=== PATIENT | female | born 1945 | race Caucasian/White ===

== ENCOUNTER → 2018-11-18 13:33 | Outpatient (CLI) | payer MEDICARE, OTHER, SELFPAY ==
--- NOTE | 2018-11-18 13:38 | XR_ITS ---
PROCEDURE: XR HIP RT 2-3V W/PELVIS CLINICAL INDICATION: hip pain COMPARISON: XR FEMUR RT 2V from 11/18/2018 FINDINGS: There has been a prior total hip prosthesis placed on the left. There is some hypertrophic change of the left greater trochanter on the right there is a bipolar prosthesis. The femoral stem of the prosthesis extends to the mid femoral region. In addition, there is a long lateral bone plate extending from the proximal femur to the distal femur transfixed by multiple screws. There has been a total knee prosthesis placement on the right as well. No obvious orthopedic complication. No acute fracture or dislocation. There is good alignment. IMPRESSION: Postsurgical changes in both hips, right femur, and right knee as described above with no acute finding Dictated by: Roni Howard MD 11/18/2018 15:48 Signed by: <Electronically signed by Roni Howard MD in [place]> 11/18/2018 15:48
== END ==
PROVIDERS: PCP Emergency Medicine; Visit Provider Emergency Medicine
DX: M79.604 Pain in right leg; M25.551 Pain in right hip
CPT/HCPCS: 73502; 73552

== ENCOUNTER → 2019-01-11 07:50 | Outpatient (CLI) | payer MEDICARE, OTHER, SELFPAY ==
--- NOTE | 2019-01-11 07:51 | MR_ITS ---
PROCEDURE: MR LUMBAR SPINE WO CON CLINICAL INDICATION: back pain Right-sided low back pain with right leg pain numbness and tingling COMPARISON: No exams were available for comparison TECHNIQUE: Standard multiplanar multiecho sequences are performed without contrast. 3-D MIP and myelographic images are also rendered and reviewed FINDINGS: The spinal cord ends at the T12-L1 level. There is normal alignment. L1-L2: Mild degenerative disc disease with mild facet ligamentum hypertrophy with mild bilateral lateral recess narrowing L2-L3: There is moderate to severe facet and ligamentum hypertrophy with moderate to severe bilateral lateral recess narrowing and mild bilateral foraminal narrowing. There is transverse narrowing of the canal at this level. L3-L4: Severe facet and ligamentum hypertrophy with moderate to severe bilateral lateral recess narrowing and moderate right foraminal narrowing. There is canal stenosis at this level. Canal measures approximately 8 mm. L4-5: Bulging disc with severe facet and ligamentum hypertrophy with severe bilateral lateral recess narrowing and moderate to severe bilateral foraminal narrowing slightly greater on the right compared to the left. The canal measures approximately 5 mm in AP dimension at this level. L5-S1: Degenerative disc disease with bulging disc and a broad based left paracentral/foraminal/lateral disc protrusion with severe along with facet and ligamentum hypertrophy with severe left lateral recess and foraminal narrowing. There is moderate right foraminal narrowing and lateral recess narrowing on the right as well. IMPRESSION: 1. Abnormal MRI of the lumbar spine with multi level lumbar spondylosis with bulging disc, facet and ligamentum hypertrophy with varying degrees of lateral recess and foraminal narrowing and multilevel canal stenosis. Please see above for detailed description at each level. 2. L2-L3: There is moderate to severe facet and ligamentum hypertrophy with moderate to severe bilateral lateral recess narrowing and mild bilateral foraminal narrowing. There is transverse narrowing of the canal at this level. 3. L3-L4: Severe facet and ligamentum hypertrophy with moderate to severe bilateral lateral recess narrowing and moderate right foraminal narrowing. There is canal stenosis at this level. Canal measures approximately 8 mm. 4. L4-5: Bulging disc with severe facet and ligamentum hypertrophy with severe bilateral lateral recess narrowing and moderate to severe bilateral foraminal narrowing slightly greater on the right compared to the left. The canal measures approximately 5 mm in AP dimension at this level. 5. L5-S1: Degenerative disc disease with bulging disc and a broad based left paracentral/foraminal/lateral disc protrusion with severe along with facet and ligamentum hypertrophy with severe left lateral recess and foraminal narrowing. There is moderate right foraminal narrowing and lateral recess narrowing on the right as well. Dictated by: Roni Howard MD 01/12/2019 13:05 Electronically signed by Roni Howard MD in [place] 01/12/2019 13:05
== END ==
PROVIDERS: PCP Emergency Medicine; Visit Provider Emergency Medicine
DX: M54.9 Dorsalgia, unspecified (principal)
CPT/HCPCS: 72148; 76376

== ENCOUNTER → 2019-01-24 13:38 | Outpatient (CLI) | payer MEDICARE, OTHER, SELFPAY ==
[2019-01-24 14:40] LABS: Amphetamine/Metha Screen,Urine Negative ng/mL (<1000); Barbiturates Screen,Urine Negative ng/mL (<200); Benzodiazepines Screen,Urine Negative ng/mL (<200); Cannabinoid Screen,Urine Negative ng/mL (<50); Cocaine Screen,Urine Negative ng/mL (<300); Methadone Screen,Urine Negative ng/mL (<300); Opiate Screen,Urine Negative ng/mL (<300); Phencyclidine Screen,Urine Negative ng/mL (<25)
[2019-02-03 17:14] LABS: Opiates Negative (Cutoff=100); Oxymorphone (GC/MS) 133 ng/mL (Cutoff=100)
== END ==
PROVIDERS: Visit Provider Emergency Medicine
DX: Z79.899 Other long term (current) drug therapy (principal)
CPT/HCPCS: 80305; 80361; 80365; G0480

== ENCOUNTER → 2019-02-22 16:51 | Outpatient (CLI) | payer MEDICARE, OTHER, SELFPAY | PROVIDERS: Visit Provider Emergency Medicine | DX: M54.9 Dorsalgia, unspecified (principal); M47.816 Spondylosis without myelopathy or radiculopathy, lumbar region; M48.061 Spinal stenosis, lumbar region without neurogenic claudication ==

== ENCOUNTER → 2019-06-16 16:51 | Outpatient (CLI) | payer MEDICARE, OTHER, SELFPAY ==
[2019-06-16 18:51] LABS: Phencyclidine Screen,Urine Negative ng/ml (<25)
[2019-06-16 19:00] LABS: Amphetamine/Metha Screen,Urine Negative ng/ml (<1000); Barbiturates Screen,Urine Negative ng/ml (<200)
[2019-06-16 19:01] LABS: Benzodiazepines Screen,Urine Negative ng/ml (<200)
[2019-06-16 19:02] LABS: Cannabinoid Screen,Urine Negative ng/ml (<50); Opiate Screen,Urine Negative ng/ml (<300)
[2019-06-16 19:03] LABS: Cocaine Screen,Urine Negative ng/ml (<300)
[2019-06-16 19:04] LABS: Methadone Screen,Urine Negative ng/ml (<300)
== END ==
PROVIDERS: Visit Provider Emergency Medicine
DX: M54.5 Low back pain (principal)
CPT/HCPCS: 80305

== ENCOUNTER → 2020-10-04 10:54 | Outpatient (CLI) | payer MEDICARE, OTHER, SELFPAY ==
--- NOTE | 2020-10-04 11:00 | XR_ITS ---
PROCEDURE: XR CHEST 2V CLINICAL HISTORY: shortness of breath COMPARISON: MR MR LUMBAR SPINE WO CON from 01/11/2019 FINDINGS: The cardiomediastinal silhouette and pulmonary vascularity are within normal limits. There is calcified granuloma in the left upper lobe. The remaining lungs are clear. There is mild wedging involving the L1 vertebral body which appears chronic but was not present on 01/11/2019 MRI. There is loss of height anteriorly of approximately 40 percent IMPRESSION: No acute chest findings. Interval development of L1 compression fracture which appears chronic but was not present on 01/11/2019 Dictated by: Roni Howard MD 10/04/2020 11:57 Roni Howard MD in [place] 10/04/2020 11:57
== END ==
PROVIDERS: PCP Emergency Medicine; Visit Provider Emergency Medicine
DX: R06.02 Shortness of breath (principal)
CPT/HCPCS: 71046

== ENCOUNTER → 2020-10-07 17:36 | Outpatient (CLI) | payer MEDICARE, OTHER, SELFPAY ==
[2020-10-07 18:49] LABS: Amphetamine/Metha Screen,Urine Negative ng/ml (<1000)
[2020-10-07 18:50] LABS: Barbiturates Screen,Urine Negative ng/ml (<200); Benzodiazepines Screen,Urine Negative ng/ml (<200)
[2020-10-07 18:51] LABS: Cannabinoid Screen,Urine Negative ng/ml (<50)
[2020-10-07 18:52] LABS: Cocaine Screen,Urine Negative ng/ml (<300); Methadone Screen,Urine Negative ng/ml (<300)
[2020-10-07 18:53] LABS: Opiate Screen,Urine Positive ng/ml (<300); Phencyclidine Screen,Urine Negative ng/ml (<25)
== END ==
PROVIDERS: Visit Provider Emergency Medicine
DX: M54.5 Low back pain (principal)
CPT/HCPCS: 80305

== ENCOUNTER → 2020-12-03 18:05 | Outpatient (CLI) | payer MEDICARE, OTHER, SELFPAY ==
[2020-12-03 19:45] LABS: Amphetamine/Metha Screen,Urine Negative ng/ml (<1000)
[2020-12-03 19:46] LABS: Barbiturates Screen,Urine Negative ng/ml (<200); Benzodiazepines Screen,Urine Negative ng/ml (<200)
[2020-12-03 19:47] LABS: Cannabinoid Screen,Urine Negative ng/ml (<50)
[2020-12-03 19:48] LABS: Cocaine Screen,Urine Negative ng/ml (<300); Methadone Screen,Urine Negative ng/ml (<300)
[2020-12-03 19:49] LABS: Opiate Screen,Urine Positive ng/ml (<300)
[2020-12-03 19:50] LABS: Phencyclidine Screen,Urine Negative ng/ml (<25)
== END ==
PROVIDERS: Visit Provider Emergency Medicine
DX: M47.816 Spondylosis without myelopathy or radiculopathy, lumbar region (principal)
CPT/HCPCS: 80305

== ENCOUNTER → 2020-12-30 16:32 | Outpatient (CLI) | payer MEDICARE, OTHER, SELFPAY ==
--- NOTE | 2020-12-30 16:35 | MR_ITS ---
PROCEDURE: MR LUMBAR SPINE WO CON CLINICAL INDICATION: back pain COMPARISON: MR MR LUMBAR SPINE WO CON from 01/11/2019 TECHNIQUE: Standard multiplanar multiecho sequences are performed without contrast. 3-D MIP and myelographic images are also rendered and reviewed FINDINGS: There is normal alignment. [id number] wedge compression changes have developed at L1. This however does not appear acute. There is mild kyphosis at L1-L2. No retropulsion. There is mild facet and ligamentum hypertrophy with bilateral lateral recess narrowing and mild bilateral foraminal narrowing not significantly changed L2-L3: Minimal bulging disc with severe facet and ligamentum hypertrophy with severe bilateral lateral recess narrowing and mild left foraminal narrowing. There is transverse narrowing of the canal overall not significantly changed. L3-L4: Bulging disc. 3 mm retrolisthesis of L3. Facet and ligamentum hypertrophy. Canal stenosis of 7 mm with severe bilateral lateral recess narrowing and mild bilateral foraminal narrowing overall not significantly changed. There is some impingement upon the right L4 nerve root by the facet hypertrophy and the bulging disc not significantly changed. L4-5: Bulging disc with severe facet and ligamentum hypertrophy with severe canal stenosis of 6 mm along with severe bilateral lateral recess narrowing and moderate to severe bilateral foraminal narrowing not significantly changed. The canal stenosis is not significantly changed. L5-S1: Degenerative disc disease with bulging disc and a broad base left paracentral/foraminal/lateral disc protrusion/disc osteophyte complex along with facet and ligamentum hypertrophic change. With severe left lateral recess and foraminal narrowing and moderate right foraminal narrowing overall not significantly changed. IMPRESSION: Multilevel lumbar spondylosis with facet and ligamentum hypertrophy with resultant lateral recess and foraminal narrowing and canal stenosis overall not significantly changed. Please see above for detailed description at each level. No extruded herniated disc. 40 percent wedge compression changes of L1 which has developed in the interval but does not appear acute. No retropulsion. Dictated by: Roni Howard MD 12/31/2020 14:29 Roni Howard MD in [facility] 12/31/2020 14:29
== END ==
PROVIDERS: PCP Emergency Medicine; Visit Provider Emergency Medicine
DX: M48.061 Spinal stenosis, lumbar region without neurogenic claudication (principal)
CPT/HCPCS: 72148; 76376

== ENCOUNTER 2021-03-13 10:13 | Emergency (ER) | payer MEDICARE, OTHER, SELFPAY ==
[2021-03-13 10:14] VITALS: PULSE 110; RESP 16; TEMP 37; O2SAT 100; BMI 21.4
--- NOTE | 2021-03-13 10:25 | XR_ITS ---
PROCEDURE: XR HIP RT 2-3V W/PELVIS XR FEMUR RT 2V CLINICAL INDICATION: fall, injury COMPARISON: CR XR FEMUR RT 2V from 11/18/2018 CR XR HIP RT 2-3V W/PELVIS from 11/18/2018 CR XR FEMUR RT 2V from 03/13/2021 FINDINGS: Right hip bipolar prosthesis present. No evidence of prosthesis dislocation. There is an acute transverse fracture at the base of the right greater trochanter. The stem into the proximal femur of the prosthesis is unremarkable. There is a lateral bone plate extending from the proximal femur to the distal femur which appears intact. No mid or distal femur fracture apparent there is a total right knee prosthesis also present. A total left hip prosthesis is present. Bony hypertrophy is present at the medial is scutal region on both sides and could be due to old fractures. IMPRESSION: Acute nondisplaced fracture at the base of the right greater trochanter. Status post bipolar right hip prosthesis placement and long the lateral bone plate of the femur. No evidence of prosthesis fracture or malfunction. Status post total knee prosthesis placement. Dictated by: Roni Howard MD 03/13/2021 11:42 Roni Howard MD in [place] 03/13/2021 11:42
--- NOTE | 2021-03-13 10:52 | PC.NURSE ---
Calling Dr. Martinez office
--- NOTE | 2021-03-13 10:52 | HMH.EDGENADL ---
ED Disposition Clinical Impression: Closed right hip fracture Qualifiers: Encounter type: initial encounter Qualified Code(s): S72.001A - Fracture of unspecified part of neck of right femur, initial encounter for closed fracture Disposition: Home, Self-Care Condition on Discharge: Fair Instructions: How to Use Crutches, DI for Hip Fracture Additional Instructions: Use crutches or walker as needed. You may increase Percocet to 4 times a day for pain. See Dr. Velarde in the office tomorrow at 10 AM or 1 PM. Make appointment to see Dr. Martinez, orthopedics. Prescriptions: Oxycodone HCl/Acetaminophen [Percocet 10-325 mg Tablet] 1 tab PO Q6H PRN #20 tab PRN Reason: Moderate To Severe Pain Transmission Status: Sent to [facility] Referrals: Kedar Velarde MD [Primary Care Provider] - - Critical Care Critical Care Time: No Attestation: On 03/13/21, the high probability of a clinically significant, sudden or life threatening deterioration of the following system(s) required my full and direct attention, intervention and personal management. The time I documented below is in addition to time spent performing reported procedures but includes the following listed in this critical care notation. Medical Decision Making - Sebastian Inquiry Pt receiving controlled substance: Yes Sebastian was queried for this patient: Yes Risks and benefits of using a controlled substance: were not discussed with pt by me Vital Signs: 03/13/21 10:14 03/13/21 11:31 03/13/21 12:00 Temperature 98.6 F Temperature Source Oral Pulse Rate 74 80 Pulse Rate [Right] 110 H Respiratory Rate 16 15 15 Blood Pressure 161/86 H 171/94 H Blood Pressure Mean 111 105 02 Sat by Pulse Oximetry 100 96 98 Oxygen Delivery Method Room Air 03/13/21 12:10 Temperature Temperature Source Pulse Rate 73 Pulse Rate [Right] Respiratory Rate 15 Blood Pressure 165/97 H Blood Pressure Mean 101 02 Sat by Pulse Oximetry 95 Oxygen Delivery Method - Lab Data Lab Results 03/13/21 10:30: WBC 5.3, RBC 4.12 L, Hgb 12.8, Hct 39.5, MCV 95.8, MCH 31.0, MCHC 32.3, RDW 14.9, Plt Count 219, MPV 8.0, Neut % (Auto) 47.7, Lymph % (Auto) 38.6, [place] % (Auto) 8.5, Eos % (Auto) 4.5, Baso % (Auto) 0.7, Neut # (Auto) 2.5, Lymph # (Auto) 2.0, [place] # (Auto) 0.5, Eos # (Auto) 0.2, Baso # (Auto) 0.0 03/13/21 10:30: Sodium 139, Potassium 3.2 L, Chloride 104, Carbon Dioxide 28, Anion Gap 10.2, BUN 20 H, Creatinine 1.20 H, Estimated Creat Clear 37, Estimated GFR 44 L, Est GFR ( Amer) 53 L, Glucose 102 H, Calcium 9.1 03/13/21 11:33: SARS-CoV-2 (PCR) Not detected, Influenza A Untype (PCR) Not detected, Influenza Type B (PCR) Not detected Result diagrams: 03/13/21 10:30 03/13/21 10:30 Orders (Tests/Meds): ED MEDICATIONS Discontinued Medications Generic Name Dose Route Start Last Admin Trade Name Milagros PRN Reason Stop Dose Admin Hydromorphone HCl 0.5 mg 03/13/21 10:27 03/13/21 10:42 Hydromorphone 2mg/Ml Syringe IV 03/13/21 10:28 0.5 mg ONCE ONE Administration Hydromorphone HCl 1 mg 03/13/21 10:59 03/13/21 11:03 Hydromorphone 2mg/Ml Syringe IV 03/13/21 11:00 1 mg ONCE ONE Administration Hydromorphone HCl 1 mg 03/13/21 12:04 03/13/21 12:05 Hydromorphone 2mg/Ml Syringe IV 03/13/21 12:05 1 mg ONCE ONE Administration Ondansetron HCl 4 mg 03/13/21 10:26 03/13/21 10:42 Ondansetron 4mg/2ml Vial IV 03/13/21 10:27 4 mg ONCE ONE Administration ORDERS Category Date Time Status Consult to Orthopedic Surgery [CONS] Stat Cons 03/13/21 11:06 Ordered - Physician Consults Physician Consulted: Juan Time: 11:35 Reason -: Orthopedic Eval/Care Comment/Response: Nonoperative treatment. May walk with a walker. Discussed with the patient. She has a walker but says that she think she will do better on crutches and requests a set of crutches. Additional Consult: Donna Time: 12:10 Reason -: Pt condition
[2021-03-13 10:53] LABS: Basophils % 0.7 % (0.1-2.0); Eosinophils # 0.2 K/mm3 (0.0-0.4); Eosinophils % 4.5 % (0.1-12.0); Hematocrit 39.5 % (37.0-47.0); Hemoglobin 12.8 g/dL (12.2-16.2); Lymphocytes % 38.6 % (10-50); Mean Corpuscular HGB Conc 32.3 g/dL (31.8-35.4); Mean Corpuscular Volume 95.8 fl (81-99); Monocytes # 0.5 K/mm3 (0.1-1.0); Monocytes % 8.5 % (1.7-9.3); Neutrophils # 2.5 K/mm3 (1.8-7.8); Neutrophils % 47.7 % (37.0-80.0); Platelet Count 219 K/mm3 (142-424); Red Blood Count 4.12 M/mm3 (4.20-5.40); Red Cell Distribution Width 14.9 % (11.5-17.5); White Blood Count 5.3 K/mm3 (4.8-10.8)
[2021-03-13 10:55] LABS: Chloride 104 mmol/L (98-107); Potassium 3.2 mmoL/L (3.5-5.1); Sodium 139 mmol/L (136-145)
[2021-03-13 10:58] LABS: Anion Gap 10.2 mEq/L (5-15); Blood Urea Nitrogen 20 mg/dl (7-17); Calcium 9.1 mg/dl (8.4-10.2); Carbon Dioxide 28 mmol/L (22.0-30.0); Creatinine Clearance Estimated 37 mL/min (50-200); Estimated Glomerular Filt Rate 44 ml/min (>60); GFR (African American) 53 ML/MIN (>60); Glucose 102 mg/dl (74-100)
--- NOTE | 2021-03-13 11:09 | PC.NURSE ---
Spoke with Indu in Dr. Askew office and she advised he was not in yet and she would give him a call.
[2021-03-13 11:31] VITALS: BP 161/86; PULSE 74; RESP 15; O2SAT 96
--- NOTE | 2021-03-13 11:33 | PC.NURSE ---
speaking with Dr. Martinez
--- NOTE | 2021-03-13 11:40 | PC.NURSE ---
has been paged.
--- NOTE | 2021-03-13 11:42 | PC.NURSE ---
office has been called. Will call back shortly.
[2021-03-13 11:45] LABS: Coronavirus 19, PCR Not Detected (NotDetected); Influenza A, PCR Not Detected (NotDetected); Influenza B, PCR Not Detected (NotDetected)
--- NOTE | 2021-03-13 11:54 | PC.NURSE ---
will call back.
[2021-03-13 12:00] VITALS: BP 171/94; PULSE 80; RESP 15; O2SAT 98
[2021-03-13 12:10] VITALS: BP 165/97; PULSE 73; RESP 15; O2SAT 95
--- NOTE | 2021-03-13 12:12 | PC.NURSE ---
speaking with DR. Thompson
[2021-03-13 12:31] VITALS: BP 165/91; PULSE 72; RESP 15; O2SAT 96
[2021-03-13 13:11] VITALS: BP 165/91; PULSE 79; RESP 16; TEMP 36.8; O2SAT 99
== END 2021-03-13 13:13 | disposition home or self-care (01) ==
PROVIDERS: Emergency Provider Emergency Medicine; PCP Emergency Medicine
DX: S72.001A Fracture of unspecified part of neck of right femur, initial encounter for closed fracture (principal); I10 Essential (primary) hypertension; K21.9 Gastro-esophageal reflux disease without esophagitis; Z87.891 Personal history of nicotine dependence; W01.0XXA Fall on same level from slipping, tripping and stumbling without subsequent striking against object, initial encounter; Y92.019 Unspecified place in single-family (private) house as the place of occurrence of the external cause
CPT/HCPCS: 73502; 73552; 80048; 85025; 96374; 96375; 96376; 99283; C9803; J2405; U0003; U0005

== ENCOUNTER → 2021-03-18 10:08 | Outpatient (CLI) | payer MEDICARE, OTHER, SELFPAY ==
--- NOTE | 2021-03-18 10:13 | XR_ITS ---
PROCEDURE: XR HIP RT 2-3V W/PELVIS CLINICAL INDICATION: right hip pain/ fracture COMPARISON: CR XR HIP RT 2-3V W/PELVIS from 03/13/2021 FINDINGS: AP view of the pelvis shows a total left hip prosthesis in good position. Bipolar prosthesis is present on right with nondisplaced fracture at the base of the right greater trochanter. Short intramedullary leonardo is in good position and the lateral femur bone plate is in good position incompletely imaged distally. There is an old right superior pubic ramus fracture at the junction with the ischium and an old left acetabular fracture. IMPRESSION: No change nondisplaced fracture base of right greater trochanter with bipolar right hip prosthesis in place and total left hip prosthesis in place. Dictated by: Roni Howard MD 03/18/2021 17:20 Roni Howard MD in [place] 03/18/2021 17:20
== END ==
PROVIDERS: PCP Emergency Medicine; Visit Provider Orthopaedic Surgery
DX: S72.001D Fracture of unspecified part of neck of right femur, subsequent encounter for closed fracture with routine healing (principal)
CPT/HCPCS: 73502

== ENCOUNTER → 2021-04-22 09:54 | Outpatient (CLI) | payer MEDICARE, OTHER, SELFPAY ==
--- NOTE | 2021-04-22 10:05 | XR_ITS ---
FINAL REPORT CLINICAL HISTORY: Right hip FX COMPARISON: March 18, 2021 FINDINGS: 2 views of the right hip were obtained. The cortical disruption of the base of the greater trochanter is again seen but less evident. There has been bilateral hip arthroplasty. There is a long stem femoral component on the right. IMPRESSION: Cortical disruption at the base of the right greater trochanter is less evident than on the prior. CT or MRI would be degraded by artifact. Careful clinical correlation is recommended. Reviewed, Interpreted and Dictated by Nicola Rincon MD Transcribed by Atilio Wu Authenticated by Nicola Rincon MD on 04/22/2021 11:24:56 AM [facility]
== END ==
PROVIDERS: PCP Emergency Medicine; Visit Provider Orthopaedic Surgery
DX: S72.001A Fracture of unspecified part of neck of right femur, initial encounter for closed fracture (principal)
CPT/HCPCS: 73502

== ENCOUNTER → 2021-10-01 07:07 | Outpatient (CLI) | payer MEDICARE, OTHER, SELFPAY | PROVIDERS: PCP Emergency Medicine; Visit Provider Emergency Medicine | DX: R53.83 Other fatigue (principal) ==

== ENCOUNTER → 2021-11-12 11:58 | Outpatient (CLI) | payer MEDICARE, OTHER, SELFPAY ==
--- NOTE | 2021-11-12 12:06 | XR_ITS ---
FINAL REPORT CLINICAL HISTORY: closed right hip fracture COMPARISON: April 22, 2021 FINDINGS: RIGHT HIP Two views of the right hip with an AP pelvis were obtained. There are fractures of the right superior inferior pubic rami of uncertain age. Parts of them are chronic but there appears to superimposed acute to subacute fractures. There is a chronic fracture of the greater trochanter. There are chronic calcifications of the superior right hip. There are postoperative changes from bilateral hip arthroplasties. There is dislocation of the femoral component of the right hip arthroplasty. IMPRESSION: Fractures of the right superior inferior pubic rami of uncertain age as above. Follow-up radiographs may be helpful. Postoperative changes as above with dislocation of the femoral component on the right. Reviewed, Interpreted and Dictated by Hunter Devi III, MD Transcribed by Jennifer Guzman Authenticated and [facility]
--- NOTE | 2021-11-12 15:48 | ECG_ITS ---
APPROVED REPORT Exam: Resting ECG HR:77 bpm ECG Measurements Heart Rate 77 AXES SC 157 P 140 QRSd 95 QRS 94 QT 383 T 64 QTc 414 Conclusion SINUS RHYTHM BORDERLINE RIGHT AXIS DEVIATION [QRS AXIS > 90] BORDERLINE ECG UNCONFIRMED REPORT Electronically signed by : Tru Thornton MD 11/12/2021 17:35:58
[2021-11-12 15:56] LABS: Coronavirus 19, PCR Not Detected (NotDetected); Influenza A, PCR Not Detected (NotDetected); Influenza B, PCR Not Detected (NotDetected)
--- NOTE | 2021-11-12 16:12 | XR_ITS ---
PROCEDURE INFORMATION: Exam: XR Chest Exam date and time: 11/12/2021 4:17 PM Age: 76 years old Clinical indication: Screening exam; Pre-operative exam; Other: Lung; Additional info: Pre op in the am TECHNIQUE: Imaging protocol: Radiologic exam of the chest. Views: 2 views. COMPARISON: CR XR CHEST 2V 10/04/2020 11:27 AM FINDINGS: Calcified left upper lobe granuloma, stable and benign. Mild COPD related lung changes and emphysema. No acute interstitial or airspace disease. No pleural effusion or pneumothorax. Note that there is a pseudo pleural line in the left lung periphery, related to superimposition of a skin fold. This is not related to a pneumothorax. Normal cardiomediastinal silhouette and central airways. Slightly calcified aortic knob. No acute skeletal abnormality or aggressive osseous lesion. IMPRESSION: No acute chest pathology.
[2021-11-12 16:20] LABS: Basophils % 0.7 % (0.1-2.0); Eosinophils # 0.2 K/mm3 (0.0-0.4); Eosinophils % 3.7 % (0.1-12.0); Hematocrit 43.8 % (37.0-47.0); Hemoglobin 13.3 g/dL (12.2-16.2); Lymphocytes % 17.2 % (10-50); Mean Corpuscular HGB Conc 30.4 g/dL (31.8-35.4); Mean Corpuscular Hemoglobin 32.8 pg (27.0-31.2); Mean Platelet Volume 9.8 fl (7.4-10.4); Monocytes # 0.3 K/mm3 (0.1-1.0); Monocytes % 5.3 % (1.7-9.3); Neutrophils # 4.1 K/mm3 (1.8-7.8); Platelet Count 156 K/mm3 (142-424); Red Blood Count 4.05 M/mm3 (4.20-5.40); Red Cell Distribution Width 14.8 % (11.5-17.5); White Blood Count 5.6 K/mm3 (4.8-10.8)
[2021-11-12 16:29] LABS: Alanine Aminotransferase 9 U/L (12-78); Albumin Level 3.6 g/dl (3.5-5.0); Albumin/Globulin Ratio 1.1 (1.1-1.8); Alkaline Phosphatase 148 U/L (38-126); Aspartate Amino Transferase 18 U/L (14-36); Blood Urea Nitrogen 22 mg/dl (7-17); Calcium 9.3 mg/dl (8.4-10.2); Carbon Dioxide 18 mmol/L (22.0-30.0); Chloride 112 mmol/L (98-107); Estimated Glomerular Filt Rate 37 ml/min (>60); GFR (African American) 44 ML/MIN (>60); Globulin 3.4 g/dL (1.3-3.2); Glucose 103 mg/dl (74-100); Sodium 137 mmol/L (136-145)
[2021-11-12 16:30] LABS: Bilirubin,Total < 0.1 mg/dl (0.2-1.3)
== END ==
PROVIDERS: PCP Emergency Medicine; Visit Provider Orthopaedic Surgery
DX: S72.001A Fracture of unspecified part of neck of right femur, initial encounter for closed fracture (principal); S32.000A Wedge compression fracture of unspecified lumbar vertebra, initial encounter for closed fracture; S73.005A Unspecified dislocation of left hip, initial encounter; Z01.818 Encounter for other preprocedural examination; Z20.822 Contact with and (suspected) exposure to COVID-19
CPT/HCPCS: 36415; 71046; 73502; 80053; 85025; 93005; C9803; U0003; U0005

== ENCOUNTER 2021-11-13 06:08 | Day surgery (SDC) | payer MEDICARE, OTHER, SELFPAY ==
[2021-11-13] VITALS (11 sets, daily range): BP systolic 85–144; BP diastolic 45–67; PULSE 58–71; RESP 12–18; TEMP 36.1–36.9; O2SAT 94–100; BMI 21.4
--- NOTE | 2021-11-13 08:09 | XR_ITS ---
FINAL REPORT CLINICAL HISTORY: REDUCTION OF RT HIP IN OR USING C ARM FINDINGS: FLUORO TIME PROCEDURE: Fluoroscopy in the operating room. FINDINGS: Fluoroscopy time was provided by the radiology department for the clinical service. 7 spot films were obtained for reduction of the right hip. Fluoroscopy exposure time: 0.06 seconds IMPRESSION: See operative report. Reviewed, Interpreted and Dictated by Hunter Devi III, MD Transcribed by Jennifer Guzman Authenticated and [facility]
--- NOTE | 2021-11-13 08:20 | P.PN_ITS ---
[facility] Anesthesia Checklist - Structural Data Admitted From: Home Planned Operative Procedure/s: closed red r hip Consent for Planned Operative Procedure(s) Verified: Yes - Additional verifications Anesthesia Reactions: No Hx Blood Transfusions: No Blood Transfusion Reaction: No - Airway Assessment C-Spine Mobility Assessed: Yes TMJ Mobility Assessed: Yes Dentition: Poor Dentition - Neurological Assessment Level of Consciousness: Awake, Alert, Appropriate - Anesthesia Plan Anesthesia Risk discussed: Yes Anesthesia Plan: Verified ASA Class: III Anesthesia Type: General [facility] History I have reviewed the patient's past medical history: Yes Medical History: Reports:: Carotid Stenosis, Gastroesophageal Reflux Disease(GERD), Kidney Stones Denies:: Cancer, Diabetes Mellitus Type 1, Diabetes Mellitus Type 2, Internal Pacemaker, MRSA, Seizures *Have you ever received a pneumonia vaccine?: Yes *Have you received a flu vaccine this season?: Yes Other Medical History: Reports: Other. Denies: Blood Transfusion Reaction Anesthesia experience/problems:: none Laterality Cases: Bilateral: Arthroscopy Knee, Total Hip Replacement Other Surgeries: Yes: Cholecystectomy, Colonoscopy, Hysterectomy-Total, Other. No: Pacemaker Amputation: No Fractures: Yes - *Social History Last grade of school completed: High school graduate Smoking Status: Never smoker Tobacco Type: cigarettes # Packs/Day (cigarettes): 1 Alcohol Intake: never Substance Use Type: denies use *Occupational Status:: retired Housing: house Household Members: spouse *Travel in the last 8 weeks: None Family Hx:: No significant family history
--- NOTE | 2021-11-13 08:22 | HMH.ANESI ---
[facility] Anesthesia Record Part I Intake, IV Amount: 500 Estimated blood loss (mL): 0 Urine output (mL): 0 Blood Pressure: 85/45 SaO2: 94 Pulse Rate: 58 Respiratory Rate: 12 Temperature: 97.4 F Patient is:: Awake, Stable Stable to PACU at:: 08:15
--- NOTE | 2021-11-13 09:51 | PC.NURSE ---
0845- Kelsey- texted Dr holguin about patient pain medication. He texted okay to give Percocet 10/325mg
--- NOTE | 2021-11-13 09:54 | PC.NURSE ---
0842-detailed report called to BIN Felipe 0845-pt transported to post op via stretcher w/eboni rails up and left in care of BIN Felipe with bed locked in lowest position, vss, pt stable
--- NOTE | 2021-11-13 09:58 | PC.NURSE ---
0915- patient is WBAT- assisted to BR and to commode. Beside patient and helped her dress. Patient urinated and then ambulated to postop bay placed in . Patient tolerated well. Stated pain at a 7/10 seems to be getting a lil better stated Im just really nervous about using it
--- NOTE | 2021-11-13 16:32 | HMH.OPNOTE ---
Date of procedure: 11/13/21 Pre-op Diagnosis:: Dislocation of total hip arthroplasty, right hip Post-op Diagnosis:: Same Procedure performed:: Closed reduction, right hip Surgeon:: Alexandru Martinez MD Line Worker(s):: Janina Singh PA-C VICE PRESIDENT SAFETY:: Fab Roa Anesthesia: LMA Estimated blood loss (mL): 0 Clinical Note:: Ms. Vann is a 76 year old female patient who presented to the office yesterday with history of right hip pain for 2 weeks. She had a right total hip arthroplasty many years ago. I have seen her previously for a nondisplaced right greater trochanter fracture in March this year and recommended nonsurgical management. The patient was subsequently lost to follow up. She says she felt immediate pain in her right hip area when she stood up from a seated position about 2 weeks ago. She states that she has been unable to bear weight on the right leg since that time. She did not seek any medical attention until yesterday. Evaluation in the office including x-rays confirmed a dislocated total hip arthroplasty on the right side. No history of any chills, fevers or rigors. She is a chronic smoker and is retired. She has had bilateral knee and bilateral hip replacements. Her medical history includes GERD and hypertension. She denies any other symptoms or concerns at this time. Please refer to orthopedic office note for full details. Operative findings:: Posterior dislocation of right total hip arthroplasty as noted on the preoperative x-ray. The hip joint is easily reducible but is very unstable. After reducing the hip joint, the limb was immobilized with an abduction wedge. Operative note:: On the day of the procedure, patient was met in the preoperative area and positively identified. I have again discussed about the procedure, risks and benefits and alternatives in detail. She dislocated the hip joint 2 weeks ago and have told her that there is a possibility we may not be able to reduce the hip joint by closed manipulation. I specifically told her that I am not planning to perform any open surgical procedure as she may need a revision hip replacement and we do not have the necessary equipment or expertise for that. If she does need an open reduction, we will try and transfer her to [facility] for further management. I have again discussed the procedure of closed reduction of the right hip including risks, benefits and alternatives. The complications discussed include but are not limited to failure to reduce the hip joint, periprosthetic fractures, neurovascular injury, recurrent dislocation, continued pain and need for further surgery. All the questions were answered and she wished to proceed with the procedure as planned. The limb was appropriately marked and initialed by me. No guarantees were given or implied. Patient is brought to the operating room and placed supine on the operating table. All the bony prominences were appropriately padded. A general anesthesia was administered by the rug inspector. A preprocedure timeout was performed as per hospital policy. C-arm fluoroscopy was utilized during the procedure. The right hip joint was easily reduced with [place] maneuver. The hip was taken through range of motion and screened under C-arm fluoroscopy confirming satisfactory reduction. It is noted that the hip joint is very unstable at 90 degrees of flexion and internal rotation-the hip joint dislocating posteriorly. The hip joint was again reduced back into place and is screened under fluoroscopy confirming satisfactory reduction. The hip joint was immobilized with an abduction wedge. Patient tolerated the procedure well and there were no immediate complications. Following completion of the closed reduction, the patient is reversed from the anesthetic and transferred onto the [facility]. She was then safely transported to the postoperative recovery area in a stable condition. Patient is discharged home with appropriate written instructions a
--- NOTE | 2021-11-13 16:41 | HMH.ANESII ---
[facility] Anesthesia Record Part II Discharge Time: 08:45 Destination: Surgical Day Care (OP Surgery) PACU nurse assessment reviewed?: Yes Patient Condition:: Good Anesthesia Complications:: None Swallowing reflex intact?: Yes Cyanosis?: No Blood Pressure: 111/60 Pulse Rate: 67 Temperature: 98.4 F Mental Status: Alert & Oriented Pain level:: 4 Nausea and/or vomitting:: None Intake, IV Amount: 0
== END 2021-11-13 09:41 | disposition home or self-care (01) ==
LOC: OR 06:10
PROVIDERS: PCP Emergency Medicine; Visit Provider Orthopaedic Surgery
DX: T84.020A Dislocation of internal right hip prosthesis, initial encounter (principal); I10 Essential (primary) hypertension; I65.23 Occlusion and stenosis of bilateral carotid arteries; K21.9 Gastro-esophageal reflux disease without esophagitis; Y79.2 Prosthetic and other implants, materials and accessory orthopedic devices associated with adverse incidents; Z79.899 Other long term (current) drug therapy
CPT/HCPCS: 27266; 73502; 76000; 96374; J2704

== ENCOUNTER 2021-11-14 09:34 | Emergency (ER) | payer MEDICARE, OTHER, SELFPAY ==
[2021-11-14] VITALS (17 sets, daily range): BP systolic 111–134; BP diastolic 55–80; PULSE 66–78; RESP 10–20; TEMP 36.6–36.7; O2SAT 96–100; BMI 21.4
--- NOTE | 2021-11-14 09:41 | XR_ITS ---
FINAL REPORT CLINICAL HISTORY: RIGHT HIP PAIN COMPARISON: 11/12/2021 FINDINGS: 2 views of the right hip with an AP pelvis were obtained. There is right hip arthroplasty. Again seen is dislocation of the femoral prosthetic component with superior displacement. There is a greater trochanter fracture with up to 7 mm of distraction, stable from prior. Postoperative changes are seen of the left hip. IMPRESSION: Right hip arthroplasty with dislocation of the femoral component and superior displacement. Reviewed, Interpreted and Dictated by Hunter Devi III, MD Transcribed by Atilio Wu Authenticated and [facility]
--- NOTE | 2021-11-14 09:42 | PC.NURSE ---
ED MD AT BEDSIDE
--- NOTE | 2021-11-14 09:45 | HMH.EDGENADL ---
ED Disposition Clinical Impression: Hip dislocation, right Disposition: Home, Self-Care Condition on Discharge: Good Instructions: DI for Moderate Sedation Additional Instructions: At this time was felt you are safe to be discharged home. If new or worsening symptoms please do not hesitate to return the emergency department. Please call and schedule an appointment with the orthopedist (bone doctor) within 3 to 5 days for continued evaluation. Referrals: Kedar Velarde MD [Primary Care Provider] - Alexandru Martinez MD [Staff Physician] - - Critical Care Critical Care Time: No Attestation: On , the high probability of a clinically significant, sudden or life threatening deterioration of the following system(s) required my full and direct attention, intervention and personal management. The time I documented below is in addition to time spent performing reported procedures but includes the following listed in this critical care notation. Medical Decision Making - Sebastian Inquiry Pt receiving controlled substance: No Vital Signs: 11/14/21 09:35 11/14/21 10:29 11/14/21 10:33 Temperature 98.0 F 98.0 F 98.0 F Temperature Source Oral Oral Oral Pulse Rate Pulse Rate [Radial] 75 78 74 Respiratory Rate 20 18 10 L Blood Pressure Blood Pressure [Right Arm] 120/55 L 132/67 115/59 L Blood Pressure Mean Blood Pressure Mean [Right Arm] 76 88 77 Blood Pressure Source [Right Arm] Automatic Cuff Automatic Cuff Automatic Cuff Blood Pressure Position [Right Arm] Sitting Supine Supine 02 Sat by Pulse Oximetry 98 98 96 Oxygen Delivery Method Room Air Nasal Cannula Nasal Cannula Oxygen Flow Rate (LPM) 2 2 11/14/21 10:38 11/14/21 10:40 11/14/21 10:42 Temperature Temperature Source Pulse Rate 68 Pulse Rate [Radial] 76 70 Respiratory Rate 10 L 12 13 Blood Pressure 111/60 Blood Pressure [Right Arm] 119/62 120/57 L Blood Pressure Mean 78 Blood Pressure Mean [Right Arm] 81 78 Blood Pressure Source [Right Arm] Automatic Cuff Manual Cuff/ Doppler Blood Pressure Position [Right Arm] Supine Supine 02 Sat by Pulse Oximetry 100 100 100 Oxygen Delivery Method Nasal Cannula Nasal Cannula Nasal Cannula Oxygen Flow Rate (LPM) 2 2 11/14/21 10:45 11/14/21 10:48 11/14/21 10:51 Temperature 98.0 F Temperature Source Oral Pulse Rate 68 Pulse Rate [Radial] 66 Respiratory Rate 14 13 Blood Pressure 112/57 L 115/76 Blood Pressure [Right Arm] 111/60 Blood Pressure Mean 72 85 Blood Pressure Mean [Right Arm] 77 Blood Pressure Source [Right Arm] Automatic Cuff Blood Pressure Position [Right Arm] Sitting 02 Sat by Pulse Oximetry 100 100 100 Oxygen Delivery Method Nasal Cannula Nasal Cannula Nasal Cannula Oxygen Flow Rate (LPM) 2 2 2 11/14/21 11:00 11/14/21 11:09 11/14/21 11:12 Temperature Temperature Source Pulse Rate 69 67 68 Pulse Rate [Radial] Respiratory Rate 14 18 12 Blood Pressure 116/57 L 121/58 L 116/56 L Blood Pressure [Right Arm] Blood Pressure Mean 73 83 78 Blood Pressure Mean [Right Arm] Blood Pressure Source [Right Arm] Blood Pressure Position [Right Arm] 02 Sat by Pulse Oximetry 100 100 99 Oxygen Delivery Method Nasal Cannula Nasal Cannula Nasal Cannula Oxygen Flow Rate (LPM) 2 2 2 11/14/21 11:22 11/14/21 11:30 11/14/21 11:39 Temperature Temperature Source Pulse Rate 67 66 67 Pulse Rate [Radial] Respiratory Rate 15 18 12 Blood Pressure 134/80 127/62 125/61 Blood Pressure [Right Arm] Blood Pressure Mean 93 85 75 Blood Pressure Mean [Right Arm] Blood Pressure Source [Right Arm] Blood Pressure Position [Right Arm] 02 Sat by Pulse Oximetry 100 100 100 Oxygen Delivery Method Nasal Cannula Nasal Cannula Nasal Cannula Oxygen Flow Rate (LPM) 2 2 2 11/14/21 11:45 Temperature Temperature Source Pulse Rate 68 Pulse Rate [Radial] Respiratory Rate 13 Blood Pressure 122/60 Blood Pressure [Right Arm] Blood Pressure Shelia
--- NOTE | 2021-11-14 09:50 | XR_ITS ---
FINAL REPORT CLINICAL HISTORY: PAIN COMPARISON: 03/13/2021 FINDINGS: Multiple views of the right femur were obtained. The right hip is displaced posteriorly as seen on the lateral view. There is lucency of the distal lateral femur of uncertain significance. There has been right knee arthroplasty. IMPRESSION: Lucency in the distal lateral femur of uncertain significance could be due to difference in projection from the prior exam but worsening bone resorption cannot be excluded. Follow-up may be helpful. Reviewed, Interpreted and Dictated by Hunter Devi III, MD Transcribed by Atilio Wu Authenticated and [facility]
--- NOTE | 2021-11-14 10:00 | PC.NURSE ---
PT PLACED IN GOWN, PLACED ON STRETCHER. WARM BLANKET PROVIDED
--- NOTE | 2021-11-14 10:05 | PC.NURSE ---
XR AT BEDSIDE
--- NOTE | 2021-11-14 10:09 | PC.NURSE ---
DR. MADRIGAL PAGED AT THIS TIME
--- NOTE | 2021-11-14 10:10 | PC.NURSE ---
SIMA GRAHAM SPEAKING WITH DR. MADRIGAL
--- NOTE | 2021-11-14 10:15 | PC.NURSE ---
CONSENT EXPLAINED TO PT AND BY ED MD. QUESTIONS ENCOURAGED AND ANSWERED. V/U SIGN BY
--- NOTE | 2021-11-14 10:20 | PC.NURSE ---
PT MOVED TO ROOM 2 FOR APPROPRIATE SEDATION MONITORING
--- NOTE | 2021-11-14 10:32 | XR_ITS ---
FINAL REPORT CLINICAL HISTORY: POST REDUCTION hip views only COMPARISON: 30 minutes prior FINDINGS: 2 views of the right hip were obtained. There has been interval reduction of the previous dislocation. There is right hip arthroplasty. IMPRESSION: Interval reduction of previous dislocation. Reviewed, Interpreted and Dictated by Hunter Devi III, MD Transcribed by Atilio Wu Authenticated and [facility]
--- NOTE | 2021-11-14 11:02 | PC.NURSE ---
1034 XR AT BEDSIDE
--- NOTE | 2021-11-14 11:38 | PC.NURSE ---
PT PROVIDED WATER, PT TOLERATED WELL
--- NOTE | 2021-11-14 11:39 | PC.NURSE ---
pt attempted to use the bedpan. pt states I'm going to bust and I can't go on the bedpan bansal cath placed
--- NOTE | 2021-11-14 12:00 | PC.NURSE ---
PT RESTING COMFORTABLY, AT BEDSIDE. DENIES NEEDS
--- NOTE | 2021-11-14 12:03 | PC.NURSE ---
ED MD AT BEDSIDE TO REEVALUATE PT
== END 2021-11-14 12:15 | disposition home or self-care (01) ==
PROVIDERS: Emergency Provider Emergency Medicine; PCP Emergency Medicine
DX: T84.020A Dislocation of internal right hip prosthesis, initial encounter (principal); Z79.899 Other long term (current) drug therapy; Z88.5 Allergy status to narcotic agent; Z88.8 Allergy status to other drugs, medicaments and biological substances; I10 Essential (primary) hypertension; K21.9 Gastro-esophageal reflux disease without esophagitis; I65.29 Occlusion and stenosis of unspecified carotid artery
CPT/HCPCS: 27266; 73502; 73552; 96365; 96375; 96376; 99285

== ENCOUNTER 2021-11-17 16:40 | Emergency (ER) | payer MEDICARE, OTHER, SELFPAY ==
--- NOTE | 2021-11-17 17:25 | PC.NURSE ---
pt placed in triage and assessed at this time. PT is stable with stable VSS. HR 85, oxygen 94 RA, 107/47 bp. PT aware that no beds are available and understands that it will be a wait for a bed availability.
--- NOTE | 2021-11-17 19:30 | PC.NURSE ---
called pt and recommenced that she come back in due her feeling like her hip is out. PT states that her has already went to work and she has no way back. ASked about other family that could bring her, she states she has no one and that she will be back early in the morning to get it fixed. Instructed if it got to bad with pain or anything else if she needed she could call the EMS. again pt states that she will come in the morning to get it fixed.
[2021-11-17 20:30] VITALS: BP 0/0; PULSE 0; RESP 0; TEMP -17.7; TEMP 0; O2SAT 0
== END 2021-11-17 20:32 | disposition left against medical advice (07) ==
LOC: ER 18:23
PROVIDERS: Emergency Provider Emergency Medicine; PCP Emergency Medicine
DX: Z53.21 Procedure and treatment not carried out due to patient leaving prior to being seen by health care provider (principal)

== ENCOUNTER 2021-11-18 09:04 | Emergency (ER) | payer MEDICARE, OTHER, SELFPAY ==
[2021-11-18] VITALS (19 sets, daily range): BP systolic 114–155; BP diastolic 61–88; PULSE 76–104; RESP 12–20; TEMP 37; O2SAT 93–98; BMI 21.4
--- NOTE | 2021-11-18 09:21 | HMH.EDGENADL ---
ED Disposition Clinical Impression: Hip dislocation, right Qualifiers: Encounter type: initial encounter Qualified Code(s): S73.004A - Unspecified dislocation of right hip, initial encounter Disposition: Home, Self-Care Condition on Discharge: Good Instructions: DI for Moderate Sedation Additional Instructions: Wear your knee brace and use your walker when ambulating. Follow-up with your orthopedic surgeon for consideration of hip revision. Referrals: Kedar Velarde MD [Primary Care Provider] - - Critical Care Critical Care Time: No Attestation: On 11/18/21, the high probability of a clinically significant, sudden or life threatening deterioration of the following system(s) required my full and direct attention, intervention and personal management. The time I documented below is in addition to time spent performing reported procedures but includes the following listed in this critical care notation. Medical Decision Making - Medical Records Medical records reviewed: Yes: I reviewed the patient's medical records. - Sebastian Inquiry Pt receiving controlled substance: No Vital Signs: 11/18/21 09:05 11/18/21 09:30 11/18/21 10:03 Temperature 98.6 F Temperature Source Oral Pulse Rate 85 85 Pulse Rate [Radial] 104 H Respiratory Rate 16 20 Blood Pressure 135/70 114/88 Blood Pressure [Right Arm] 155/74 H Blood Pressure Mean 95 95 Blood Pressure Mean [Right Arm] 101 Blood Pressure Position [Right Arm] Sitting 02 Sat by Pulse Oximetry 98 95 93 L Oxygen Delivery Method Room Air Oxygen Flow Rate (LPM) 11/18/21 10:25 11/18/21 10:27 11/18/21 10:30 Temperature Temperature Source Pulse Rate 89 83 Pulse Rate [Radial] 89 83 Respiratory Rate 20 20 18 Blood Pressure 142/69 H 152/76 H Blood Pressure [Right Arm] 142/69 H 152/76 H Blood Pressure Mean 90 93 Blood Pressure Mean [Right Arm] 93 101 Blood Pressure Position [Right Arm] 02 Sat by Pulse Oximetry 96 93 L 98 Oxygen Delivery Method Room Air Nasal Cannula Oxygen Flow Rate (LPM) 11/18/21 10:41 11/18/21 10:50 11/18/21 10:55 Temperature Temperature Source Pulse Rate 80 79 77 Pulse Rate [Radial] Respiratory Rate 17 18 18 Blood Pressure 140/66 124/64 133/61 Blood Pressure [Right Arm] Blood Pressure Mean 97 98 85 Blood Pressure Mean [Right Arm] Blood Pressure Position [Right Arm] 02 Sat by Pulse Oximetry 96 96 95 Oxygen Delivery Method Oxygen Flow Rate (LPM) 11/18/21 11:15 11/18/21 11:20 11/18/21 11:25 Temperature Temperature Source Pulse Rate 77 80 76 Pulse Rate [Radial] Respiratory Rate 18 18 12 Blood Pressure 140/65 141/63 H 134/65 Blood Pressure [Right Arm] Blood Pressure Mean 90 95 88 Blood Pressure Mean [Right Arm] Blood Pressure Position [Right Arm] 02 Sat by Pulse Oximetry 95 96 Oxygen Delivery Method Oxygen Flow Rate (LPM) 11/18/21 11:30 11/18/21 11:35 11/18/21 11:40 Temperature Temperature Source Pulse Rate 87 87 88 Pulse Rate [Radial] Respiratory Rate 18 16 15 Blood Pressure 142/66 H 127/87 140/68 Blood Pressure [Right Arm] Blood Pressure Mean 81 93 87 Blood Pressure Mean [Right Arm] Blood Pressure Position [Right Arm] 02 Sat by Pulse Oximetry Oxygen Delivery Method Oxygen Flow Rate (LPM) 11/18/21 11:45 11/18/21 11:51 11/18/21 12:06 Temperature Temperature Source Pulse Rate 88 89 Pulse Rate [Radial] 80 Respiratory Rate 12 20 17 Blood Pressure 139/63 148/74 H Blood Pressure [Right Arm] 140/66 Blood Pressure Mean 80 98 Blood Pressure Mean [Right Arm] 90 Blood Pressure Position [Right Arm] 02 Sat by Pulse Oximetry 96 95 96 Oxygen Delivery Method Nasal Cannula Oxygen Flow Rate (LPM) 2 11/18/21 12:09 Temperature 98.6 F Temperature Source Pulse Rate 80 Pulse Rate [Radial] Respiratory Rate 17 Blood Pressure 140/66 Blood Pressure [Right Arm] Blood Pressure Mean Blood Pres
--- NOTE | 2021-11-18 09:31 | XR_ITS ---
FINAL REPORT CLINICAL HISTORY: hip pain on the right hx of right hip replacement COMPARISON: November 14, 2021 FINDINGS: RIGHT HIP Two views of the right hip with an AP pelvis were obtained. There is no acute fracture. There is a dislocated right hip prosthesis. There is a long segment femoral component of the prosthesis. There is a 3.4 cm well corticated ossific density proximal to the femur that that appears to be chronic. No soft tissue abnormality is seen. There is some old healed fracture deformity of the lateral superior pubic ramus and the mid inferior pubic ramus on the right. IMPRESSION: Dislocation of right hip prosthesis. Old healed fracture deformity of the lateral superior pubic ramus and the mid inferior pubic ramus on the right. Reviewed, Interpreted and Dictated by Nicola Rincon MD Transcribed by Jennifer Guzman Authenticated and [facility]
--- NOTE | 2021-11-18 09:32 | PC.NURSE ---
radiology notified of x-ray
--- NOTE | 2021-11-18 09:34 | PC.NURSE ---
radiology taking pt to x-ray
--- NOTE | 2021-11-18 10:25 | PC.NURSE ---
assisted ER MD and RN with hip
--- NOTE | 2021-11-18 10:30 | PC.NURSE ---
called VANESSA dasilva post reduction XR
--- NOTE | 2021-11-18 10:43 | XR_ITS ---
FINAL REPORT CLINICAL HISTORY: post hip reduction COMPARISON: Right hip x-ray from the same day, 1 hour prior FINDINGS: RIGHT HIP One view of the right hip demonstrate no acute fracture. There has been successful interval reduction of the right hip prosthesis. Again noted, is an old fracture deformity of the right superior and inferior pubic rami. The visualized bony structures are well aligned. No soft tissue abnormality is seen. IMPRESSION: Interval reduction of right hip prosthesis. Reviewed, Interpreted and Dictated by Nicola Rincon MD Transcribed by Jennifer Guzman Authenticated and [facility]
--- NOTE | 2021-11-18 11:17 | PC.NURSE ---
assisted pt on bed perry and placed immoblizer on pt leg
== END 2021-11-18 12:11 | disposition home or self-care (01) ==
PROVIDERS: Emergency Provider Emergency Medicine; PCP Emergency Medicine
DX: S73.004A Unspecified dislocation of right hip, initial encounter (principal); Z87.39 Personal history of other diseases of the musculoskeletal system and connective tissue; Z79.899 Other long term (current) drug therapy; Z88.5 Allergy status to narcotic agent; Z88.8 Allergy status to other drugs, medicaments and biological substances; I65.29 Occlusion and stenosis of unspecified carotid artery; K21.9 Gastro-esophageal reflux disease without esophagitis
CPT/HCPCS: 27266; 73502; 96374; 96375; 96376; 99284

== ENCOUNTER → 2022-01-14 12:03 | Outpatient (CLI) | payer MEDICARE, OTHER, SELFPAY ==
--- NOTE | 2022-01-14 12:22 | XR_ITS ---
FINAL REPORT CLINICAL HISTORY: right hip dislocation COMPARISON: 11/18/2021 FINDINGS: Right hip Three views were obtained. There are postoperative changes from bilateral hip arthroplasties. There is superior dislocation of the femur. There is a chronic fracture of the right greater trochanter. There also chronic fractures of the right superior and inferior pubic rami. IMPRESSION: Superior dislocation of the femur. Chronic appearing findings as detailed above. Reviewed, Interpreted and Dictated by Hunter Devi III, MD Transcribed by Esther Ta Authenticated and . [facility]
== END ==
PROVIDERS: PCP Emergency Medicine; Visit Provider Orthopaedic Surgery
DX: M25.551 Pain in right hip (principal); S73.004A Unspecified dislocation of right hip, initial encounter
CPT/HCPCS: 73502

== ENCOUNTER 2022-01-16 10:36 | Day surgery (SDC) | payer MEDICARE, OTHER, SELFPAY ==
[2022-01-16] VITALS (9 sets, daily range): BP systolic 92–137; BP diastolic 40–75; PULSE 70–80; RESP 16–20; TEMP 36.3–37; O2SAT 97–100; BMI 23.6
--- NOTE | 2022-01-16 12:23 | EXP.OP.NOTE ---
Date of procedure: 01/16/22 Pre-op Diagnosis:: Dislocated right total hip arthroplasty Post-op Diagnosis:: Same Procedure performed:: Closed reduction right total hip arthroplasty Surgeon:: Zane Ruiz DO Anesthesia: VERONICA Estimated blood loss (mL): 0 Clinical Note:: 76-year-old female with longstanding history of dislocation of right total hip arthroplasty quite unstable she has been dislocated for over 2 weeks presents to the office closed reduction plan for today Operative findings:: Very unstable total hip arthroplasty right side Operative note:: Patient identified preoperatively right hip marked yes and my initials. Taken back to the operating room placed supine on the radiolucent bed. General anesthesia administered. X-rays brought in to identify the right hip joint which revealed dislocation right total hip arthroplasty. Final operative timeout performed to identify proper patient procedure and extremity everyone involved in case agreed no counter indications to beginning. Traction and internal and external rotation of the hip resulted in palpable clunk of the hip and reduction of the hip that was confirmed on C arm. Abduction pillow placed. Total hip arthroplasty components hip was taken through range of motion 45 degrees mild internal and external rotation and hip stayed reduced. However is markedly unstable Condition: stable Disposition: PACU Complications:: None apparent
--- NOTE | 2022-01-16 12:31 | XR_ITS ---
FINAL REPORT CLINICAL HISTORY: REDUCTION OF HIP IN SURGERY COMPARISON: 01/14/2022 FINDINGS: RIGHT HIP A single, fluoroscopic spot image was obtained demonstrating interval reduction of previously seen right hip dislocation. No fracture is identified. 0.1 minutes of fluoroscopy time is reported. IMPRESSION: Interval reduction of right hip dislocation. Reviewed, Interpreted and Dictated by Hunter Devi III, MD Transcribed by Cassy Joseph Authenticated and [facility]
--- NOTE | 2022-01-16 12:35 | EXP.ANES.CKL ---
[facility] PFS Medical History (Updated 01/16/22 @ 11:14 by Layla Mccain RN) Allergies Gallbladder disease Hx of dislocation of hip Hx of gastric ulcer Osteoarthritis Surgical History (Updated 01/16/22 @ 11:14 by Layla Mccain RN) History of cholecystectomy Family History (Updated 01/16/22 @ 11:14 by Layla Mccain RN) Other Family history of diabetes mellitus type II Social History (Updated 01/16/22 @ 11:16 by Layla Mccain RN) Smoking Status: Never smoker second hand exposure: No alcohol intake: never substance use type: denies use current occupational status: retired Travel in the last 8 weeks: None household members: spouse housing: house lives independently: Yes marital status: current occupational exposures/hazards: No caffeine: Yes special parish needs: Yes agree to transfusion: Yes do you feel safe at home: Yes victim of physical abuse: No victim of emotional abuse: No victim of sexual abuse: No would you like helpful sources: No [facility] Anesthesia Checklist Patient Identification Patient Identification: Arm Band and Verbal (Name & ) Structural Data Admitted From: Home Planned Operative Procedure/s: Right Hip Closed Reduction Consent for Planned Operative Procedure(s) Verified: Yes Verified Documents: Surgical Consent NPO Status Verified Time NPO: 00:00 Additional verifications Anesthesia Reactions: No Hx Blood Transfusions: No Blood Transfusion Reaction: No Airway Assessment C-Spine Mobility Assessed: Yes TMJ Mobility Assessed: Yes Dentition: Good Dentition Neurological Assessment Level of Consciousness: Awake, Alert and Appropriate Anesthesia Plan Anesthesia Risk discussed: Yes ASA Class: II Anesthesia Type: General
== END 2022-01-16 14:00 | disposition home or self-care (01) ==
PROVIDERS: PCP Emergency Medicine; Visit Provider Orthopaedic Surgery
PROC: (CPT 27266; principal; 2022-01-16 13:00)
DX: T84.020A Dislocation of internal right hip prosthesis, initial encounter (principal); I10 Essential (primary) hypertension; Z87.891 Personal history of nicotine dependence; Z79.899 Other long term (current) drug therapy
CPT/HCPCS: 27266; 73502; 76000

== ENCOUNTER 2022-05-21 18:06 | Observation (INO) | payer MEDICARE, OTHER, SELFPAY ==
[2022-05-21] VITALS (12 sets, daily range): BP systolic 98–139; BP diastolic 52–78; PULSE 83–108; RESP 14–18; TEMP 36.5–36.6; O2SAT 97–99; BMI 16.0
--- NOTE | 2022-05-21 18:16 | HMH.EDGENADL ---
Discharge Plan Disposition Patient Disposition: Admitted As Inpatient Prescriptions Prescriptions: No Action clonazepam [Klonopin] 0.5 mg tablet 0.5 mg PO TID Qty: 90 1RF gabapentin 800 mg tablet 800 mg PO QID Qty: 120 1RF oxycodone 10 mg tablet 10 mg PO QID Qty: 120 0RF tizanidine 4 mg tablet See Rx Instructions .ROUTE .COMPLEX Qty: 60 2RF Dose Instruction: TAKE ONE TABLET BY MOUTH TWICE DAILY Rx Instructions: TAKE ONE TABLET BY MOUTH TWICE DAILY amlodipine 10 mg tablet See Rx Instructions .ROUTE .COMPLEX Qty: 30 1RF Dose Instruction: TAKE ONE TABLET BY MOUTH DAILY Rx Instructions: TAKE ONE TABLET BY MOUTH DAILY escitalopram oxalate [Lexapro] 10 mg tablet 10 mg PO DAILY Qty: 30 0RF pantoprazole 40 mg tablet,delayed release (DR/EC) See Rx Instructions .ROUTE .COMPLEX Qty: 90 0RF Dose Instruction: TAKE ONE TABLET BY MOUTH DAILY Rx Instructions: TAKE ONE TABLET BY MOUTH DAILY lisinopril 30 mg tablet See Rx Instructions .ROUTE .COMPLEX Qty: 60 1RF Dose Instruction: TAKE ONE TABLET BY MOUTH TWICE DAILY Rx Instructions: TAKE ONE TABLET BY MOUTH TWICE DAILY quetiapine 25 mg tablet See Rx Instructions .ROUTE .COMPLEX Qty: 30 2RF Dose Instruction: TAKE ONE TABLET BY MOUTH DAILY Rx Instructions: TAKE ONE TABLET BY MOUTH DAILY Referrals Follow up/Referrals: Kedar Velarde MD [Primary Care Provider] - See instructions Clinical Impressions Clinical Impression: Dislocation of hip prosthesis Instructions Patient Instructions: DI for Moderate Sedation Discharge ED Provider: Andrew Ba General Adult HPI General Chief complaint: Extremity Injury, Lower Stated complaint: RT hip pain Time Seen by Provider: 05/21/22 18:16 History of Present Illness HPI narrative: Patient is a 77-year-old female who presents today with right hip pain states that she had a injury in 2001 where she required her femoral leonardo and subsequently a later point had injury to her femoral head and femoral neck which required an arthroplasty and she has had numerous spontaneous dislocations since that time. Of note she was seen last year by Dr. Juan beltran at [facility] at which point she had a prolonged dislocation she been lost to follow-up and was unclear why she had such a delayed presentation but they took her to the operating room for closed reduction of that hip. Patient states that she is also seeing Dr. Joseph beltran at [place]. She states that yesterday she had a spontaneous pop which is over 24 hours from this time. Unclear as to why she delayed her presentation come to the emergency department today but has significant pain and deformity of that right hip. She denies to me any significant other past medical history leading up to this. Is in severe pain. Related Data Previous Rx's Medication Instructions Recorded tizanidine 4 mg tablet See Rx Instructions .Route 03/18/22 .COMPLEX #60 tabs amlodipine 10 mg tablet See Rx Instructions .Route 04/09/22 .COMPLEX #30 tabs escitalopram oxalate 10 mg tablet 10 mg PO DAILY #30 tabs 04/15/22 (Lexapro) clonazepam 0.5 mg tablet (Klonopin) 0.5 mg PO TID Depression #90 tabs 05/19/22 gabapentin 800 mg tablet 800 mg PO QID Pain #120 tabs 05/19/22 oxycodone 10 mg tablet 10 mg PO QID #120 tabs 05/19/22 lisinopril 30 mg tablet See Rx Instructions .Route 05/21/22 .COMPLEX #60 tabs pantoprazole 40 mg tablet,delayed See Rx Instructions .Route 05/21/22 release .COMPLEX #90 tabs quetiapine 25 mg tablet See Rx Instructions .Route 05/21/22 .COMPLEX #30 tabs Allergies Allergy/AdvReac Type Severity Reaction Status Date / Time hydroxyzine [From Vistaril] Allergy Severe Hives Verified 05/19/22 10:07 morphine Allergy Verified 05/19/22 10:07 Ketorolac Allergy Unknown Uncoded 05/19/22 10:07 [facility] Disclaimer: The information contained in this section may have been up
--- NOTE | 2022-05-21 18:18 | XR_ITS ---
PROCEDURE INFORMATION: Exam: XR Right Hip Exam date and time: 05/21/2022 6:24 PM Age: 77 years old Clinical indication: Other: Disloaction; Additional info: Dislocation TECHNIQUE: Imaging protocol: Radiologic exam of the right hip. Views: 2 or 3 views hip with pelvis when performed. COMPARISON: SD XR HIP RT 2-3V W/PELVIS 01/16/2022 12:30 PM FINDINGS: Bones/joints: There is dislocation of a bipolar right hip prosthesis with superior displacement of the femoral component in relation to the acetabular cup. Hardware is intact. There is no acute periprosthetic fracture. There is a chronic ununited fracture of the greater trochanter unchanged. There is a bipolar left hip prosthesis partially visualized that appears in satisfactory position with stable heterotopic calcification of the left hip joint. Soft tissues: Unremarkable. IMPRESSION: Dislocated bipolar right hip prosthesis.
--- NOTE | 2022-05-21 18:18 | PC.NURSE ---
Warm blanket provided. MD at bedside.
--- NOTE | 2022-05-21 18:29 | PC.NURSE ---
pt going to ct
--- NOTE | 2022-05-21 18:39 | PC.NURSE ---
Return from XR
--- NOTE | 2022-05-21 18:59 | PC.NURSE ---
pt resting no complaints at this time, visitor at bedside
--- NOTE | 2022-05-21 19:18 | PC.NURSE ---
paging orthopedic surgeon psychologist personnel which is to consult on pt
--- NOTE | 2022-05-21 20:49 | PC.NURSE ---
Patient admitted to 209 S/p hip dislocation to service of Dr. Sheldon
--- NOTE | 2022-05-21 20:51 | XR_ITS ---
PROCEDURE INFORMATION: Exam: XR Right Hip Exam date and time: 05/21/2022 8:50 PM Age: 77 years old Clinical indication: Screening exam; Post reduction ap view right hip done portable. Prior surgery; Surgery date: 6+ months; Surgery type: Total right hip arthroplasty. Patient states her hip has popped out at least 7 times. TECHNIQUE: Imaging protocol: Radiologic exam of the right hip. Views: 2 or 3 views hip with pelvis when performed. COMPARISON: CR XR HIP RT 2-3V W/PELVIS 05/21/2022 6:24 PM FINDINGS: Bones/joints: Interval reduction of right hip dislocation. Soft tissues: Unremarkable. IMPRESSION: Interval reduction of right hip dislocation.
[2022-05-21 21:04] LABS: Coronavirus 19, PCR Not Detected (NotDetected); Influenza A, PCR Not Detected (NotDetected); Influenza B, PCR Not Detected (NotDetected)
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
--- NOTE | 2022-05-21 21:52 | PC.NURSE ---
Pt arrived to floor via stretcher @ [id number]
[2022-05-21 23:21] LABS: Basophils # 0.1 K/mm3 (0-0.2); Basophils % 2.6 % (0.1-2.0); Eosinophils # 0.2 K/mm3 (0.0-0.4); Eosinophils % 4.9 % (0.1-12.0); Hematocrit 34.2 % (37.0-47.0); Hemoglobin 10.3 g/dL (12.2-16.2); Lymphocytes # 1.6 K/mm3 (0.7-4.5); Lymphocytes % 35.8 % (10-50); Mean Corpuscular HGB Conc 30.1 g/dL (31.8-35.4); Mean Corpuscular Hemoglobin 31.9 pg (27.0-31.2); Mean Corpuscular Volume 105.9 fl (81-99); Monocytes # 0.4 K/mm3 (0.1-1.0); Monocytes % 8.7 % (1.7-9.3); Neutrophils # 2.1 K/mm3 (1.8-7.8); Neutrophils % 47.9 % (37.0-80.0); Platelet Count 228 K/mm3 (142-424); Red Blood Count 3.23 M/mm3 (4.20-5.40); Red Cell Distribution Width 15.9 % (11.5-17.5); White Blood Count 4.3 K/mm3 (4.8-10.8)
[2022-05-21 23:28] LABS: Chloride 116 mmol/L (98-107); Potassium 4.6 mmoL/L (3.5-5.1); Sodium 139 mmol/L (136-145)
[2022-05-21 23:31] LABS: Alanine Aminotransferase 11 U/L (12-78); Albumin Level 2.8 g/dl (3.5-5.0); Albumin/Globulin Ratio 0.8 (1.1-1.8); Alkaline Phosphatase 81 U/L (38-126); Anion Gap 4.6 mEq/L (5-15); Aspartate Amino Transferase 28 U/L (14-36); Bilirubin,Total 0.7 mg/dl (0.2-1.3); Blood Urea Nitrogen 21 mg/dl (7-17); Carbon Dioxide 23 mmol/L (22.0-30.0); Creatinine Clearance Estimated 28 mL/min (50-200); Estimated Glomerular Filt Rate 44 ml/min (>60); GFR (African American) 53 ML/MIN (>60); Globulin 3.3 g/dL (1.3-3.2); Total Protein,Serum 6.1 g/dl (6.3-8.2)
[2022-05-21 23:32] LABS: Calcium 7.6 mg/dl (8.4-10.2); Glucose 100 mg/dl (74-100)
--- NOTE | 2022-05-21 23:43 | PC.NURSE ---
medication list obtained from outside pharmacy source and last office visit, pt was unable to name all of medications she was taking at home, pt appears to be slightly impaired still from narcotics given in ER for closed hip reduction, pt states she had a daughter that from overdose 3 weeks ago and does not want narcotics at this time, pt prefers tylenol or motrin, pt is currently taking oxycodone qid at home. left leg does appear shorter than right with slight inward rotation, pt is able to move rle without difficulty and noted pt bending leg at knee while lying in bed, +pedal pulses noted bilaterally. pt does complain of pain in rle mainly in knee area rated 8/10 but tolerable at this time.
[2022-05-22 04:00] VITALS: BP 104/61; PULSE 90; RESP 18; TEMP 36.9; O2SAT 96; BMI 16.0
--- NOTE | 2022-05-22 04:50 | PC.NURSE ---
pt medicated x1 for pain, pt complains of right hip/knee pain, pt remains on bedrest and incontinent of bowel and bladder, no acute distress, vss, no other issues or concerns at this time, bed alarm in place. pt is alert and oriented x4, pt stated loss of her daughter in march 2022 to overdose.
--- NOTE | 2022-05-22 06:43 | HMH.PHAINT1 ---
Pharmacy Intervention Comments: MEDICATION RECONCILIATION COMPLETED ON PATIENT USING EXTERNAL FILL HISTORY FROM PHARMACY. -KHALIDA ECHEVERRIA, STEVED
[2022-05-22 08:00] VITALS: BP 106/56; PULSE 83; RESP 20; TEMP 36.5; O2SAT 98
[2022-05-22 09:09] LABS: Vitamin B12 283 pg/mL (239-931)
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
--- NOTE | 2022-05-22 10:00 | SW/DCPLANNER ---
This patient is currently established with [facility]. I will fax patient information/order to resume services at time of discharge. PT has stated that patient is safe to return home with home health services.
[2022-05-22 10:44] VITALS: BMI 16.0
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
--- NOTE | 2022-05-26 11:41 | CARE MANAGER ---
Attempted to call patient to discuss recent discharge. Unable to reach patient and she did not return VM.
== END 2022-05-22 15:22 | disposition home health service (06) ==
LOC: ER 20:54 → 2ND 21:16
PROVIDERS: Nurse Practitioner Family; Admitting Provider Internal Medicine Adolescent Medicine; Emergency Provider Student in an Organized Health Care Education/Training Program; PCP Emergency Medicine; Visit Provider Internal Medicine Adolescent Medicine
DX: T84.020A Dislocation of internal right hip prosthesis, initial encounter (principal); M24.451 Recurrent dislocation, right hip; E43 Unspecified severe protein-calorie malnutrition; Z68.1 Body mass index [BMI] 19.9 or less, adult; I10 Essential (primary) hypertension; F41.9 Anxiety disorder, unspecified; F32.A Depression, unspecified; F17.210 Nicotine dependence, cigarettes, uncomplicated; Z79.899 Other long term (current) drug therapy; Y79.2 Prosthetic and other implants, materials and accessory orthopedic devices associated with adverse incidents
CPT/HCPCS: 27266; G0378; 36415; 73502; 80053; 82607; 85025; 99152; 99285; C9803; J2405; U0003; U0005

== ENCOUNTER 2022-07-14 12:18 | Emergency (ER) | payer MEDICARE, MEDICAID, SELFPAY ==
[2022-07-14] VITALS (9 sets, daily range): BP systolic 109–125; BP diastolic 52–70; PULSE 70–108; RESP 18; TEMP 36.6–36.8; O2SAT 92–96; BMI 18.8
--- NOTE | 2022-07-14 13:14 | XR_ITS ---
FINAL REPORT CLINICAL HISTORY: rt hip pain, no fall, hx of surgery nov 2021 per patient COMPARISON: May 21, 2022 FINDINGS: 2 views of the right hip with an AP pelvis were obtained. There has been interval revision of right hip arthroplasty. There are ossifications along the lateral aspect and adjacent to the proximal femur. There are chronic right superior and inferior pubic rami fractures. There has been left hip arthroplasty. There are degenerative changes of the lower lumbar spine. There appear to be subacute fractures of the proximal femur on the lateral view. IMPRESSION: Interval revision of right hip arthroplasty. Apparent subacute fractures of the proximal femur on the lateral view. Reviewed, Interpreted and Dictated by Hunter Devi III, MD Transcribed by Atilio Wu Authenticated and [facility]
--- NOTE | 2022-07-14 13:22 | PC.NURSE ---
PT TO XR
--- NOTE | 2022-07-14 13:40 | PC.NURSE ---
ED MD AT BEDSIDE
--- NOTE | 2022-07-14 14:31 | PC.NURSE ---
PC to Dr. Velarde message given to Ifrah for him to return call
--- NOTE | 2022-07-14 14:34 | PC.NURSE ---
ED doctor on phone with Dr. Velarde
--- NOTE | 2022-07-14 15:06 | XR_ITS ---
FINAL REPORT CLINICAL HISTORY: PAIN RT HIP PLEASE COMPARE TO IMAGES THAT WERE DONE IN APR 2022 WITH PLATE BEFORE IT WAS REMOVED PER ER DOCTOR COMPARISON: October 2021 and April 2022 FINDINGS: Multiple views of the right femur were obtained. There has been revision of the right hip arthroplasty. There is ossification lateral to the hip. There has been interval removal of the screw plate and multiple screws. There are lateral soft tissue calcifications. There is irregularity of the distal femoral metaphysis favored to be chronic. There is a nondisplaced fracture of the distal femoral metaphysis. There has been knee arthroplasty. There are presumed subacute fractures of the proximal femur. IMPRESSION: Nondisplaced fracture of the distal femoral metaphysis. Interval right hip arthroplasty revision and removal of screw plate and multiple screws. Presumed subacute fractures of the proximal femur. Reviewed, Interpreted and Dictated by Hunter Devi III, MD Transcribed by Atilio Wu Authenticated and [facility]
--- NOTE | 2022-07-14 15:19 | PC.NURSE ---
XR AT BEDSIDE
--- NOTE | 2022-07-14 15:23 | HMH.EDEXTP ---
Discharge Plan Disposition Patient Disposition: Xfer Other Chief Complaint: Extremity Problem,Nontraumatic Prescriptions Prescriptions: No Action levofloxacin 500 mg tablet 500 mg PO DAILY Eliquis 5 mg tablet 5 mg PO BID furosemide [Lasix] 20 mg tablet 20 mg PO DAILY Qty: 10 0RF tramadol 50 mg tablet 50 mg PO Q8H Qty: 30 0RF clonazepam [Klonopin] 0.5 mg tablet 0.5 mg PO TID Qty: 90 1RF gabapentin 800 mg tablet 800 mg PO QID Qty: 120 1RF tizanidine 4 mg tablet See Rx Instructions .ROUTE .COMPLEX Qty: 60 2RF Dose Instruction: TAKE ONE TABLET BY MOUTH TWICE DAILY Rx Instructions: TAKE ONE TABLET BY MOUTH TWICE DAILY quetiapine 25 mg tablet 25 mg PO DAILY pantoprazole 40 mg tablet,delayed release (DR/EC) 40 mg PO DAILY lisinopril 30 mg tablet 30 mg PO BID escitalopram oxalate [Lexapro] 10 mg tablet 10 mg PO DAILY oxycodone 10 mg tablet 10 mg PO QID Referrals Follow up/Referrals: Kedar Velarde MD [Primary Care Provider] - See instructions Clinical Impressions Clinical Impression: Fracture of distal end of femur Stand Alone Forms Stand Alone Forms: Transfer Record - ED Discharge ED Provider: Irina Waldron Extremity Problem HPI General Chief complaint: Extremity Problem,Nontraumatic Stated complaint: Leg inflammation Post OP hip about a month ago Time Seen by Provider: 07/14/22 13:31 Mode of Arrival: Wheelchair Source of Information: Patient Limitations: No Limitations Description of Symptoms (Recalled from ER Triage Doc. by RN): PT REPORTS RIGHT HIP PAIN AND WEAKNESS FOR 3/4 DAYS History of Present Illness HPI Narrative: Patient is a 77-year-old female who is here today for right hip pain. Patient comes in and out of her hospital with hip pain all the time. She has had a hip replacement in 2000. Then she had a revision done recently at again in the past 2 years according to her . Patient's having pain that is worse so she brought herself in for her hip pain. She is on oxycodone and she is on Neurontin at home. There is no trauma or fall according to her and patient. Patient uses a wheelchair all the time. Patient also is complaining of a lot of swelling in the bilateral lower leg this has been going on for the past week and patient went to see the primary care doctor 2 days ago but did not stick around to get blood work done. MD Complaint: extremity pain Onset (ago): day(s) Consistency: constant Location: right Severity scale (1-10): 10 Quality: aching and constant Radiation: distal Relieving factors: nothing Exacerbating factors: weight bearing, exertion and palpation Associated symptoms: denies other symptoms Related Data Home Medications Medication Instructions Recorded Confirmed escitalopram oxalate 10 mg tablet 10 mg PO DAILY anxiety 05/21/22 07/08/22 (Lexapro) lisinopril 30 mg tablet 30 mg PO BID Hypertension 05/21/22 07/08/22 oxycodone 10 mg tablet 10 mg PO QID Pain 05/21/22 07/08/22 pantoprazole 40 mg tablet,delayed 40 mg PO DAILY GERD 05/21/22 07/08/22 release quetiapine 25 mg tablet 25 mg PO DAILY MOOD 05/21/22 07/08/22 apixaban 5 mg tablet (Eliquis) 5 mg PO BID 07/08/22 07/08/22 levofloxacin 500 mg tablet 500 mg PO DAILY 07/08/22 07/08/22 Previous Rx's Medication Instructions Recorded clonazepam 0.5 mg tablet (Klonopin) 0.5 mg PO TID Depression #90 tabs 05/19/22 gabapentin 800 mg tablet 800 mg PO QID Pain #120 tabs 05/19/22 tizanidine 4 mg tablet See Rx Instructions .Route 06/04/22 .COMPLEX #60 tabs furosemide 20 mg tablet (Lasix) 20 mg PO DAILY #10 tabs 07/08/22 tramadol 50 mg tablet 50 mg PO Q8H breakthrough pain #30 07/08/22 tabs Allergies Allergy/AdvReac Type Severity Reaction Status Date / Time hydroxyzine [From Vistaril] Allergy Severe Hives Verified 07/08/22 10:03 ketorolac Allergy Unknown Verified 07/08/22 10:03 allergy reaction
--- NOTE | 2022-07-14 15:36 | PC.NURSE ---
message left for medical records at requesting Ortho doctor that did her surgery, also fax sent also requesting same information
[2022-07-14 16:15] LABS: Hemoglobin 9.7 g/dL (12.2-16.2); Mean Corpuscular HGB Conc 32.3 g/dL (31.8-35.4); Mean Corpuscular Hemoglobin 29.8 pg (27.0-31.2); Mean Corpuscular Volume 92.4 fl (81-99); Platelet Count 242 K/mm3 (142-424); Red Blood Count 3.25 M/mm3 (4.20-5.40); Red Cell Distribution Width 16.1 % (11.5-17.5); White Blood Count 7.1 K/mm3 (4.8-10.8)
[2022-07-14 16:16] LABS: Basophils % 0.4 % (0.1-2.0); Eosinophils # 0.1 K/mm3 (0.0-0.4); Eosinophils % 1.3 % (0.1-12.0); Lymphocytes % 13.4 % (10-50); Mean Platelet Volume 8.2 fl (7.4-10.4); Monocytes # 0.4 K/mm3 (0.1-1.0); Monocytes % 5.4 % (1.7-9.3); Neutrophils # 5.6 K/mm3 (1.8-7.8); Neutrophils % 79.5 % (37.0-80.0)
[2022-07-14 16:18] LABS: Chloride 106 mmol/L (98-107); Potassium 3.7 mmoL/L (3.5-5.1); Sodium 139 mmol/L (136-145)
[2022-07-14 16:20] LABS: Blood Urea Nitrogen 22 mg/dl (7-17); Creatinine Clearance Estimated 27 mL/min (50-200); Estimated Glomerular Filt Rate 37 ml/min (>60); GFR (African American) 44 ML/MIN (>60)
[2022-07-14 16:21] LABS: Alanine Aminotransferase 14 U/L (12-78); Albumin/Globulin Ratio 0.9 (1.1-1.8); Alkaline Phosphatase 161 U/L (38-126); Anion Gap 10.7 mEq/L (5-15); Aspartate Amino Transferase 19 U/L (14-36); Bilirubin,Total 0.4 mg/dl (0.2-1.3); Calcium 7.9 mg/dl (8.4-10.2); Carbon Dioxide 26 mmol/L (22.0-30.0); Globulin 3.3 g/dL (1.3-3.2); Glucose 98 mg/dl (74-100); Total Protein,Serum 6.3 g/dl (6.3-8.2)
--- NOTE | 2022-07-14 16:22 | PC.NURSE ---
On phone with [facility], per ED doctor request, ED doctor on phone with radiologist re: image reading
[2022-07-14 16:32] LABS: NT Pro Brain Natriuretic Pep. 3740 pg/mL (0-450)
--- NOTE | 2022-07-14 16:42 | PC.NURSE ---
Called [facility] for an ortho consult; images power-shared. waiting for [facility] to call back
[2022-07-14 16:58] LABS: Procalcitonin 0.195 ng/mL (0.0-2.0)
[2022-07-14 17:07] LABS: C-Reactive Protein 115.5 mg/L (0-4)
--- NOTE | 2022-07-14 17:07 | PC.NURSE ---
CHELA GRAHAM speaking with [facility] orthopaedic at this time
--- NOTE | 2022-07-14 17:29 | PC.NURSE ---
DR MANTILLA SPEAKING WITH PT AND
--- NOTE | 2022-07-14 17:43 | PC.NURSE ---
Called radiology to have imaging disc burned
[2022-07-14 18:07] LABS: Erythrocyte Sedimentation Rate 108 mm/hr (0-30)
--- NOTE | 2022-07-14 18:28 | PC.NURSE ---
REPORT GIVEN TO EMS FOR TRANSFER
--- NOTE | 2022-07-14 18:37 | PC.NURSE ---
pt voided per bedpan at this time
--- NOTE | 2022-07-14 18:45 | PC.NURSE ---
placed a knee immobilizer on pts right hip/knee. no complications. pt tolerated well
== END 2022-07-14 19:00 | disposition other institution (70) ==
PROVIDERS: Emergency Provider Emergency Medicine; PCP Emergency Medicine
DX: S72.414A Nondisplaced unspecified condyle fracture of lower end of right femur, initial encounter for closed fracture (principal); F17.210 Nicotine dependence, cigarettes, uncomplicated; X58.XXXA Exposure to other specified factors, initial encounter
CPT/HCPCS: 73502; 73552; 80053; 83880; 84145; 85025; 85651; 86140; 96372; 96374; 96375; 99285; J2405

== ENCOUNTER 2022-09-23 12:49 | Observation (INO) | payer MEDICARE, MEDICAID, SELFPAY ==
[2022-09-23] VITALS (11 sets, daily range): BP systolic 117–164; BP diastolic 53–87; PULSE 78–115; RESP 17–20; TEMP 36.6–36.8; O2SAT 95–98; BMI 33.5
--- NOTE | 2022-09-23 | XR_ITS ---
FINAL REPORT CLINICAL HISTORY: Right femur pain COMPARISON: Earlier same day FINDINGS: Two views of the right femur were obtained. There is a fracture of the distal femoral metaphysis. There is posterior displacement of the distal fracture fragment. The joint spaces are well preserved. Prepatellar soft tissue swelling is noted. IMPRESSION: Fracture of the distal femoral metaphysis with posterior displacement of the distal fracture fragment. Reviewed, Interpreted and Dictated by Hunter Devi III, MD Transcribed by Mary Kate Viramontes Authenticated and . [facility]
[2022-09-23 13:12] LABS: Microscopic, Urine URINE MICROSCOPIC (MICROSCOPIC)
[2022-09-23 13:12] LABS: Coronavirus 19, PCR Not Detected (NotDetected); Influenza A, PCR Not Detected (NotDetected); Influenza B, PCR Not Detected (NotDetected)
--- NOTE | 2022-09-23 13:17 | XR_ITS ---
FINAL REPORT CLINICAL HISTORY: right hip pain COMPARISON: 07/14/2022 FINDINGS: RIGHT HIP Two views of the right hip demonstrate postoperative changes from bilateral hip arthroplasties. Chronic calcifications at the lateral aspect of the right hip. Subacute appearing fractures of the right superior and inferior pubic rami. The visualized bony structures are well aligned. No soft tissue abnormality is seen. IMPRESSION: Subacute fractures right superior and inferior pubic rami. Postoperative and degenerative changes. Reviewed, Interpreted and Dictated by Hunter Devi III, MD Transcribed by Mary Kate Viramontes Authenticated and . [facility]
--- NOTE | 2022-09-23 13:17 | XR_ITS ---
FINAL REPORT CLINICAL HISTORY: Right lower extremity pain COMPARISON: 07/14/2022 FINDINGS: 1 view of the right femur was obtained. There is a mildly displaced acute fracture of the distal femoral metaphysis. There are postoperative changes from knee arthroplasty and in the femur. There is no acute soft tissue abnormality. IMPRESSION: Acute fracture distal femoral metaphysis. Reviewed, Interpreted and Dictated by Hunter Devi III, MD Transcribed by Mary Kate Viramontes Authenticated and . [facility]
--- NOTE | 2022-09-23 13:18 | HMH.EDGENADL ---
Discharge Plan Disposition Patient Disposition: Admitted Chief Complaint: PAIN Prescriptions Prescriptions: No Action levofloxacin 500 mg tablet 500 mg PO DAILY Eliquis 5 mg tablet 5 mg PO BID furosemide [Lasix] 20 mg tablet 20 mg PO DAILY Qty: 10 0RF tramadol 50 mg tablet 50 mg PO Q8H Qty: 30 0RF clonazepam [Klonopin] 0.5 mg tablet 0.5 mg PO TID Qty: 90 1RF gabapentin 800 mg tablet 800 mg PO QID Qty: 120 1RF oxycodone 10 mg tablet 10 mg PO QID Qty: 120 0RF amlodipine 10 mg tablet 10 mg PO DAILY Label Comments: TAKE ONE TABLET BY MOUTH DAILY tizanidine 4 mg tablet See Rx Instructions .ROUTE .COMPLEX Qty: 60 2RF Dose Instruction: TAKE ONE TABLET BY MOUTH TWICE DAILY Rx Instructions: TAKE ONE TABLET BY MOUTH TWICE DAILY quetiapine 25 mg tablet See Rx Instructions .ROUTE .COMPLEX Qty: 30 2RF Dose Instruction: TAKE ONE TABLET BY MOUTH DAILY Rx Instructions: TAKE ONE TABLET BY MOUTH DAILY lisinopril 30 mg tablet See Rx Instructions .ROUTE .COMPLEX Qty: 60 1RF Dose Instruction: TAKE ONE TABLET BY MOUTH TWICE DAILY Rx Instructions: TAKE ONE TABLET BY MOUTH TWICE DAILY pantoprazole 40 mg tablet,delayed release (DR/EC) 40 mg PO DAILY escitalopram oxalate [Lexapro] 10 mg tablet 10 mg PO DAILY Referrals Follow up/Referrals: Kedar Velarde MD [Primary Care Provider] - See instructions Clinical Impressions Clinical Impression: Decubitus ulcer of sacral region, stage 3, Femur fracture, right, Adult failure to thrive Discharge ED Provider: Andrew Ba General Adult HPI General Chief complaint: PAIN Stated complaint: Phys ref, sores on bottom Time Seen by Provider: 09/23/22 13:11 Mode of Arrival: Wheelchair Source of Information: Patient Limitations: No Limitations Description of Symptoms (Recalled from ER Triage Doc. by RN): pt to ed c/o right hip and leg pain. pt denies any falls. pt states she was here yesterday for the same complaint and denied admission. History of Present Illness HPI narrative: Patient is a 77-year-old female who presents today with right hip pain states that she had a injury in 2001 where she required her femoral leonardo and subsequently a later point had injury to her femoral head and femoral neck which required an arthroplasty and she has had numerous spontaneous dislocations since that time.? Of note she was seen last year by Dr. Martinez here at [facility] at which point she had a prolonged dislocation she been lost to follow-up and was unclear why she had such a delayed presentation but they took her to the operating room for closed reduction of that hip.? Patient states that she is also seeing Dr. Ruiz here at [place].? I saw this patient several months ago and she had a prosthetic hip dislocation we will get her reduced and she was admitted here. She subsequently had another downstream visit where she had a femur fracture and was transferred [facility]. Patient states today that she did not have any new or different dislocation episodes or injuries she is just in severe pain. She states its been months since she has been able to walk normally. We have been told that she was at Dr. Velarde's office yesterday for medication refills but is unclear as to whether or not she was having the same symptoms with her right lower extremity. She states that her pain is from her right hip down to her right knee. Related Data Home Medications Medication Instructions Recorded Confirmed escitalopram oxalate 10 mg tablet 10 mg PO DAILY anxiety 05/21/22 09/22/22 (Lexapro) pantoprazole 40 mg tablet,delayed 40 mg PO DAILY GERD 05/21/22 09/22/22 release apixaban 5 mg tablet (Eliquis) 5 mg PO BID 07/08/22 09/22/22 levofloxacin 500 mg tablet 500 mg PO DAILY 07/08/22 09/22/22 amlodipine 10 mg tablet 10 mg PO DAILY 09/22/22 09/22/22 Previous Rx's Medication Instructi
[2022-09-23 13:19] LABS: Appearance,Urine SL CLOUDY (Clear); Bilirubin,Urine Negative (Negative); Blood, Urine 1+ (Negative); Color,Urine YELLOW (Yellow); Glucose,Urine (UA) Negative (Negative); Ketones,Urine Negative (Negative); Leukocyte Esterase,Urine 2+ (Negative); Nitrate,Urine Negative (Negative); Protein,Urine TRACE (Negative); Specific Gravity, Urine 1.015 (1.005-1.030); Urobilinogen,Urine 0.2 EU/dl (0.2)
[2022-09-23 13:39] LABS: RBC,Urine Occasional #/hpf (0-3); Squamous Epithelial Cell,Urine Occasional #/hpf (0-5); WBC,Urine 50-100 #/hpf (0-3)
[2022-09-23 13:40] LABS: Bacteria,Urine 2+ /lpf
--- NOTE | 2022-09-23 14:03 | PC.NURSE ---
CHARGE NURSE AT BS
--- NOTE | 2022-09-23 15:20 | PC.NURSE ---
PAGED DR ZULETA TO SPEAK WITH
[2022-09-23 15:21] LABS: Basophils % 0.3 % (0.1-2.0); Eosinophils % 0.5 % (0.1-12.0); Hemoglobin 8.6 g/dL (12.2-16.2); Lymphocytes # 1.1 K/mm3 (0.7-4.5); Lymphocytes % 12.1 % (10-50); Mean Corpuscular HGB Conc 29.6 g/dL (31.8-35.4); Mean Corpuscular Hemoglobin 29.2 pg (27.0-31.2); Mean Corpuscular Volume 98.5 fl (81-99); Mean Platelet Volume 8.4 fl (7.4-10.4); Monocytes # 0.6 K/mm3 (0.1-1.0); Monocytes % 6.7 % (1.7-9.3); Neutrophils # 7.2 K/mm3 (1.8-7.8); Neutrophils % 80.4 % (37.0-80.0); Platelet Count 400 K/mm3 (142-424); Red Blood Count 2.95 M/mm3 (4.20-5.40); White Blood Count 8.9 K/mm3 (4.8-10.8)
[2022-09-23 15:27] LABS: Alanine Aminotransferase 23 U/L (12-78); Albumin Level 2.7 g/dl (3.5-5.0); Albumin/Globulin Ratio 0.7 (1.1-1.8); Alkaline Phosphatase 183 U/L (38-126); Anion Gap 12.3 mEq/L (5-15); Aspartate Amino Transferase 28 U/L (14-36); Bilirubin,Total 0.2 mg/dl (0.2-1.3); Blood Urea Nitrogen 21 mg/dl (7-17); Calcium 8.2 mg/dl (8.4-10.2); Carbon Dioxide 23 mmol/L (22.0-30.0); Chloride 109 mmol/L (98-107); Creatinine Clearance Estimated 74 mL/min (50-200); Estimated Glomerular Filt Rate 61 ml/min (>60); GFR (African American) 74 ML/MIN (>60); Globulin 3.8 g/dL (1.3-3.2); Glucose 142 mg/dl (74-100); Potassium 4.3 mmoL/L (3.5-5.1); Sodium 140 mmol/L (136-145); Total Protein,Serum 6.5 g/dl (6.3-8.2)
[2022-09-23 15:28] LABS: Activated Partial Thrombo Time 34.9 seconds (22.8-30.6); INR 1.03 (0.9-1.1); Prothrombin Time 11.1 seconds (10.1-12.5)
--- NOTE | 2022-09-23 15:31 | PC.NURSE ---
Spoke with Aggie in Care Management regarding pt admission
--- NOTE | 2022-09-23 15:50 | PC.NURSE ---
Notified ED charge of room assignment, 207. Registration notified of Admission
--- NOTE | 2022-09-23 16:21 | PC.NURSE ---
report called to isaura de la torre
--- NOTE | 2022-09-23 16:35 | PC.NURSE ---
arrived to floor by stretcher from ED
--- NOTE | 2022-09-23 16:48 | PC.NURSE ---
Dr. Kurtz at bedside, pt refused to have sacral wound cleaned up by , said she wasn't doing anything tonight
--- NOTE | 2022-09-23 17:01 | EXP.SURG.CON ---
History of Present Illness *Admission Date: 09/23/22 *Reason for visit:: Sacral decubitus ulceration *History of present illness: This is a 77-year-old female with multiple comorbid medical conditions seen in consultation from her primary service for evaluation regarding a sacral decubitus ulceration. [facility] Disclaimer: The information contained in this section may have been updated after the patient was seen, as this information can be updated by other users. Medical History Allergies Gallbladder disease Hx of dislocation of hip Hx of gastric ulcer Osteoarthritis Surgical History History of cholecystectomy History of hip surgery Family History Other Family history of diabetes mellitus type II Social History Smoking Status: Never smoker second hand exposure: No alcohol intake: never substance use type: denies use current occupational status: retired Travel in the last 8 weeks: None household members: spouse housing: house lives independently: Yes marital status: current occupational exposures/hazards: No caffeine: Yes special parish needs: Yes agree to transfusion: Yes do you feel safe at home: Yes victim of physical abuse: No victim of emotional abuse: No victim of sexual abuse: No would you like helpful sources: No Meds Home Medications and Allergies Home Medications Medication Instructions Recorded Confirmed Type escitalopram oxalate 10 mg tablet 10 mg PO DAILY anxiety 05/21/22 09/22/22 History (Lexapro) pantoprazole 40 mg tablet,delayed 40 mg PO DAILY GERD 05/21/22 09/23/22 History release apixaban 5 mg tablet (Eliquis) 5 mg PO BID Blood thinner 07/08/22 09/23/22 History furosemide 20 mg tablet (Lasix) 20 mg PO DAILY #10 tabs 07/08/22 09/22/22 Rx clonazepam 0.5 mg tablet (Klonopin) 0.5 mg PO TID Depression #90 tabs 09/15/22 09/23/22 Rx gabapentin 800 mg tablet 800 mg PO QID Pain #120 tabs 09/15/22 09/23/22 Rx oxycodone 10 mg tablet 10 mg PO QID Pain #120 tabs 09/15/22 09/23/22 Rx amlodipine 10 mg tablet 10 mg PO DAILY High blood pressure 09/22/22 09/23/22 History esomeprazole magnesium 40 mg 40 mg PO DAILY Reflux/Acid reflux 09/23/22 09/23/22 History granules delayed release for susp lisinopril 30 mg tablet 30 mg PO BID High blood pressure 09/23/22 09/23/22 History metoprolol tartrate 25 mg tablet 25 mg PO DAILY High blood pressure 09/23/22 09/23/22 History mirtazapine 15 mg tablet 15 mg PO DAILY Depression 09/23/22 09/23/22 History quetiapine 25 mg tablet 25 mg PO DAILY Depression 09/23/22 09/23/22 History tizanidine 4 mg tablet 4 mg PO BID muscle spasms 09/23/22 09/23/22 History New Prescriptions to Start Prescriptions: Allergies Allergy/AdvReac Type Severity Reaction Status Date / Time hydroxyzine [From Vistaril] Allergy Severe Hives Verified 09/22/22 10:23 ketorolac Allergy Unknown Verified 09/22/22 10:23 allergy reaction morphine Allergy Unknown Verified 09/22/22 10:23 allergy reaction Exam (Inpt) Vital signs and Labs for Last 24 Hours: Temp Pulse Resp BP Pulse Ox 97.8 F 86 20 118/53 L 97 09/23/22 16:37 09/23/22 16:37 09/23/22 16:37 09/23/22 16:37 09/23/22 16:30 Laboratory Results - last 24 hr 09/23/22 13:01: SARS-CoV-2 (PCR) Not detected, Influenza A Untype (PCR) Not detected, Influenza Type B (PCR) Not detected 09/23/22 13:04: Urine Color Yellow, Urine Appearance Sl cloudy, Urine pH 6.0, Ur Specific [place] 1.015, Urine Protein Trace, Urine Glucose (UA) Negative, Urine Ketones Negative, Urine Blood 1+, Urine Nitrate Negative, Urine Bilirubin Negative, Urine Urobilinogen 0.2, Ur Leukocyte Esterase 2+ A, Urine RBC Occasional, Urine WBC 50-100, Ur Squamous Epith Cells Occasional, Urine B
--- NOTE | 2022-09-23 17:06 | PC.NURSE ---
spoke with granddaughter Brenna Zarate, verbal consent given for photographs to be taken of sacral wound, also stated it was ok to contact her for other needs, as pt's is elderly and [place]
--- NOTE | 2022-09-23 19:37 | EXP.HP ---
History of Present Illness *Admission Date: 09/23/22 *Reason for visit:: Debility, leg pain, decubitus ulcer *History of present illness: Ms. Vann is a 77-year-old female with chronic pain, recurring right hip dislocation, recurring admissions to the hospital with recent prolonged course complicated by pneumonia and ICU stay on ventilator. She presented to the hospital today because of worsening pain in her right leg. Was seen by her PCP yesterday who expressed concern for decubitus ulcer on her sacral region. Her chronic pain and fracture of her right femur limit her mobility. She spends most of her day either lying or in a chair. On arrival to the ER pain is her most prominent complaint. Denies fever, chest pain, nausea, vomiting. Given appearance of sacral wound, ER consulted medicine for admission and further management of wound. After arriving to the floor, patient is at baseline mentation. Complaining of pain in her right leg. Denies any fevers. It is painful for her to roll. Spends most of her time laying on her left side. Prominent decub appreciated just left of midline in sacral region. [facility] Disclaimer: The information contained in this section may have been updated after the patient was seen, as this information can be updated by other users. Medical History Allergies Gallbladder disease Hx of dislocation of hip Hx of gastric ulcer Osteoarthritis Surgical History History of cholecystectomy History of hip surgery Family History Family history of diabetes mellitus type II Social History Smoking Status: Never smoker second hand exposure: No alcohol intake: never substance use type: denies use current occupational status: retired Travel in the last 8 weeks: None household members: spouse housing: house lives independently: Yes marital status: current occupational exposures/hazards: No caffeine: Yes special parish needs: Yes agree to transfusion: Yes do you feel safe at home: Yes victim of physical abuse: No victim of emotional abuse: No victim of sexual abuse: No would you like helpful sources: No Meds Home Medications and Allergies Home Medications Medication Instructions Recorded Confirmed Type escitalopram oxalate 10 mg tablet 10 mg PO DAILY anxiety 05/21/22 09/22/22 History (Lexapro) pantoprazole 40 mg tablet,delayed 40 mg PO DAILY GERD 05/21/22 09/23/22 History release apixaban 5 mg tablet (Eliquis) 5 mg PO BID Blood thinner 07/08/22 09/23/22 History furosemide 20 mg tablet (Lasix) 20 mg PO DAILY #10 tabs 07/08/22 09/22/22 Rx clonazepam 0.5 mg tablet (Klonopin) 0.5 mg PO TID Depression #90 tabs 09/15/22 09/23/22 Rx gabapentin 800 mg tablet 800 mg PO QID Pain #120 tabs 09/15/22 09/23/22 Rx oxycodone 10 mg tablet 10 mg PO QID Pain #120 tabs 09/15/22 09/23/22 Rx amlodipine 10 mg tablet 10 mg PO DAILY High blood pressure 09/22/22 09/23/22 History esomeprazole magnesium 40 mg 40 mg PO DAILY Reflux/Acid reflux 09/23/22 09/23/22 History granules delayed release for susp lisinopril 30 mg tablet 30 mg PO BID High blood pressure 09/23/22 09/23/22 History metoprolol tartrate 25 mg tablet 25 mg PO DAILY High blood pressure 09/23/22 09/23/22 History mirtazapine 15 mg tablet 15 mg PO DAILY Depression 09/23/22 09/23/22 History quetiapine 25 mg tablet 25 mg PO DAILY Depression 09/23/22 09/23/22 History tizanidine 4 mg tablet 4 mg PO BID muscle spasms 09/23/22 09/23/22 History New Prescriptions to Start Prescriptions: Allergies Allergy/AdvReac Type Severity Reaction Status Date / Time hydroxyzine [From Vistaril] Allergy Severe Hives Verified 09/22/22 10:23 ketorolac Allergy Unknown Verified 09/22/22 10:23 allergy reaction morphine Allerg
--- NOTE | 2022-09-23 20:39 | PC.NURSE ---
pure wic in place. pepe care done, gown changed. used a wedge to turn pt to left side. pillow between legs to help stabilize the right femur and pillow under heels to float them. consent signed for debridement of sacral ulcer 09/24/22.
--- NOTE | 2022-09-23 23:03 | PC.NURSE ---
pt turned with wedge and right leg stabilized with pillow. c/o of pain r/t right femur, tx per MAR
--- NOTE | 2022-09-23 23:10 | PC.NURSE ---
edema noted in bilateral LE. some discoloration around right ankle, pulse 2+, removed sock from right foot r/t edema
[2022-09-24] VITALS (16 sets, daily range): BP systolic 84–116; BP diastolic 40–62; PULSE 75–86; RESP 16–18; TEMP 36.2–36.7; O2SAT 16–96; BMI 20.2
--- NOTE | 2022-09-24 03:49 | ECG_ITS ---
APPROVED REPORT Exam: Resting ECG HR:79 bpm ECG Measurements Heart Rate 79 AXES AR 171 P 53 QRSd 88 QRS 86 QT 339 T 72 QTc 374 Conclusion SINUS RHYTHM NORMAL ECG UNCONFIRMED REPORT Electronically signed by : Tru Thornton MD 09/24/2022 22:21:49
--- NOTE | 2022-09-24 06:53 | P.PN_ITS ---
Subjective Narrative: Currently resting Exam Data for Last 24 hours Vital signs and Labs for Last 24 Hours: Temp Pulse Resp BP Pulse Ox 98.2 F 78 17 98/44 L 96 09/23/22 20:00 09/23/22 20:00 09/23/22 20:00 09/24/22 03:48 09/23/22 20:00 Laboratory Results - last 24 hr 09/23/22 13:01: SARS-CoV-2 (PCR) Not detected, Influenza A Untype (PCR) Not detected, Influenza Type B (PCR) Not detected 09/23/22 13:04: Urine Color Yellow, Urine Appearance Sl cloudy, Urine pH 6.0, Ur Specific [place] 1.015, Urine Protein Trace, Urine Glucose (UA) Negative, Urine Ketones Negative, Urine Blood 1+, Urine Nitrate Negative, Urine Bilirubin Negative, Urine Urobilinogen 0.2, Ur Leukocyte Esterase 2+ A, Urine RBC Occasional, Urine WBC 50-100, Ur Squamous Epith Cells Occasional, Urine Bacteria 2+ 09/23/22 14:13: WBC 8.9, RBC 2.95 L, Hgb 8.6 L, Hct 29.0 L, MCV 98.5, MCH 29.2, MCHC 29.6 L, RDW 19.0 H, Plt Count 400, MPV 8.4, Neut % (Auto) 80.4 H, Lymph % (Auto) 12.1, [place] % (Auto) 6.7, Eos % (Auto) 0.5, Baso % (Auto) 0.3, Neut # (Auto) 7.2, Lymph # (Auto) 1.1, [place] # (Auto) 0.6, Eos # (Auto) 0.0, Baso # (Auto) 0.0, PT 11.1, INR 1.03, APTT 34.9 H, Sodium 140, Potassium 4.3, Chloride 109 H, Carbon Dioxide 23, Anion Gap 12.3, BUN 21 H, Creatinine 0.90, Estimated Creat Clear 74, Estimated GFR 61, Est GFR ( Amer) 74, Glucose 142 H, Calcium 8.2 L, Total Bilirubin 0.2, AST 28, ALT 23, Alkaline Phosphatase 183 H, Total Protein 6.5, Albumin 2.7 L, Globulin 3.8 H, Albumin/Globulin Ratio 0.7 L I & O for Last 24 hours: Intake & Output 09/21/22 09/22/22 09/23/22 09/24/22 11:59 11:59 11:59 11:59 Intake Total 140 / 140 Balance 140 / 140 Weight 116 lb 7 oz Constitutional Constitutional: no acute distress *Routine Respiratory Exam Respiratory: Absent respiratory distress *Routine Cardiovascular Exam Cardiovascular: Absent tachycardia Progress Note: A&P Assessment and plan (1) Decubitus ulcer of sacral region, stage 3: Status: Acute Assessment and plan: Plan debridement later today
--- NOTE | 2022-09-24 07:06 | PC.NURSE ---
attempted to contact inder quinonez per number listed in summary, no answer. left voicemail to call back please
--- NOTE | 2022-09-24 07:16 | PC.NURSE ---
pt down to surgery 705
[2022-09-24 07:30] LABS: Chloride 112 mmol/L (98-107); Potassium 4.3 mmoL/L (3.5-5.1); Sodium 138 mmol/L (136-145)
[2022-09-24 07:33] LABS: Alanine Aminotransferase 24 U/L (12-78); Albumin/Globulin Ratio 0.6 (1.1-1.8); Alkaline Phosphatase 120 U/L (38-126); Anion Gap 9.3 mEq/L (5-15); Aspartate Amino Transferase 21 U/L (14-36); Blood Urea Nitrogen 22 mg/dl (7-17); Calcium 7.7 mg/dl (8.4-10.2); Carbon Dioxide 21 mmol/L (22.0-30.0); Creatinine Clearance Estimated 41 mL/min (50-200); Estimated Glomerular Filt Rate 61 ml/min (>60); GFR (African American) 74 ML/MIN (>60); Globulin 3.1 g/dL (1.3-3.2); Glucose 79 mg/dl (74-100); Total Protein,Serum 5.1 g/dl (6.3-8.2)
[2022-09-24 07:34] LABS: Bilirubin,Total < 0.1 mg/dl (0.2-1.3); Magnesium 1.5 mg/dl (1.6-2.3)
[2022-09-24 07:46] LABS: Basophils % 0.4 % (0.1-2.0); Eosinophils % 0.6 % (0.1-12.0); Hematocrit 21.5 % (37.0-47.0); Lymphocytes # 1.2 K/mm3 (0.7-4.5); Lymphocytes % 25.7 % (10-50); Mean Corpuscular HGB Conc 30.3 g/dL (31.8-35.4); Mean Corpuscular Hemoglobin 29.3 pg (27.0-31.2); Mean Corpuscular Volume 96.5 fl (81-99); Mean Platelet Volume 8.4 fl (7.4-10.4); Monocytes # 0.4 K/mm3 (0.1-1.0); Monocytes % 8.5 % (1.7-9.3); Neutrophils # 3.2 K/mm3 (1.8-7.8); Neutrophils % 64.8 % (37.0-80.0); Platelet Count 307 K/mm3 (142-424); Red Blood Count 2.23 M/mm3 (4.20-5.40); Red Cell Distribution Width 18.9 % (11.5-17.5); White Blood Count 4.9 K/mm3 (4.8-10.8)
--- NOTE | 2022-09-24 07:46 | HMH.PHAINT1 ---
Pharmacy Intervention Comments: home medication list verified using list from outpatient pharmacy
--- NOTE | 2022-09-24 07:47 | P.PN_ITS ---
[facility] Disclaimer: The information contained in this section may have been updated after the patient was seen, as this information can be updated by other users. Medical History Allergies Gallbladder disease Hx of dislocation of hip Hx of gastric ulcer Osteoarthritis Surgical History History of cholecystectomy History of hip surgery Family History Family history of diabetes mellitus type II Social History Smoking Status: Never smoker second hand exposure: No alcohol intake: never substance use type: denies use current occupational status: retired Travel in the last 8 weeks: None household members: spouse housing: house lives independently: Yes marital status: current occupational exposures/hazards: No caffeine: Yes special parish needs: Yes agree to transfusion: Yes do you feel safe at home: Yes victim of physical abuse: No victim of emotional abuse: No victim of sexual abuse: No would you like helpful sources: No [facility] Anesthesia Checklist Structural Data Planned Operative Procedure/s: Decubitus ulcer debridement Consent for Planned Operative Procedure(s) Verified: Yes NPO Status Verified Time NPO: 00:00 Additional verifications Anesthesia Reactions: No Hx Blood Transfusions: No Blood Transfusion Reaction: No
--- NOTE | 2022-09-24 07:53 | PC.NURSE ---
lab called with critical hgb 6.5. notified md, he wants a repeat hgb to confirm. called pre-op for lab draw.
[2022-09-24 07:54] LABS: Hemoglobin 6.6 g/dL (12.2-16.2)
[2022-09-24 08:17] LABS: Hematocrit 21.7 % (37.0-47.0)
[2022-09-24 08:18] LABS: Hemoglobin 6.4 g/dL (12.2-16.2)
--- NOTE | 2022-09-24 08:54 | DIET.NUTRFU ---
RD consulted secondary to malnutrition. Patient was here in 04/2022 and seen by this RD. At that time she had lost 30# due to lack of appetite. Her weight at that time was 43kg, since then has started on remeron and gained wt, now at 53kg. She was admit d/t uncontrolled pain and L sacral wound stage 3. Uriel score 11-high risk. Her mobility has been very limited secondary to pain. She is NPO today with plans to have debridement of wound. Once diet is initiated start ensure with apoorva, hugo 1-2 daily and prostat AWC. Labs reviewed, albumin at 2.0L. Will continue to follow
--- NOTE | 2022-09-24 09:28 | P.OP_ITS ---
Date of procedure: 09/24/22 Pre-op Diagnosis:: Sacral decubitus ulceration with necrotic eschar Post-op Diagnosis:: Same Procedure performed:: Debridement and necrotic eschar from sacral decubitus ulceration Surgeon:: Sky Kurtz MD [employer] REPAIRER:: Fab Roa Anesthesia: LMA Estimated blood loss (mL): 5 Operative findings:: Eschar debrided through subcutaneous tissue to sacral margin Operative note:: After informed consent was obtained the patient was taken to the operating room and maintained in the supine position on her hospital bed. General anesthesia with laryngeal mask airway was achieved. She was then transferred to the left lateral decubitus position. Her sacral region was prepped and draped in a sterile fashion. The necrotic eschar was debrided with electrocautery. The debridement did approach the margin of the sacrum centrally, but was otherwise within/throughout the subcutaneous tissue. Once all necrotic tissue was excised, electrocautery was utilized to achieve hemostasis. Dressings were ap plied and the patient was transferred to recovery in stable condition. Condition: stable Disposition: PACU Specimens:: None for pathologic evaluation Complications:: No immediate
--- NOTE | 2022-09-24 11:20 | SW/DCPLANNER ---
Addendum entered by Marva Duncan 09/28/22 08:00: Vernon Camilo w/ [facility] home health services will resume today for this patient. Addendum entered by Marva Duncan 09/28/22 07:13: Patient information/order has been faxed to [facility] to resume home health services. Addendum entered by Marva Duncan 09/25/22 08:42: I spoke with patient regarding discharge plans this AM. PT/OT evaluated patient yesterday and recommended SNF level of care. Patient stated that she resides at home with her and plans to return back home at time of discharge. Patient stated that her takes care of her and other family members check on her often. Patient has all DME needed at home. Patient is agreeable to resume home health services w/ [facility] once medically stable for discharge. I will continue to follow up with patient, MD and resume home health once medically stable for discharge. Original Note: Patient is currently established with [facility]. I will continue to follow up with patient/home health during patient's stay. Discharge date is unknown at this time.
--- NOTE | 2022-09-24 12:07 | EXP.ACUTE.PN ---
Subjective *Date: 09/24/22 *Time: 12:07 Interval history: Patient taken for debridement of sacral decubitus wound today. Remains afebrile. Still having issues with pain control. Stable on room air. Afebrile. White cell remains normal. Worsening anemia today, no active signs of bleeding Medical Exam Vital signs and Labs for Last 24 Hours: Vital Signs Temp Pulse Pulse Resp BP BP Pulse Ox 09/24/22 11:35 97.3 F L 84 16 107/41 L 92 L 09/24/22 11:20 97.3 F L 84 16 103/50 L 94 L 09/24/22 11:05 97.4 F L 86 16 97/57 L 93 L 09/24/22 10:50 97.4 F L 75 16 95/54 L 94 L 09/24/22 09:45 84 18 87/41 L 92 L 09/24/22 10:05 82 16 96/41 L 95 09/24/22 09:55 83 16 91/40 L 95 09/24/22 09:35 97.1 F L 84 18 91/40 L 92 L 09/24/22 03:48 98/44 L 09/23/22 20:00 98.2 F 78 17 130/77 96 09/23/22 16:00 97.8 F 90 18 118/53 L 96 09/23/22 16:30 86 118/53 L 97 09/23/22 16:37 97.8 F 86 20 118/53 L 09/23/22 15:30 88 126/61 95 09/23/22 15:00 94 H 117/57 L 95 09/23/22 14:30 90 140/82 98 09/23/22 14:20 89 137/65 98 09/23/22 14:18 88 132/66 98 09/23/22 13:30 88 138/61 98 09/23/22 13:07 97.8 F 115 H 20 164/87 H 98 Intake and Output 09/23/22 09/24/22 09/24/22 23:59 07:59 15:59 Intake Total 140 / 140 Balance 140 / 140 Intake: Intake, Oral Amount 120 / 120 Intake, Other Amount 20 / 20 Other: Intake, Other Source Saline Solution Number of Unmeasured Voids 1 Weight 52.815 kg 53.796 kg 53.79 kg Patient Weight 09/24/22 23:59 Weight 53.79 kg Laboratory Results - last 24 hr 09/23/22 13:01: SARS-CoV-2 (PCR) Not detected, Influenza A Untype (PCR) Not detected, Influenza Type B (PCR) Not detected 09/23/22 13:04: Urine Color Yellow, Urine Appearance Sl cloudy, Urine pH 6.0, Ur Specific [place] 1.015, Urine Protein Trace, Urine Glucose (UA) Negative, Urine Ketones Negative, Urine Blood 1+, Urine Nitrate Negative, Urine Bilirubin Negative, Urine Urobilinogen 0.2, Ur Leukocyte Esterase 2+ A, Urine RBC Occasional, Urine WBC 50-100, Ur Squamous Epith Cells Occasional, Urine Bacteria 2+ 09/23/22 14:13: WBC 8.9, RBC 2.95 L, Hgb 8.6 L, Hct 29.0 L, MCV 98.5, MCH 29.2, MCHC 29.6 L, RDW 19.0 H, Plt Count 400, MPV 8.4, Neut % (Auto) 80.4 H, Lymph % (Auto) 12.1, [place] % (Auto) 6.7, Eos % (Auto) 0.5, Baso % (Auto) 0.3, Neut # (Auto) 7.2, Lymph # (Auto) 1.1, [place] # (Auto) 0.6, Eos # (Auto) 0.0, Baso # (Auto) 0.0, PT 11.1, INR 1.03, APTT 34.9 H, Sodium 140, Potassium 4.3, Chloride 109 H, Carbon Dioxide 23, Anion Gap 12.3, BUN 21 H, Creatinine 0.90, Estimated Creat Clear 74, Estimated GFR 61, Est GFR ( Amer) 74, Glucose 142 H, Calcium 8.2 L, Total Bilirubin 0.2, AST 28, ALT 23, Alkaline Phosphatase 183 H, Total Protein 6.5, Albumin 2.7 L, Globulin 3.8 H, Albumin/Globulin Ratio 0.7 L 09/24/22 06:55: WBC 4.9 D, RBC 2.23 L, Hgb 6.6 L* D, Hct 21.5 L, MCV 96.5, MCH 29.3, MCHC 30.3 L, RDW 18.9 H, Plt Count 307, MPV 8.4, Neut % (Auto) 64.8, Lymph % (Auto) 25.7, [place] % (Auto) 8.5, Eos % (Auto) 0.6, Baso % (Auto) 0.4, Neut # (Auto) 3.2, Lymph # (Auto) 1.2, [place] # (Auto) 0.4, Eos # (Auto) 0.0, Baso # (Auto) 0.0, Sodium 138, Potassium 4.3, Chloride 112 H, Carbon Dioxide 21 L, Anion Gap 9.3, BUN 22 H, Creatinine 0.90, Estimated Creat Clear 41, Estimated GFR 61, Est GFR ( Amer) 74, Glucose 79 D, Calcium 7.7 L, Magnesium 1.5 L, Total Bilirubin < 0.1 L, AST 21, ALT 24, Alkaline Phosphatase 120, Total Protein 5.1 L, Albumin 2.0 L D, Globulin 3.1, Albumin/Globulin Ratio 0.6 L, Crossmatch (AHG) See Detail 09/24/22 08:05: Hgb 6.4 L*, Hct 21.7 L I & O for Labs for Last 24 Hours: Intake & Output 09/21/22 09/22/22 09/23/22 09/24/22 23:59 23:59 23:59 23:59 Intake Total 140 / 140 Balance 140 / 140 Weight 52.815 kg 53.79 kg Constitutional: Present no acute distress, thin, cachectic and chronically ill appear
--- NOTE | 2022-09-24 12:10 | PC.NURSE ---
pts b/p soft, pt requesting pain meds. per md okay to give home dose pain meds
--- NOTE | 2022-09-24 12:11 | PC.NURSE ---
manual b/p 98/40. pt n[place], unable to rate pain on scale of 0-10. pt grimacing and moaning stating she is hurting bad .
--- NOTE | 2022-09-24 16:07 | HMH.OTEV ---
OT Inpatient Evaluation Rehab OT IP Evaluation Start: 09/24/22 07:31 Freq: ONCE Status: Active Protocol: Document 09/24/22 15:58 KARMEN (Rec: 09/24/22 16:06 KARMEN [id number]) Rehab OT IP Assessment Subjective History Ms. Vann is a 77-year-old female with chronic pain, recurring right hip dislocation, recurring admissions to the hospital with recent prolonged course complicated by pneumonia and ICU stay on ventilator. She presented to the hospital today because of worsening pain in her right leg. Was seen by her PCP yesterday who expressed concern for decubitus ulcer on her sacral region. Her chronic pain and fracture of her right femur limit her mobility. She spends most of her day either lying or in a chair. On arrival to the ER pain is her most prominent complaint. Denies fever, chest pain, nausea, vomiting. Given appearance of sacral wound, ER consulted medicine for admission and further management of wound. After arriving to the floor, patient is at baseline mentation. Complaining of pain in her right leg. Denies any fevers. It is painful for her to roll. Spends most of her time laying on her left side. Prominent decub appreciated just left of midline in sacral region. S/p Debridement and necrotic eschar from sacral decubitus ulceration on 09/24/22. Subjective I'm hurting. Patient lives with who provides ADL and IADL care for her as needed. Patient is non ambulator. Patient refused to sit @ EOB 2* pain. Patient required Max A fo
--- NOTE | 2022-09-24 16:46 | PC.NURSE ---
called lab for update on pts blood, lab stated it might be 9/10pm before blood arrives.
[2022-09-25] VITALS (26 sets, daily range): BP systolic 92–135; BP diastolic 37–69; PULSE 72–103; RESP 16–20; TEMP 36.6–37.1; O2SAT 92–96; BMI 20.2
[2022-09-25 06:58] LABS: Basophils % 0.2 % (0.1-2.0); Eosinophils # 0.1 K/mm3 (0.0-0.4); Eosinophils % 1.3 % (0.1-12.0); Hematocrit 21.1 % (37.0-47.0); Lymphocytes # 1.2 K/mm3 (0.7-4.5); Lymphocytes % 23.2 % (10-50); Mean Corpuscular HGB Conc 30.4 g/dL (31.8-35.4); Mean Corpuscular Hemoglobin 28.5 pg (27.0-31.2); Mean Corpuscular Volume 93.8 fl (81-99); Monocytes # 0.4 K/mm3 (0.1-1.0); Monocytes % 7.8 % (1.7-9.3); Neutrophils # 3.5 K/mm3 (1.8-7.8); Neutrophils % 67.5 % (37.0-80.0); Platelet Count 302 K/mm3 (142-424); Red Blood Count 2.24 M/mm3 (4.20-5.40); Red Cell Distribution Width 18.7 % (11.5-17.5); White Blood Count 5.1 K/mm3 (4.8-10.8)
[2022-09-25 07:01] LABS: Hemoglobin 6.4 g/dL (12.2-16.2)
[2022-09-25 07:10] LABS: Chloride 112 mmol/L (98-107)
[2022-09-25 07:11] LABS: Potassium 4.8 mmoL/L (3.5-5.1); Sodium 138 mmol/L (136-145)
[2022-09-25 07:13] LABS: Alanine Aminotransferase 12 U/L (12-78); Anion Gap 8.8 mEq/L (5-15); Aspartate Amino Transferase 19 U/L (14-36); Blood Urea Nitrogen 25 mg/dl (7-17); Carbon Dioxide 22 mmol/L (22.0-30.0); Creatinine Clearance Estimated 41 mL/min (50-200); Estimated Glomerular Filt Rate 54 ml/min (>60); GFR (African American) 65 ML/MIN (>60)
[2022-09-25 07:14] LABS: Albumin/Globulin Ratio 0.6 (1.1-1.8); Alkaline Phosphatase 124 U/L (38-126); Bilirubin,Total < 0.1 mg/dl (0.2-1.3); Calcium 7.7 mg/dl (8.4-10.2); Globulin 3.2 g/dL (1.3-3.2); Glucose 83 mg/dl (74-100); Magnesium 1.6 mg/dl (1.6-2.3); Phosphorous 3.4 mg/dl (2.5-4.5); Total Protein,Serum 5.2 g/dl (6.3-8.2)
[2022-09-25 07:19] LABS: C-Reactive Protein 106.8 mg/L (0-4)
--- NOTE | 2022-09-25 08:48 | HMH.PTEV ---
Physical Therapy Evaluation Rehab PT IP Evaluation Start: 09/24/22 07:31 Freq: ONCE Status: Active Protocol: Document 09/24/22 15:00 PHOKAVIN (Rec: 09/24/22 16:33 PHORNE [id number]) Subjective/History History History 77 yowf adm to [facility] with increased R LE pain. Hx of chronic pain, recurring right hip dislocation, recurring admissions to the hospital with recent prolonged course complicated by pneumonia and ICU stay on ventilator. She also presented with sacral decubitus ulcer upon admission and is now S/P surgical debridement of this wound. She reports she is non-ambulatory at baseline, she does sit in a w/c at times for mobility, her performs all ADLs for her. Subjective Subjective Pt c/o 9/10 pain in the R LE this pm. She did not rate in pain in her sacral region at this time post debridement. Pt adamantly refused to attempt sitting at EOB at this time. Rehab PT IP Eval Objective Appearance Patient Behavior Appropriate Patient Orientation Person,Place,Time Difficulty following instructions none Speech Pattern Clear Ambulation Patient Able to Ambulate No Balance Ability to Arise Unable Transfers Bed Transfer Ability Maximum x 2 (75% assist) Chair Transfer Ability Total/Dependent (100%) Rehab PT IP prob,goals,plan Problems Date of Evaluation: 09/24/22 PT IP Problems Bed Mobility,Transfers Rehab Potential Rehab Potential Fair Plan PT Intervention Plan Bed Mobility,Transfers, Therapeutic Exercise PT Plan Frequency Daily Duration LOS Discharge Goals Bed Transfer Ability Maximum x 1 (75% assist) Discharge Plan PT Discharge Plan Pt is currently most appropriate for SNF placement once medically stable for D/C. G -code Required No Eval Complexity Eval Charge Codes 33303 - High Complexity PHYSICIAN CERTIFICATION: I certify the specified therapy services for Linsey Vann are required, au
--- NOTE | 2022-09-25 08:48 | EXP.SURG.PN ---
Subjective Narrative: The patient is resting and states that she feels a little better . Exam Data for Last 24 hours Vital signs and Labs for Last 24 Hours: Temp Pulse Resp BP Pulse Ox 97.8 F 101 H 16 114/49 L 95 09/25/22 07:36 09/25/22 07:36 09/25/22 07:36 09/25/22 07:36 09/25/22 07:36 Laboratory Results - last 24 hr 09/24/22 06:55: Blood Type O Negative, Antibody Screen Positive, Antibody Identification Anti-Pedro B 09/24/22 06:55: Antibody Identification Anti-Fya 09/24/22 06:55: Antibody Identification Anti-V, Crossmatch (AHG) See Detail 09/24/22 10:54: Blood Type Confirm O Negative 09/25/22 06:47: WBC 5.1, RBC 2.24 L, Hgb 6.4 L*, Hct 21.1 L, MCV 93.8, MCH 28.5, MCHC 30.4 L, RDW 18.7 H, Plt Count 302, MPV 8.0, Neut % (Auto) 67.5, Lymph % (Auto) 23.2, [place] % (Auto) 7.8, Eos % (Auto) 1.3, Baso % (Auto) 0.2, Neut # (Auto) 3.5, Lymph # (Auto) 1.2, [place] # (Auto) 0.4, Eos # (Auto) 0.1, Baso # (Auto) 0.0, Sodium 138, Potassium 4.8, Chloride 112 H, Carbon Dioxide 22, Anion Gap 8.8, BUN 25 H, Creatinine 1.00, Estimated Creat Clear 41, Estimated GFR 54 L, Est GFR ( Amer) 65, Glucose 83, Calcium 7.7 L, Phosphorus 3.4, Magnesium 1.6, Total Bilirubin < 0.1 L, AST 19, ALT 12 D, Alkaline Phosphatase 124, C-Reactive Protein 106.8 H, Total Protein 5.2 L, Albumin 2.0 L, Globulin 3.2, Albumin/Globulin Ratio 0.6 L I & O for Last 24 hours: Intake & Output 09/22/22 09/23/22 09/24/22 09/25/22 11:59 11:59 11:59 11:59 Intake Total 140 / 140 1190 / 1190 Output Total 1001 / 1001 Balance 140 / 140 189 / 189 Weight 118 lb 9.386 oz 118 lb 3.2 oz Microbiology Reports for the Last 24 Hours: Microbiology 09/23/22 13:04 Urine,Catheterized Urine Culture - Preliminary Constitutional Constitutional: no acute distress *Routine Respiratory Exam Respiratory: Absent respiratory distress *Routine Cardiovascular Exam Cardiovascular: Present tachycardia (Mildly) *Routine Skin Exam Comments: Defer evaluation to coincide with dressing changes Progress Note: A&P Assessment and plan (1) Decubitus ulcer of sacral region, stage 3: Problem details: Borderline stage IV secondary to sacral margin encroachment Status: Acute Assessment and plan: Continue dressing changes Continue management as per primary service (2) Anemia: Status: Acute Assessment and plan: Significant, yet stable, anemia noted during this hospitalization. Further evaluation and management as per primary service. No urgent need (as of yet) for source identification/control during this hospitalization; however, outpatient evaluation reasonable. (3) Protein-calorie malnutrition, severe: Status: Acute
--- NOTE | 2022-09-25 09:03 | PC.NURSE ---
COURTESY TECH NOTE; ROUNDED ON PT 0750, ADJUSTED PT HAFSA SYKES BROUGHT AT PT REQUEST, PT DENIED NEED TO REPOSITION IN BED. CALL LIGHT WITHIN REACH, NO FURTHER REQUESTS AT THIS TIME LEA MUÑOZ
--- NOTE | 2022-09-25 09:53 | DIET.NUTRFU ---
Saw patient this AM, somewhat lethargic. She did report she ate breakfast and drank her shake. Nursing noted 50% at all meals so far. She also requested some cheese/crackers and Gatorade upon visit, kitchen notified. Based on low BMI, lack of mobility and skin breakdown she triggers for severe PCM, provider aware
--- NOTE | 2022-09-25 13:30 | EXP.ACUTE.PN ---
Subjective *Date: 09/25/22 *Time: 14:24 Interval history: Tolerating current pain regimen. We will ask for more pain meds however then falls asleep and appears quite comfortable. No active bleeding from wound. Hemoglobin still stable however below threshold for transfusion. Has not received transfusion yet due to rare complex antibodies. Transfusion beginning this morning. No nausea or vomiting. No chest pain or shortness of breath. Medical Exam Vital signs and Labs for Last 24 Hours: Vital Signs Temp Pulse Pulse Resp BP BP Pulse Ox 09/25/22 12:00 98.1 F 72 16 107/48 L 93 L 09/25/22 11:40 98.7 F 75 16 106/52 L 95 09/25/22 10:40 98.1 F 77 16 106/50 L 95 09/25/22 10:25 98.3 F 77 16 99/51 L 93 L 09/25/22 10:10 98.6 F 75 16 103/51 L 95 09/25/22 09:55 98 F 77 16 104/51 L 94 L 09/25/22 09:50 98.3 F 77 16 101/37 L 95 09/25/22 09:45 98.1 F 76 16 101/42 L 94 L 09/25/22 09:40 98 F 77 16 93/45 L 94 L 09/25/22 09:30 97.8 F 94 H 16 126/53 L 93 L 09/25/22 07:36 97.8 F 101 H 16 114/49 L 95 09/25/22 04:00 98.1 F 89 16 101/50 L 92 L 09/25/22 00:00 98.2 F 78 17 92/69 L 94 L 09/24/22 20:00 98.1 F 79 16 84/62 L 96 09/24/22 15:54 97.4 F L 81 18 108/60 L 95 09/24/22 14:35 97.6 F 84 16 116/58 L 95 09/24/22 13:35 97.5 F L 86 16 95/44 L 96 Intake and Output 09/24/22 09/25/22 09/25/22 23:59 07:59 15:59 Intake Total 480 / 860 470 / 895 425 / 895 Output Total 1001 / 1101 100 / 1101 Balance 480 / 860 -531 / -206 325 / -206 Intake: Intake, Oral Amount 480 / 840 270 / 390 120 / 390 Intake, Total IV Amount 200 / 200 Cefepime HCl 2 gm In 0.9 % 100 / 100 Sodium Chloride 100 ml @ 200 mls/hr IV Q12H [facility] Rx#:[id number] Metronidaz/Sod Chl 500 mg In 100 / 100 100 ml @ 100 mls/hr IV Q8H [facility] Rx#:[id number] Intake (Blood Product) Amt 305 / 305 Red Blood Cells Unit 305 / 305 [id number] Output: Output, Urine Amount 1001 / 1101 100 / 1101 Other: Number of Unmeasured Voids 0 0 Weight 53.615 kg Patient Weight 09/25/22 23:59 Weight 53.615 kg Laboratory Results - last 24 hr 09/24/22 06:55: Blood Type O Negative, Antibody Screen Positive, Antibody Identification Anti-Pedro B 09/24/22 06:55: Antibody Identification Anti-Fya 09/24/22 06:55: Antibody Identification Anti-V, Crossmatch (AHG) See Detail 09/25/22 06:47: WBC 5.1, RBC 2.24 L, Hgb 6.4 L*, Hct 21.1 L, MCV 93.8, MCH 28.5, MCHC 30.4 L, RDW 18.7 H, Plt Count 302, MPV 8.0, Neut % (Auto) 67.5, Lymph % (Auto) 23.2, [place] % (Auto) 7.8, Eos % (Auto) 1.3, Baso % (Auto) 0.2, Neut # (Auto) 3.5, Lymph # (Auto) 1.2, [place] # (Auto) 0.4, Eos # (Auto) 0.1, Baso # (Auto) 0.0, Sodium 138, Potassium 4.8, Chloride 112 H, Carbon Dioxide 22, Anion Gap 8.8, BUN 25 H, Creatinine 1.00, Estimated Creat Clear 41, Estimated GFR 54 L, Est GFR ( Amer) 65, Glucose 83, Calcium 7.7 L, Phosphorus 3.4, Magnesium 1.6, Total Bilirubin < 0.1 L, AST 19, ALT 12 D, Alkaline Phosphatase 124, C-Reactive Protein 106.8 H, Total Protein 5.2 L, Albumin 2.0 L, Globulin 3.2, Albumin/Globulin Ratio 0.6 L I & O for Labs for Last 24 Hours: Intake & Output 09/22/22 09/23/22 09/24/22 09/25/22 23:59 23:59 23:59 23:59 Intake Total 860 / 860 895 / 895 Output Total 1101 / 1101 Balance 860 / 860 -206 / -206 Weight 52.815 kg 53.79 kg 53.615 kg Microbiology Reports for the Last 24 Hours: Microbiology 09/23/22 13:04 Urine,Catheterized Urine Culture - Preliminary Constitutional: Present no acute distress, thin, cachectic and chronically ill appearing Head: Present atraumatic and normocephalic ENT: Present normal exam Comment:: Loss of bitemporal fat Neck: Present normal inspection Respiratory: Present normal respiratory effort; Absent rhonchi, wheezes or crackles Cardiac: Present Reg Rate and Rhythm GI: Present sof
--- NOTE | 2022-09-25 14:54 | PC.NURSE ---
Removed dislodged PIV from right upper arm. No signs of infiltration, bruising, or swelling noted. Placed a 20g ultrasound guided PIV to right brachial vein. patient tolerated well. no difficulty with insertion. Notified primary RN
[2022-09-25 19:28] LABS: Hematocrit 27.5 % (37.0-47.0)
[2022-09-25 20:09] LABS: Hemoglobin 8.6 g/dL (12.2-16.2)
[2022-09-26] VITALS: BP 115/58; PULSE 85; RESP 20; TEMP 36.8; O2SAT 92
[2022-09-26 04:00] VITALS: BP 108/50; PULSE 81; RESP 18; TEMP 36.6; O2SAT 98; BMI 21.1
--- NOTE | 2022-09-26 05:11 | PC.NURSE ---
Patient has had no complaint other than pain tonight. has rested comfortably. RN did attempt to turn patient to left side during the night and patient did not like to lay on that side. RN educated patient on importance of switching hips with a turning, but patinet still did not want to turn to that side. no other issues stated by patient
--- NOTE | 2022-09-26 07:15 | EXP.DC.SUM ---
General Admission date:: 09/23/22 Discharge date: 09/26/22 HPI HPI HPI: Ms. Vann is a 77-year-old female with chronic pain, recurring right hip dislocation, recurring admissions to the hospital with recent prolonged course complicated by pneumonia and ICU stay on ventilator. She presented to the hospital today because of worsening pain in her right leg. Was seen by her PCP yesterday who expressed concern for decubitus ulcer on her sacral region. Her chronic pain and fracture of her right femur limit her mobility. She spends most of her day either lying or in a chair. On arrival to the ER pain is her most prominent complaint. Denies fever, chest pain, nausea, vomiting. Given appearance of sacral wound, ER consulted medicine for admission and further management of wound. After arriving to the floor, patient is at baseline mentation. Complaining of pain in her right leg. Denies any fevers. It is painful for her to roll. Spends most of her time laying on her left side. Prominent decub appreciated just left of midline in sacral region. Hospital Course Hospital Course Hospital Course: 77-year-old female with history of recurrent dislocations of right prosthetic hip, chronic fracture of right femur. Presents with worsening pain and progression of decubitus sacral ulcer. Went to the OR 09/24 for debridement. Surgery was consulted during admission. Stable for discharge home with continued wound care management. Patient and not interested after multiple discussions in placement for alf. Will establish with home health. Strong concern for potential for readmission given patient's care preference for next site of care. Problems addressed as follows: Sacral decubitus wound Severe protein calorie malnutrition Chronic right femur fracture -No orthopedic intervention on right femur at this time. Surgery consulted to address sacral wound. Taken to the OR for debridement 09/24. Ulcer with clean base at this time. Continuing daily dry dressings. Discussed alf, patient not interested. supports patient's decision. We will establish with home health for PT/OT/wound care. Continue empiric course of antibiotics, transitioned to levofloxacin to complete a total of 7 days of antibiotics in conjunction with Flagyl. Continued home regimen for pain control including patient's oxycodone and gabapentin. As she became quite somnolent after her first few doses of gabapentin, recommend decreasing dosage to 400 mg instead of 800 mg. Patient's debility and malnutrition complicate her ability to get better. Her condition has progressed over the past 6+ months. Strong concern for decline. PT and OT worked with patient during admission. - Hypertension: continue home lisinopril, metoprolol - Anxiety Disorder: continue home clonazepam - Depression: continue home mirtazapine, Seroquel - Tobacco Abuse: cessation, NRT placed - Continue home dosage of Eliquis Nutrition if assisted with evaluation and supplementation during admission. Continue protein supplementation as tolerated. Spent 40 minutes in discharge counseling and direct care with patient. Exam Data for Last 24 hours Vital signs and Labs for Last 24 Hours: Temp Pulse Resp BP Pulse Ox 98 F 81 18 108/50 L 98 09/26/22 04:00 09/26/22 04:00 09/26/22 04:00 09/26/22 04:00 09/26/22 04:00 Laboratory Results - last 24 hr 09/24/22 06:55: Blood Type O Negative, Antibody Screen Positive, Crossmatch (AHG) See Detail 09/25/22 06:47: C-Reactive Protein 106.8 H 09/25/22 19:20: Hgb 8.6 L D, Hct 27.5 L I & O for Last 24 hours: Intake & Output 09/23/22 09/24/22 09/25/22 09/26/22 23:59 23:59 23:59 23:59 Intake Total 860 / 860 1851.04 / 1971.04 120 / 120 Output Total 1651 / 1651 950 / 950 Balance 860 / 860 200.04 / 320.04 -830 / -830 Weight 52.815 kg 53.79 kg 53.615 kg 56.047 kg Microbiology Reports for the Last 24 Hours: Microbiology
[2022-09-26 07:39] VITALS: BP 125/49; PULSE 84; RESP 16; TEMP 36.4; O2SAT 93
[2022-09-26 07:41] LABS: Basophils % 0.5 % (0.1-2.0); Eosinophils # 0.1 K/mm3 (0.0-0.4); Eosinophils % 2.4 % (0.1-12.0); Hematocrit 30.5 % (37.0-47.0); Hemoglobin 9.2 g/dL (12.2-16.2); Lymphocytes # 1.3 K/mm3 (0.7-4.5); Lymphocytes % 24.8 % (10-50); Mean Corpuscular HGB Conc 30.2 g/dL (31.8-35.4); Mean Corpuscular Hemoglobin 28.4 pg (27.0-31.2); Mean Corpuscular Volume 94.1 fl (81-99); Mean Platelet Volume 8.2 fl (7.4-10.4); Monocytes # 0.4 K/mm3 (0.1-1.0); Monocytes % 7.9 % (1.7-9.3); Neutrophils # 3.3 K/mm3 (1.8-7.8); Neutrophils % 64.4 % (37.0-80.0); Platelet Count 295 K/mm3 (142-424); Red Blood Count 3.24 M/mm3 (4.20-5.40); Red Cell Distribution Width 18.1 % (11.5-17.5); White Blood Count 5.2 K/mm3 (4.8-10.8)
[2022-09-26 07:49] LABS: Chloride 114 mmol/L (98-107); Sodium 140 mmol/L (136-145)
[2022-09-26 07:51] LABS: Alanine Aminotransferase 12 U/L (12-78); Aspartate Amino Transferase 17 U/L (14-36); Blood Urea Nitrogen 31 mg/dl (7-17); Creatinine Clearance Estimated 43 mL/min (50-200); Estimated Glomerular Filt Rate 61 ml/min (>60); GFR (African American) 74 ML/MIN (>60)
[2022-09-26 07:52] LABS: Albumin Level 2.1 g/dl (3.5-5.0); Albumin/Globulin Ratio 0.7 (1.1-1.8); Alkaline Phosphatase 117 U/L (38-126); Bilirubin,Total 0.2 mg/dl (0.2-1.3); Calcium 7.7 mg/dl (8.4-10.2); Carbon Dioxide 20 mmol/L (22.0-30.0); Globulin 3.2 g/dL (1.3-3.2); Glucose 80 mg/dl (74-100); Total Protein,Serum 5.3 g/dl (6.3-8.2)
[2022-09-26 07:56] LABS: Magnesium 1.5 mg/dl (1.6-2.3)
--- NOTE | 2022-09-26 09:30 | CA_ITS ---
FINAL REPORT TECHNIQUE: Graded compression, spectral analysis and ultrasound images of the venous system of the right upper extremity were obtained. CLINICAL HISTORY: Pain and edema on the right arm, IV side. Hx of previous DVT. COMPARISON: None FINDINGS: The jugular vein, subclavian vein, axillary vein, brachial vein, cephalic vein and basilic venous system are fully compressible and demonstrate no evidence of thrombosis. IMPRESSION: No evidence of thrombosis of the venous system of the right upper extremity. Reviewed, Interpreted and Dictated by Hunter Devi III, MD Transcribed by Mayr Kate Viramontes Authenticated and . [facility]
--- NOTE | 2022-09-26 10:12 | P.PN_ITS ---
Subjective Narrative: No complaints. Arrangements being made for discharge to home. Exam Data for Last 24 hours Vital signs and Labs for Last 24 Hours: Temp Pulse Resp BP Pulse Ox 97.6 F 84 16 125/49 L 93 L 09/26/22 07:39 09/26/22 07:39 09/26/22 07:39 09/26/22 07:39 09/26/22 07:39 Laboratory Results - last 24 hr 09/24/22 06:55: Blood Type O Negative, Antibody Screen Positive, Crossmatch (AHG) See Detail 09/25/22 19:20: Hgb 8.6 L D, Hct 27.5 L 09/26/22 07:22: WBC 5.2, RBC 3.24 L D, Hgb 9.2 L, Hct 30.5 L, MCV 94.1, MCH 28.4, MCHC 30.2 L, RDW 18.1 H, Plt Count 295, MPV 8.2, Neut % (Auto) 64.4, Lymph % (Auto) 24.8, [place] % (Auto) 7.9, Eos % (Auto) 2.4, Baso % (Auto) 0.5, Neut # (Auto) 3.3, Lymph # (Auto) 1.3, [place] # (Auto) 0.4, Eos # (Auto) 0.1, Baso # (Auto) 0.0, Sodium 140, Potassium 4.0, Chloride 114 H, Carbon Dioxide 20 L, Anion Gap 10.0, BUN 31 H, Creatinine 0.90, Estimated Creat Clear 43, Estimated GFR 61, Est GFR ( Amer) 74, Glucose 80, Calcium 7.7 L, Magnesium 1.5 L, Total Bilirubin 0.2, AST 17, ALT 12, Alkaline Phosphatase 117, Total Protein 5.3 L, Albumin 2.1 L, Globulin 3.2, Albumin/Globulin Ratio 0.7 L I & O for Last 24 hours: Intake & Output 09/23/22 09/24/22 09/25/22 09/26/22 11:59 11:59 11:59 11:59 Intake Total 140 / 140 1190 / 1495 2041.04 / 2041.04 Output Total 1101 / 1101 1700 / 1700 Balance 140 / 140 89 / 394 341.04 / 341.04 Weight 118 lb 9.386 oz 118 lb 3.2 oz 123 lb 9 oz Microbiology Reports for the Last 24 Hours: Microbiology 09/23/22 13:04 Urine,Catheterized Urine Culture - Final Multiple organisms, suggests contamination. *Routine Skin Exam Comments: Wound is clean with minimal areas of some focal scant necrosis which relatively easily sloughs off with 4 x 4. Progress Note: A&P Assessment and plan (1) Decubitus ulcer of sacral region, stage 3: Problem details: Borderline stage IV secondary to sacral margin encroachment Status: Acute Assessment and plan: Home health for wound care with dry dressings daily. (2) Femur fracture, right: Status: Chronic (3) Hypertension: Status: Chronic (4) Anxiety: Status: Chronic (5) Depression: Status: Chronic (6) Tobacco abuse: Status: Chronic (7) Protein-calorie malnutrition, severe: Status: Acute (8) Adult failure to thrive: Status: Acute
--- NOTE | 2022-09-26 11:39 | PC.NURSE ---
IV started in R ankle area #22 g, placement of IV was per pt request. IV placement okayed with Dr. Sheldon through primary RN Jan prior to sticking pt.
--- NOTE | 2022-09-29 10:37 | CARE MANAGER ---
Attempted to call patient to discuss recent discharge. Phone number on chart is not a working number.
== END 2022-09-26 13:01 | disposition home health service (06) ==
LOC: ER 15:31 → 2ND 16:01
PROVIDERS: Surgery; Admitting Provider Internal Medicine Adolescent Medicine; Emergency Provider Student in an Organized Health Care Education/Training Program; PCP Emergency Medicine; Visit Provider Internal Medicine Adolescent Medicine
PROC: (CPT 11042; principal; 2022-09-24 08:45)
DX: L89.153 Pressure ulcer of sacral region, stage 3 (principal); M19.90 Unspecified osteoarthritis, unspecified site; I10 Essential (primary) hypertension; F41.9 Anxiety disorder, unspecified; F32.A Depression, unspecified; R62.7 Adult failure to thrive; D64.9 Anemia, unspecified; E43 Unspecified severe protein-calorie malnutrition; Z68.21 Body mass index [BMI] 21.0-21.9, adult; Z79.899 Other long term (current) drug therapy; Z79.01 Long term (current) use of anticoagulants; M79.604 Pain in right leg; M24.451 Recurrent dislocation, right hip
CPT/HCPCS: 11042; G0378; 36415; 73502; 73552; 80053; 81001; 83735; 84100; 85014; 85018; 85025; 85610; 85730; 86140; 86850; 86870; 87086; 87636; 93005; 93971; 97163; 97165; 97530; 99285; C9803; J2405; J3475; P9016; U0003; U0005

== ENCOUNTER 2022-10-05 13:48 | Inpatient (IN) | payer MEDICARE, MEDICAID, SELFPAY ==
[2022-10-05] VITALS (10 sets, daily range): BP systolic 104–126; BP diastolic 54–62; PULSE 89–99; RESP 15–20; TEMP 36.4–36.8; O2SAT 84–94; BMI 19.2
--- NOTE | 2022-10-05 13:52 | XR_ITS ---
FINAL REPORT CLINICAL HISTORY: soa COMPARISON: Report only from 10/04/2020 FINDINGS: SINGLE VIEW CHEST A report from 10/04/2020 of a chest x-ray does not specify that any infiltrates or effusions are present. Cardiomegaly is noted. The mediastinum is within normal limits. There are bilateral pulmonary opacities, worse on the right side. There is no evidence of pneumothorax. The bony thorax is intact. IMPRESSION: Bibasilar pulmonary opacities, right greater than left, which may represent atelectasis or pneumonia. Reviewed, Interpreted and Dictated by Hunter Devi III, MD Transcribed by Thi Velásquez Authenticated and [facility]
--- NOTE | 2022-10-05 14:06 | HMH.ITSTN ---
went to get xray of patient. unable to get a good IV line on patient for the angio study-- hold until they can establish a line
--- NOTE | 2022-10-05 14:07 | HMH.EDGENADL ---
Discharge Plan Disposition Patient Disposition: Admitted Chief Complaint: Recheck/Abnormal Lab/Rx Prescriptions Prescriptions: No Action Eliquis 5 mg tablet 5 mg PO BID oxycodone 10 mg tablet 10 mg PO QID Qty: 120 0RF pantoprazole 40 mg tablet,delayed release (DR/EC) See Rx Instructions .ROUTE .COMPLEX Qty: 30 0RF Dose Instruction: TAKE ONE TABLET EVERY DAY Rx Instructions: TAKE ONE TABLET EVERY DAY [id number]-qkhohblhf-IV [Bromfed DM] 2-30-10 mg/5 mL syrup 5 ml PO Q6H PRN (Reason: cold symptoms) Qty: 118 0RF quetiapine 25 mg tablet 25 mg PO HS Rx Instructions: TAKE ONE TABLET BY MOUTH DAILY tizanidine 4 mg tablet 4 mg PO BID Rx Instructions: TAKE ONE TABLET BY MOUTH TWICE DAILY metoprolol tartrate 25 mg tablet 25 mg PO DAILY mirtazapine 15 mg tablet 15 mg PO HS clonazepam 0.5 mg tablet 0.5 mg PO TID PRN (Reason: Anxiety) Patient Comments: TAKE ONE TABLET THREE TIMES DAILY NEEDED gabapentin 800 mg tablet 400 mg PO QID PRN (Reason: nerve pain) 30 Days Qty: 0 0RF Patient Comments: TAKE ONE TABLET BY MOUTH FOUR TIMES DAILY FOR PAIN magnesium oxide 400 mg (241.3 mg magnesium) Tablet 400 mg PO DAILY 30 Days Qty: 30 0RF levofloxacin 500 mg tablet 500 mg PO DAILY 5 Days Qty: 5 0RF metronidazole 500 mg tablet 500 mg PO Q8H 5 Days Qty: 15 0RF Clinical Impressions Clinical Impression: Pulmonary edema Discharge ED Provider: Juan Mccrary General Adult HPI General Chief complaint: Recheck/Abnormal Lab/Rx Stated complaint: low sat Time Seen by Provider: 10/05/22 13:50 Mode of Arrival: EMS Source of Information: Patient and EMS Limitations: No Limitations Description of Symptoms (Recalled from ER Triage Doc. by RN): Per EMS pt Sat was low 50s upon their arrival to pt. States pt O2 sat rebounded well with duoneb treatment, pt arrived to ED with O2 at 6L per NC. Call to EMS was made per home health PT staff. Stated pt O2 was in the 40s. Pt alert and oriented upon arrival to ED, has not complaints. History of Present Illness HPI narrative: 77-year-old female history of immobility decubitus ulcer femur fracture presents after she was being evaluated by physical therapy and had a low oxygen saturation when they arrived. Apparently the saturation was in the 50s at home. EMS arrived and gave her a DuoNeb treatment and put her on O2 at 4 L per nasal cannula and she is around 90% at this time. She says she is otherwise asymptomatic and not having chest pain shortness of air abdominal pain nausea vomiting diarrhea or any other concerns Related Data Home Medications Medication Instructions Recorded Confirmed apixaban 5 mg tablet (Eliquis) 5 mg PO BID Blood thinner/Hip 07/08/22 09/23/22 Surgery metoprolol tartrate 25 mg tablet 25 mg PO DAILY Blood pressure 09/23/22 09/23/22 mirtazapine 15 mg tablet 15 mg PO HS Mood 09/23/22 09/24/22 quetiapine 25 mg tablet 25 mg PO HS Mood 09/23/22 09/24/22 tizanidine 4 mg tablet 4 mg PO BID muscle spasms 09/23/22 09/23/22 clonazepam 0.5 mg tablet 0.5 mg PO TID PRN Anxiety 09/24/22 09/24/22 Previous Rx's Medication Instructions Recorded oxycodone 10 mg tablet 10 mg PO QID Pain #120 tabs 09/15/22 gabapentin 800 mg tablet 400 mg PO QID PRN nerve pain 30 09/26/22 days #0 tabs levofloxacin 500 mg tablet 500 mg PO DAILY 5 days #5 tabs 09/26/22 magnesium oxide 400 mg (241.3 mg 400 mg PO DAILY 30 days #30 tabs 09/26/22 magnesium) tablet metronidazole 500 mg tablet 500 mg PO Q8H 5 days #15 tabs 09/26/22 pantoprazole 40 mg tablet,delayed See Rx Instructions .Route 09/30/22 release .COMPLEX #30 tabs vcrogyxapgbdefp-mtwcocszgeucguf-BW 5 ml PO Q6H PRN cold symptoms #118 10/02/22 2 mg-30 mg-10 mg/5 mL oral syrup mL (Bromfed DM) Allergies Allergy/AdvReac Type Severity Reaction Status Date / Time hydroxyzine [From Vistaril] Allergy Severe Hives Verified 09/22
[2022-10-05 14:11] LABS: VBG Base Excess -9.8 mmol/L (-2.4-2.3); VBG Oxygen Saturation 78.4 % (50-70); VBG PCO2 37.7 mmol/L (35-51); VBG PH 7.27 mmol/L (7.31-7.41); VBG PO2 48.8 mmol/L (28-40); VBG Total CO2 18.2 mmol/L (23-27)
--- NOTE | 2022-10-05 14:17 | PC.NURSE ---
pt on 4L per NC at this time SaO2 83%, increased to 5L per NC at this time
--- NOTE | 2022-10-05 14:21 | ECG_ITS ---
APPROVED REPORT Exam: Resting ECG HR:89 bpm ECG Measurements Heart Rate 89 AXES SC 194 P 14 QRSd 89 QRS 98 QT 358 T -20 QTc 405 Conclusion SINUS RHYTHM BORDERLINE RIGHT AXIS DEVIATION [QRS AXIS > 90] NONSPECIFIC ST & T-WAVE ABNORMALITY ABNORMAL ECG UNCONFIRMED REPORT Electronically signed by : Tru Thornton MD 10/06/2022 07:56:54
[2022-10-05 14:33] LABS: Coronavirus 19, PCR Not Detected (NotDetected); Influenza A, PCR Not Detected (NotDetected); Influenza B, PCR Not Detected (NotDetected)
[2022-10-05 14:44] LABS: Alanine Aminotransferase 284 U/L (12-78); Albumin Level 2.8 g/dl (3.5-5.0); Albumin/Globulin Ratio 0.7 (1.1-1.8); Alkaline Phosphatase 317 U/L (38-126); Bilirubin,Total 0.4 mg/dl (0.2-1.3); Blood Urea Nitrogen 32 mg/dl (7-17); Calcium 8.3 mg/dl (8.4-10.2); Carbon Dioxide 19 mmol/L (22.0-30.0); Creatinine Clearance Estimated 26 mL/min (50-200); Estimated Glomerular Filt Rate 34 ml/min (>60); GFR (African American) 41 ML/MIN (>60); Globulin 4.1 g/dL (1.3-3.2); Glucose 127 mg/dl (74-100); Magnesium 1.8 mg/dl (1.6-2.3); Potassium 4.8 mmoL/L (3.5-5.1); Sodium 136 mmol/L (136-145); Total Protein,Serum 6.9 g/dl (6.3-8.2)
--- NOTE | 2022-10-05 14:49 | PC.NURSE ---
pt O2 increased from 5L to 6L per NC at this time.
[2022-10-05 14:54] LABS: NT Pro Brain Natriuretic Pep. 21500 pg/mL (0-450)
[2022-10-05 15:00] LABS: Troponin I < 0.01 ng/ml (0.00-0.034)
[2022-10-05 15:01] LABS: Aspartate Amino Transferase 1333 U/L (14-36)
[2022-10-05 15:04] LABS: Basophils % 0.2 % (0.1-2.0); Eosinophils % 0.3 % (0.1-12.0); Hematocrit 34.9 % (37.0-47.0); Hemoglobin 10.5 g/dL (12.2-16.2); Lymphocytes # 1.7 K/mm3 (0.7-4.5); Lymphocytes % 16.2 % (10-50); Mean Corpuscular Hemoglobin 28.5 pg (27.0-31.2); Mean Corpuscular Volume 94.8 fl (81-99); Mean Platelet Volume 8.9 fl (7.4-10.4); Monocytes # 0.5 K/mm3 (0.1-1.0); Monocytes % 4.7 % (1.7-9.3); Neutrophils # 8.1 K/mm3 (1.8-7.8); Neutrophils % 78.6 % (37.0-80.0); Platelet Count 529 K/mm3 (142-424); Red Blood Count 3.68 M/mm3 (4.20-5.40); Red Cell Distribution Width 17.7 % (11.5-17.5); White Blood Count 10.3 K/mm3 (4.8-10.8)
--- NOTE | 2022-10-05 15:54 | PC.NURSE ---
DR MCOCY SPEAKING WITH DR CORTES FOR ADMISSION
--- NOTE | 2022-10-05 15:57 | PC.NURSE ---
PT ACCEPTED BY DR CORTES, CARE MANAGEMENT NOTIFIED OF ADMISSION
[2022-10-05 16:23] LABS: Anion Gap 12.8 mEq/L (5-15); Chloride 109 mmol/L (98-107)
--- NOTE | 2022-10-05 16:27 | EXP.HP ---
History of Present Illness *Admission Date: 10/05/22 *Reason for visit:: Debility, leg pain, decubitus ulcer, hypoxia *History of present illness: Ms. Vann is a 77-year-old female with chronic pain, recurring right hip dislocation, recurring admissions to the hospital with recent prolonged course complicated by pneumonia and ICU stay on ventilator within the past 3 months. She presented to the hospital today because of worsening pain in her right leg per her report. Per ER documentation however, patient was at home and EMS was called. She was being evaluated by PT with home health and found to have low oxygen saturations when they arrived. Reportedly the saturation was in the 50s at home. Patient is not on home oxygen. EMS arrived and gave her a DuoNeb treatment and put her on O2 at 4 L per nasal cannula and she is around 90% at this time. She denies any other symptoms. No cough, chest pain, diarrhea. Does complain of some nausea and vomiting this morning but this is not uncommon for her. Complaining more of her leg pain than anything else and asking for pain medication upon arrival to the floor. Her chronic pain and fracture of her right femur limit her mobility. She spends most of her day either lying or in a chair. On work-up in the ER, patient found to have severely elevated BNP at 21,000. White cell count normal with no left shift. She is afebrile. Requiring 6 L to sat in the low 90s. Presence of an MAXIMILIANO with creatinine 1.5. Chest imaging obtained showing diffuse right-sided opacification concerning for pulmonary edema versus pneumonia. Medicine consulted for further admission. Discussed case with the ER, low concern for infection. Symptoms most consistent with pulmonary edema and heart failure. Antibiotics held at this time. After arriving to the floor, patient is at baseline mentation. Complaining of pain in her right leg. Denies any fevers. Spends most of her time laying on her left side. Decubitus wound appears healthy. No undermining. Minor slough present. Stable if not slightly better compared to exam on discharge at last hospitalization that I performed. [facility] Disclaimer: The information contained in this section may have been updated after the patient was seen, as this information can be updated by other users. Medical History Allergies Gallbladder disease Hx of dislocation of hip Hx of gastric ulcer Osteoarthritis Surgical History History of cholecystectomy History of hip surgery Family History Family history of diabetes mellitus type II Social History Smoking Status: Unknown if ever smoked second hand exposure: No alcohol intake: never substance use type: denies use current occupational status: retired Travel in the last 8 weeks: None household members: spouse housing: house lives independently: Yes marital status: current occupational exposures/hazards: No caffeine: Yes special parish needs: Yes agree to transfusion: Yes do you feel safe at home: Yes victim of physical abuse: No victim of emotional abuse: No victim of sexual abuse: No would you like helpful sources: No Review of Systems Constitutional Constitutional: Denies headache(s) ENT Ears, Nose, Mouth, and Throat: Denies headache(s) *Neurologic Neurologic: Denies headache(s) Meds Home Medications and Allergies Home Medications Medication Instructions Recorded Confirmed Type apixaban 5 mg tablet (Eliquis) 5 mg PO BID Blood thinner/Hip 07/08/22 10/05/22 History Surgery oxycodone 10 mg tablet 10 mg PO QID Pain #120 tabs 09/15/22 10/05/22 Rx metoprolol tartrate 25 mg tablet 25 mg PO DAILY Blood pressure 09/23/22 10/05/22 History mirtazapine 15 mg tablet 15 mg PO HS Mood 09/23/2209/26
--- NOTE | 2022-10-05 16:30 | PC.NURSE ---
report called to isaura cary at this time, states she will send staff down to transport pt.
--- NOTE | 2022-10-05 16:32 | PC.NURSE ---
vascular here for echo
--- NOTE | 2022-10-05 17:01 | PC.NURSE ---
arrived to floor by stretcher from ED
[2022-10-05 18:10] LABS: Acetaminophen < 10 ug/ml (10-30)
[2022-10-05 18:25] LABS: Troponin I < 0.01 ng/ml (0.00-0.034)
--- NOTE | 2022-10-05 18:41 | PC.WOUNDNOTE ---
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
--- NOTE | 2022-10-05 18:47 | PC.WOUNDNOTE ---
anterior (L) thigh (L) posterior upper thigh (L) knee
--- NOTE | 2022-10-05 18:59 | PC.NURSE ---
sharmaine, stage 3 ulcer cleaned with betadine, covered with mepilex. Skin tears noted to the left posterior thigh, left knee and right anterior thigh covered with island border dressings per Dr. Sheldon.
[2022-10-05 19:42] LABS: Procalcitonin 0.988 ng/mL (0.0-2.0)
[2022-10-05 21:24] LABS: Troponin I < 0.01 ng/ml (0.00-0.034)
[2022-10-06 04:00] VITALS: BP 83/43; PULSE 83; RESP 20; TEMP 36.4; O2SAT 97; BMI 20.2
[2022-10-06 06:35] LABS: Basophils % 0.3 % (0.1-2.0); Eosinophils % 0.3 % (0.1-12.0); Hematocrit 32.3 % (37.0-47.0); Hemoglobin 9.8 g/dL (12.2-16.2); Lymphocytes # 0.6 K/mm3 (0.7-4.5); Lymphocytes % 15.4 % (10-50); Mean Corpuscular HGB Conc 30.2 g/dL (31.8-35.4); Mean Corpuscular Hemoglobin 28.3 pg (27.0-31.2); Mean Corpuscular Volume 93.7 fl (81-99); Mean Platelet Volume 7.7 fl (7.4-10.4); Monocytes # 0.1 K/mm3 (0.1-1.0); Monocytes % 2.5 % (1.7-9.3); Neutrophils # 3.4 K/mm3 (1.8-7.8); Neutrophils % 81.5 % (37.0-80.0); Platelet Count 443 K/mm3 (142-424); Red Blood Count 3.44 M/mm3 (4.20-5.40); Red Cell Distribution Width 17.7 % (11.5-17.5); White Blood Count 4.1 K/mm3 (4.8-10.8)
--- NOTE | 2022-10-06 07:32 | HMH.PHAINT1 ---
Pharmacy Intervention Comments: Patient's home medication reviewed and verified with external pharmacy. -Tonio Singh, Pharm Student
[2022-10-06 07:33] VITALS: BP 84/41; PULSE 96; RESP 19; TEMP 36.8; O2SAT 91
[2022-10-06 07:53] LABS: Alanine Aminotransferase 230 U/L (12-78); Albumin Level 2.6 g/dl (3.5-5.0); Albumin/Globulin Ratio 0.7 (1.1-1.8); Alkaline Phosphatase 267 U/L (38-126); Anion Gap 15.3 mEq/L (5-15); Aspartate Amino Transferase 513 U/L (14-36); Bilirubin,Total 0.3 mg/dl (0.2-1.3); Blood Urea Nitrogen 34 mg/dl (7-17); Calcium 7.8 mg/dl (8.4-10.2); Carbon Dioxide 18 mmol/L (22.0-30.0); Chloride 109 mmol/L (98-107); Creatinine Clearance Estimated 29 mL/min (50-200); Estimated Glomerular Filt Rate 37 ml/min (>60); GFR (African American) 44 ML/MIN (>60); Globulin 3.9 g/dL (1.3-3.2); Glucose 126 mg/dl (74-100); Magnesium 1.6 mg/dl (1.6-2.3); Potassium 4.3 mmoL/L (3.5-5.1); Sodium 138 mmol/L (136-145); Total Protein,Serum 6.5 g/dl (6.3-8.2)
--- NOTE | 2022-10-06 08:05 | PC.NURSE ---
MD notified of pt's hypotension. Hold metoprolol this AM. And notifiy MD prior to administering pain medication.
[2022-10-06 08:47] VITALS: BMI 20.2
[2022-10-06 08:52] VITALS: BP 103/50
--- NOTE | 2022-10-06 09:21 | HMH.OTEV ---
OT Inpatient Evaluation Rehab OT IP Evaluation Start: 10/05/22 17:39 Freq: ONCE Status: Active Protocol: Document 10/06/22 09:09 KARMEN (Rec: 10/06/22 09:21 KARMEN [id number]) Rehab OT IP Assessment Subjective History Ms. Vann is a 77-year-old female with chronic pain, recurring right hip dislocation, recurring admissions to the hospital with recent prolonged course complicated by pneumonia and ICU stay on ventilator within the past 3 months. She presented to the hospital today because of worsening pain in her right leg per her report. Per ER documentation however, patient was at home and EMS was called. She was being evaluated by PT with home health and found to have low oxygen saturations when they arrived. Reportedly the saturation was in the 50s at home. Patient is not on home oxygen. EMS arrived and gave her a DuoNeb treatment and put her on O2 at 4 L per nasal cannula and she is around 90% at this time. She denies any other symptoms. No cough, chest pain, diarrhea. Does complain of some nausea and vomiting this morning but this is not uncommon for her. Complaining more of her leg pain than anything else and asking for pain medication upon arrival to the floor. Her chronic pain and fracture of her right femur limit her mobility. She spends most of her day either lying or in a chair. On work-up in the ER, patient found to have severely elevated BNP at 21,000. White cell count normal with no left shift. She is afebrile. Requiring 6 L to sat in the low 90s. Presence
--- NOTE | 2022-10-06 11:43 | PC.NURSE ---
Courtesy Round Patient up in chair for lunch. Trash and linens emptied . Ice water refilled . Patient voiced no needs at this time and call johnson within reach.
--- NOTE | 2022-10-06 14:31 | DIET.NUTRFU ---
Unable to interview, patient has been sleeping most of the day. She was noted to consume 50% at lunch. She is on cardiac diet. Last admit she had ensure and cottage cheese ordered to help meet caloric/protein needs will reorder. Also reordered prostat AWC BID to help provide extra protein and vitamins to aid in healing, she has multiple areas of skin breakdown. patient does trigger for severe PCM, provider already noted. patient's weight is up this admit from 44kg to 53kg, possibly due to CHF diuretic tx provided yesterday. Will continue to follow meal intake and POC, provider to review hospice options.
--- NOTE | 2022-10-06 14:44 | HMH.PTEV ---
Physical Therapy Evaluation Rehab PT IP Evaluation Start: 10/05/22 17:39 Freq: ONCE Status: Active Protocol: Document 10/06/22 14:31 PHOKAVIN (Rec: 10/06/22 14:44 PHORNE [id number]) Subjective/History History History 77 yowf adm to [facility] with pulmonary edema. Hx of Chronic pain, chronic R femur fx, chronic sacral decubitus S/P recent debridement. She reports she lives with her spouse and he performs all ADLs and transfers for her at baseline. Subjective Subjective Pt c/o pain in R LE and sacrum this pm. Rehab PT IP Eval Objective Appearance Patient Behavior Appropriate Patient Orientation Person,Place,Time Difficulty following instructions none Speech Pattern Clear Ambulation Patient Able to Ambulate No Balance Ability to Arise Unable Sitting Balance Steady, safe Standing Balance Unsteady Dynamic Sitting Balance Ability Fair Dynamic Standing Balance Ability Poor Transfers Bed Transfer Ability Maximum x 2 (75% assist) Chair Transfer Ability Total/Dependent (100%) Sit to Stand Bed Transfer Ability Total/Dependent (100%) Sit to Stand Chair Transfer Ability Total/Dependent (100%) Rehab PT IP prob,goals,plan Problems Date of Evaluation: 10/06/22 PT IP Problems Bed Mobility,Transfers Rehab Potential Rehab Potential Good Plan PT Intervention Plan Bed Mobility,Transfers PT Plan Frequency Daily Duration LOS Discharge Goals Bed Transfer Ability Maximum x 1 (75% assist) Sit to Stand Chair Transfer Ability Maximum x 2 (75% assist) Discharge Plan PT Discharge Plan Pt is currently most appropriate for SNF level of care. If she returns home she will need 24 hr assistance available. G -code Required No Eval Complexity Eval Charge Codes 42386 - High Complexity PHYSICIAN CERTIFICATION: I certify the specified therapy services for Linsey Vann are required, authorized, and reviewed every 30 days.
--- NOTE | 2022-10-06 14:48 | HMH.PTWOUND ---
Rehab Inpt Wound Evaluation Rehab IP Wound Evaluation Start: 10/05/22 17:38 Freq: ONCE Status: Active Protocol: Document 10/06/22 14:44 PHORJACQUELINE (Rec: 10/06/22 14:48 PHORNE [id number]) Rehab PT Wound Assessment Subjective Subjective 77 yowf adm to [facility] with pulmonary edema. Hx of Chronic pain, chronic R femur fx, chronic sacral decubitus S/P recent debridement. She reports she lives with her spouse and he performs all ADLs and transfers for her at baseline. Wound Sacrum Wound Type Pressure Ulcer Is This a Chronic Wound Yes Wound Staging Stage III Query Text:Stage I - Unbroken, red skin, no blanching. Stage II - Skin broken, superficial skin loss involving epidermis alone or also dermis. Partial loss of skin layers. Stage III - Pressure area involves epidermis, dermis and subcutaneous tissue, full thickness skin loss. Stage IV - Pressure area involves epidermis, subcutaneous tissue, bone and other supportive tissue. Full thickness skin loss with extensive destruction of underlying tissue and structures. Wound Length (cm) 8.0 Wound Width (cm) 4.0 Wound Depth (cm) 1.5 Wound Bed Appearance Beefy Red,Yellow,Slough Percentage Granulated (%) 75 Percentage of Slough (%) 25 Wound Margins Description Well Defined Surrounding Tissue Appearance Cavalero,Dark Red Wound Drainage Description Purulent,Yellow Drainage Amount Moderate Drainage Odor No Odor Dressing Status Changed Packing Type Alginate Primary Dressing Composite Comment optifoam gentle sacrum Wound Debridement Method Gauze,Mechanical Wound Debridement Amount of Tissue None Removed Dressing Change Patient Tolerance Tolerated Well Plan/Recommendation Comment Continue dressing changes as above as needed daily. Alginate may be left in wound bed up to 7 days if not completely saturated with drainage. Eval Complexity Eval Charge Codes 82963 - High Complexity PHYSICIAN CERTIFICATION: I certify the specified therap
--- NOTE | 2022-10-06 14:56 | CARE MANAGER ---
Dr. Armstrong stated the of patient is going to discuss Hospice with patient and family. He is concerned regarding going to placement terminal gauger and what would happen to the property in both of their names. He was gone from patient's room when I went over there. Attempted to call him, but no answer and no voicemail. BIN Garcia
--- NOTE | 2022-10-06 15:07 | EXP.PN ---
Subjective *Date: 10/06/22 *Time: 16:46 Interval history: No acute events overnight. She hasn't had dyspnea. Exam Data for Last 24 hours Vital signs and Labs for Last 24 Hours: Temp Pulse Resp BP Pulse Ox O2 Del Method O2 Flow Rate 98.2 F 96 H 19 103/50 L 91 L Nasal Cannula 3 10/06/22 07:33 10/06/22 07:33 10/06/22 07:33 10/06/22 08:52 10/06/22 07:33 10/06/22 13:00 10/06/22 13:00 Laboratory Results - last 24 hr 10/05/22 13:35: WBC 10.3, RBC 3.68 L, Hgb 10.5 L, Hct 34.9 L, MCV 94.8, MCH 28.5, MCHC 30.0 L, RDW 17.7 H, Plt Count 529 H, MPV 8.9, Neut % (Auto) 78.6, Lymph % (Auto) 16.2, [place] % (Auto) 4.7, Eos % (Auto) 0.3, Baso % (Auto) 0.2, Neut # (Auto) 8.1 H, Lymph # (Auto) 1.7, [place] # (Auto) 0.5, Eos # (Auto) 0.0, Baso # (Auto) 0.0, Acetaminophen < 10 L 10/05/22 14:23: SARS-CoV-2 (PCR) Not detected, Influenza A Untype (PCR) Not detected, Influenza Type B (PCR) Not detected 10/05/22 17:35: Troponin I < 0.01, Procalcitonin 0.988 10/05/22 20:15: Troponin I < 0.01 10/05/22 : Chloride 109 H, Anion Gap 12.8 10/06/22 06:19: WBC 4.1 L D, RBC 3.44 L, Hgb 9.8 L, Hct 32.3 L, MCV 93.7, MCH 28.3, MCHC 30.2 L, RDW 17.7 H, Plt Count 443 H, MPV 7.7, Neut % (Auto) 81.5 H, Lymph % (Auto) 15.4, [place] % (Auto) 2.5, Eos % (Auto) 0.3, Baso % (Auto) 0.3, Neut # (Auto) 3.4, Lymph # (Auto) 0.6 L, [place] # (Auto) 0.1, Eos # (Auto) 0.0, Baso # (Auto) 0.0, Sodium 138, Potassium 4.3, Chloride 109 H, Carbon Dioxide 18 L, Anion Gap 15.3 H, BUN 34 H, Creatinine 1.40 H, Estimated Creat Clear 29, Estimated GFR 37 L, Est GFR ( Amer) 44 L, Glucose 126 H, Calcium 7.8 L, Magnesium 1.6 D, Total Bilirubin 0.3, AST 513 H* D, ALT 230 H, Alkaline Phosphatase 267 H, Total Protein 6.5, Albumin 2.6 L, Globulin 3.9 H, Albumin/Globulin Ratio 0.7 L I & O for Last 24 hours: Intake & Output 10/03/22 10/04/22 10/05/22 10/06/22 23:59 23:59 23:59 23:59 Intake Total 240 / 600 840 / 840 Output Total 0 / 0 0 / 0 Balance 240 / 600 840 / 840 Weight 50.802 kg 53.63 kg Constitutional Constitutional: no acute distress *Routine HEENT Exam Head: Present normocephalic Eye: Present EOMI and PERRL ENT: Present mucous membranes moist *Routine Neck Exam Neck: Present supple; Absent lymphadenopathy *Routine Respiratory Exam Respiratory: Present CTA bilaterally *Routine Cardiovascular Exam Cardiovascular: Present RRR *Routine Abdominal Exam Abdominal: Present soft and normoactive bowel sounds; Absent tenderness *Routine Extremities Exam Extremities: Absent cyanosis, clubbing or edema *Routine Skin Exam Skin: Present warm *Routine Neurological Exam Neurological: Present alert and oriented X3 Assessment and Plan *Assessment and plan (1) Acute CHF: Status: Acute Qualifiers: Heart failure type: diastolic Qualified Code(s): I50.31 - Acute diastolic (congestive) heart failure Category: Medical Code(s): I50.9 - Heart failure, unspecified (2) Pulmonary edema: Status: Acute Qualifiers: Chronicity: acute Qualified Code(s): J81.0 - Acute pulmonary edema Category: Medical Code(s): J81.1 - Chronic pulmonary edema (3) MAXIMILIANO (acute kidney injury): Status: Acute Category: Medical Code(s): N17.9 - Acute kidney failure, unspecified (4) Hepatitis: Status: Acute Category: Medical Code(s): K75.9 - Inflammatory liver disease, unspecified (5) Transaminitis: Status: Acute Category: Medical Code(s): R74.01 - Elevation of levels of liver transaminase levels (6) Recurrent dislocation, right hip: Status: Chronic Category: Medical Code(s): M24.451 - Recurrent dislocation, right hip (7) Decubitus ulcer of sacral region, stage 3: Problem Comment: Borderline stage IV secondary to sacral margin encroachment Status: Chronic Category: Medical Code(s): L89.153 - Pressure ulcer of sacral region, stage 3 (8) Hy
[2022-10-06 15:35] VITALS: BP 104/43; PULSE 95; RESP 18; TEMP 36.7; O2SAT 94
[2022-10-06 20:00] VITALS: BP 99/43; PULSE 72; PULSE 96; RESP 18; TEMP 36.4; O2SAT 93; O2SAT 95
[2022-10-06 20:40] LABS: Microscopic, Urine URINE MICROSCOPIC (MICROSCOPIC)
[2022-10-06 21:25] LABS: Appearance,Urine SL CLOUDY (Clear); Bilirubin,Urine Negative (Negative); Blood, Urine 3+ (Negative); Color,Urine YELLOW (Yellow); Glucose,Urine (UA) Negative (Negative); Ketones,Urine Negative (Negative); Leukocyte Esterase,Urine 2+ (Negative); Nitrate,Urine Negative (Negative); Protein,Urine TRACE (Negative); Specific Gravity, Urine 1.015 (1.005-1.030); Urobilinogen,Urine 0.2 EU/dl (0.2)
[2022-10-06 21:53] LABS: Bacteria,Urine 1+ /lpf
[2022-10-07] VITALS (7 sets, daily range): BP systolic 102–115; BP diastolic 50–57; PULSE 74–90; RESP 16–18; TEMP 36.4–36.6; O2SAT 91–99; BMI 20.5
--- NOTE | 2022-10-07 01:27 | PC.NURSE ---
3 liquid BMs noted t/o 24 hr period, diarrhea panel ordered and specimen sent to lab at this time.
[2022-10-07 01:47] LABS: Adenovirus F 40/41, stool Not Detected (NotDetected); Astrovirus Not Detected (NotDetected); Campylobacter Not Detected (NotDetected); Clostridium Difficile A/B, PCR Not Detected (NotDetected); Cryptosporidium Not Detected (NotDetected); Cyclospora Cayetanesis Not Detected (NotDetected); Entamoeba histolytica Not Detected (NotDetected); Enteroaggregative E coli Not Detected (NotDetected); Enteropathogenic E coli Not Detected (NotDetected); Enterotoxigenic E coli Not Detected (NotDetected); Giardia lamblia Not Detected (NotDetected); Norovirus Not Detected (NotDetected); Plesimonas Shigalloides, PCR Not Detected (NotDetected); Rotavirus A Not Detected (NotDetected); Salmonella, PCR Not Detected (NotDetected); Sapovirus Not Detected (NotDetected); Shiga-like toxin E coli Not Detected (NotDetected); Shigella Enterovasive E coli Not Detected (NotDetected); Vibrio Cholerae Not Detected (NotDetected); Vibrio, PCR Not Detected (NotDetected); Yersinia Entercolitica, PCR Not Detected (NotDetected)
--- NOTE | 2022-10-07 06:00 | XR_ITS ---
PROCEDURE INFORMATION: Exam: XR Chest Exam date and time: 10/07/2022 5:18 AM Age: 77 years old Clinical indication: Condition or disease; Lung condition and disease; Patient HX: Acute respiratory failure TECHNIQUE: Imaging protocol: Radiologic exam of the chest. Views: 1 view. COMPARISON: CR XR CHEST PORTABLE 10/05/2022 1:55 PM FINDINGS: Lungs: Similar interstitial and airspace opacities in the right greater than left lungs. Calcified granuloma in the left lung. Pleural spaces: Small bilateral pleural effusions. No pneumothorax. Heart/Mediastinum: Cardiomegaly. Bones/joints: Unremarkable. IMPRESSION: 1. Similar interstitial and airspace opacities in the right greater than left lungs, which may reflect edema and/or pneumonia. 2. Small bilateral pleural effusions.
--- NOTE | 2022-10-07 06:59 | PC.NURSE ---
Pt has c/o right hip pain 2x t/o shift. PRN pain medication administered, pt states favorable results. Pt has had a total of 3 BMs this shift. Call light within reach.
[2022-10-07 07:17] LABS: Basophils % 0.1 % (0.1-2.0); Eosinophils # 0.1 K/mm3 (0.0-0.4); Eosinophils % 1.6 % (0.1-12.0); Hemoglobin 11.9 g/dL (12.2-16.2); Lymphocytes # 0.6 K/mm3 (0.7-4.5); Lymphocytes % 15.1 % (10-50); Mean Corpuscular HGB Conc 30.5 g/dL (31.8-35.4); Mean Corpuscular Hemoglobin 28.1 pg (27.0-31.2); Mean Corpuscular Volume 92.1 fl (81-99); Monocytes # 0.2 K/mm3 (0.1-1.0); Monocytes % 4.9 % (1.7-9.3); Neutrophils # 3.1 K/mm3 (1.8-7.8); Neutrophils % 78.4 % (37.0-80.0); Platelet Count 257 K/mm3 (142-424); Red Blood Count 4.24 M/mm3 (4.20-5.40); Red Cell Distribution Width 17.9 % (11.5-17.5)
[2022-10-07 08:22] LABS: NT Pro Brain Natriuretic Pep. 14500 pg/mL (0-450)
--- NOTE | 2022-10-07 08:25 | EXP.PN ---
Subjective *Date: 10/07/22 *Time: 13:25 Interval history: She is saturating 96% on 2L NC. i/o +1000/-600, per nurse she had several undocumented voids CBC with 4K WBCs, similar to yesterday. CMP with Cr 1.25, decreased from 1.4; AST 495 decreased from 513 Mg 1.5 CXR - Similar interstitial and airspace opacities in the right greater than left lungs, which may reflect edema and/or pneumonia. Echocardiogram final report is pending. BNP is 14K, decreased from 21K. She feels much better today and ate most of her meals. She hasn't had cough or shortness of breath but continues to require supplemental oxygen. Exam Data for Last 24 hours Vital signs and Labs for Last 24 Hours: Temp Pulse Resp BP Pulse Ox O2 Del Method O2 Flow Rate 97.5 F L 90 16 114/57 L 96 Nasal Cannula 2 10/07/22 07:55 10/07/22 07:55 10/07/22 07:55 10/07/22 07:55 10/07/22 07:55 10/07/22 07:55 10/07/22 07:55 Laboratory Results - last 24 hr 10/06/22 20:30: Urine Color Yellow, Urine Appearance Sl cloudy, Urine pH 6.0, Ur Specific [place] 1.015, Urine Protein Trace, Urine Glucose (UA) Negative, Urine Ketones Negative, Urine Blood 3+, Urine Nitrate Negative, Urine Bilirubin Negative, Urine Urobilinogen 0.2, Ur Leukocyte Esterase 2+ A, Urine RBC 10-20, Urine WBC 10-20, Ur Squamous Epith Cells 3-5, Urine Bacteria 1+ 10/07/22 00:49: Stl Aeromonas (PCR) Not detected, Stl C. cayetanensis PCR Not detected, Stool Rotavirus (PCR) Not detected, Stl Adenov F 40/41 PCR Not detected, Stool Astrovirus (PCR) Not detected, Stool Campylobacter PCR Not detected, Stl C.difficile Tox PCR Not detected, Stool Cryptosporidium PCR Not detected, Stl E.coli Shiga Tox PCR Not detected, Stool E coli O157 PCR Not detected, Stl Enterotoxigenic E PCR Not detected, Stool EPEC (PCR) Not detected, Stool EAEC (PCR) Not detected, Stl E. histolytica PCR Not detected, Stool Giardia Lamblia PCR Not detected, Stool Salmonella PCR Not detected, Stool Sapovirus (PCR) Not detected, Stl P. shigelloides PCR Not detected, Stl Shigella/EIEC PCR Not detected, St Y.enterocolitica PCR Not detected, Stool Vibrio (PCR) Not detected, Stl Vibrio cholerae PCR Not detected, Stl Norovirus GI/GII PCR Not detected 10/07/22 07:10: WBC 4.0 L, RBC 4.24, Hgb 11.9 L, Hct 39.0, MCV 92.1, MCH 28.1, MCHC 30.5 L, RDW 17.9 H, Plt Count 257 D, MPV 9.0, Neut % (Auto) 78.4, Lymph % (Auto) 15.1, [place] % (Auto) 4.9, Eos % (Auto) 1.6, Baso % (Auto) 0.1, Neut # (Auto) 3.1, Lymph # (Auto) 0.6 L, [place] # (Auto) 0.2, Eos # (Auto) 0.1, Baso # (Auto) 0.0 I & O for Last 24 hours: Intake & Output 10/04/22 10/05/22 10/06/22 10/07/22 23:59 23:59 23:59 23:59 Intake Total 240 / 600 1320 / 1320 300 / 300 Output Total 0 / 0 350 / 350 250 / 250 Balance 240 / 600 970 / 970 50 / 50 Weight 50.802 kg 53.63 kg 54.5 kg Constitutional Constitutional: no acute distress *Routine HEENT Exam Head: Present normocephalic Eye: Present EOMI and PERRL ENT: Present mucous membranes moist *Routine Neck Exam Neck: Present supple; Absent lymphadenopathy *Routine Respiratory Exam Respiratory: Present CTA bilaterally *Routine Cardiovascular Exam Cardiovascular: Present RRR *Routine Abdominal Exam Abdominal: Present soft and normoactive bowel sounds; Absent tenderness *Routine Extremities Exam Extremities: Absent cyanosis, clubbing or edema *Routine Skin Exam Comments: stage 4 sacral decubitus ulcer *Routine Neurological Exam Neurological: Present alert and oriented X3 Assessment and Plan *Assessment and plan (1) Acute CHF: Status: Acute Qualifiers: Heart failure type: diastolic Qualified Code(s): I50.31 - Acute diastolic (congestive) heart failure Category: Medical Code(s): I50.9 - Heart failure, unspecified (2) Pulmonary edema: Status: Acute Qualifiers: Chronicity: acute Qualified Code(s): J81.0 - Acute pulmonary edema Category: Medical Code(s): J81.1 - Chronic pulmonary
[2022-10-07 08:30] LABS: Anion Gap 17.2 mEq/L (5-15); Blood Urea Nitrogen 32 mg/dl (7-17); Carbon Dioxide 19 mmol/L (22.0-30.0); Chloride 105 mmol/L (98-107); Potassium 4.2 mmoL/L (3.5-5.1); Sodium 137 mmol/L (136-145)
[2022-10-07 08:31] LABS: Bilirubin,Total 0.3 mg/dl (0.2-1.3); Creatinine Clearance Estimated 33 mL/min (50-200); Creatinine,Serum 1.25 mg/dl (0.52-1.04); Estimated Glomerular Filt Rate 42 ml/min (>60); GFR (African American) 51 ML/MIN (>60); Glucose 120 mg/dl (74-100); Magnesium 1.5 mg/dl (1.6-2.3)
[2022-10-07 08:34] LABS: Alanine Aminotransferase 225 U/L (12-78); Albumin Level 3.3 g/dl (3.5-5.0); Albumin/Globulin Ratio 1.1 (1.1-1.8); Aspartate Amino Transferase 495 U/L (14-36); Globulin 2.9 g/dL (1.3-3.2); Total Protein,Serum 6.2 g/dl (6.3-8.2)
[2022-10-07 08:35] LABS: Alkaline Phosphatase 255 U/L (38-126)
--- NOTE | 2022-10-07 11:54 | CARE MANAGER ---
Addendum entered by [facility] 10/09/22 11:58: Oscar man/ [facility] called and stated that services will begin tomorrow for this patient. Kaity man/ [facility] confirmed that medications will be delivered today. Addendum entered by [facility] 10/09/22 08:37: I have attempted to contact patient's regarding discharge plans: no answer at this time VM left. Addendum entered by [facility] 10/09/22 07:31: Kaity man/ [facility] stated that patient IV antibiotics is covered at 100%. Patient also stated that she is wanting to return home w/ [facility] and not change to [facility]. Patient information/order for IV antibiotics, nursing, PT, OT and wound care will be faxed to [facility] once medically stable for discharge. Addendum entered by [facility] 10/08/22 12:12: Per Dr Armstrong patient will need 6 weeks of IV antibiotics: patient information/order will be faxed to [facility] and I will update patient/family with out of pocket expense. Patient will be ready for discharge soon. Addendum entered by [facility] 10/07/22 14:45: Monique man/ [facility] did evaluate this patient and explained home services to patient/. After lengthy conversation with patient/family and MD: patient has decided to return home w/ home health services (would like to use different agency than [facility]). I will continue to follow up with patient/family and MD during hospital admission. Discharge date is unknown at this time. Original Note: Spoke with patient and . Explained different options for discharge including home health, hospice, hospice at a facility, and SNF. The patient is adamant that she is going home and states he is supportive of that. They do request a referral to Hospice, but request they come to see them once discharged home. IMANI Durham, sent referral to [facility] and spoke with Monique Hercules from there.
--- NOTE | 2022-10-07 13:44 | PC.NURSE ---
1310 Dressing on pt coccyx changed by Phys Therapist Torsten Armstrong, [employer], and this RN present in room as well.
--- NOTE | 2022-10-07 13:45 | DIET.NUTRFU ---
Dietitian and risk management internship observed patient follow-up on sacral pressure ulcer with physician and rheumatology specialist today. Physician noted decrease in size with an increase in slough in the wound. Sacral bone is visible in the wound. Pt expressed pain with palpation. Will continue to provide ensure 3x/day with meals and prostat AWC 2x/day to meet increased energy and protein needs due to presence of stage 4 wound.
--- NOTE | 2022-10-07 14:18 | EXP.PHA.CONS ---
Pharmacy Consult Date: 10/07/22 Time: 14:18 Referring provider: DR. MARCANO Reason for Consult:: VANCOMYCIN DOSING Allergies Allergy/AdvReac Type Severity Reaction Status Date / Time hydroxyzine [From Vistaril] Allergy Severe Hives Verified 09/22/22 10:23 ketorolac Allergy Unknown Verified 09/22/22 10:23 allergy reaction morphine Allergy Unknown Verified 09/22/22 10:23 allergy reaction Home Medications Medication Instructions Recorded Confirmed Type apixaban 5 mg tablet (Eliquis) 5 mg PO BID Blood thinner/Hip 07/08/22 10/05/22 History Surgery oxycodone 10 mg tablet 10 mg PO QID Pain #120 tabs 09/15/22 10/05/22 Rx metoprolol tartrate 25 mg tablet 25 mg PO DAILY Blood pressure 09/23/22 10/05/22 History mirtazapine 15 mg tablet 15 mg PO HS Mood 09/23/22 10/05/22 History quetiapine 25 mg tablet 25 mg PO HS Mood 09/23/22 10/05/22 History tizanidine 4 mg tablet 4 mg PO BID muscle spasms 09/23/22 10/05/22 History clonazepam 0.5 mg tablet 0.5 mg PO TID PRN Anxiety 09/24/22 10/05/22 History wlaibxozonyfzjl-ytbdqoyoxrwottr-WG 5 ml PO Q6H PRN cold symptoms #118 10/02/22 10/05/22 Rx 2 mg-30 mg-10 mg/5 mL oral syrup mL (Bromfed DM) magnesium oxide 400 mg (241.3 mg 400 mg PO DAILY Supplement 10/05/22 10/05/22 History magnesium) tablet pantoprazole 40 mg tablet,delayed 40 mg PO DAILY Acid Reflux 10/05/22 10/05/22 History release amlodipine 10 mg tablet 10 mg PO DAILY Blood Pressure 10/06/22 10/06/22 History esomeprazole magnesium 40 mg 40 mg PO DAILY Acid Reflux 10/06/22 10/06/22 History granules delayed release for susp gabapentin 800 mg tablet 800 mg PO QID Pain 10/06/22 10/06/22 History lisinopril 30 mg tablet 30 mg PO BID Blood Pressure 10/06/22 10/06/22 History New Prescriptions to Start Prescriptions: Height: 1.63 m Weight: 54.5 kg Laboratory Results:: Laboratory Results - last 24 hr 10/06/22 20:30: Urine Color Yellow, Urine Appearance Sl cloudy, Urine pH 6.0, Ur Specific [place] 1.015, Urine Protein Trace, Urine Glucose (UA) Negative, Urine Ketones Negative, Urine Blood 3+, Urine Nitrate Negative, Urine Bilirubin Negative, Urine Urobilinogen 0.2, Ur Leukocyte Esterase 2+ A, Urine RBC 10-20, Urine WBC 10-20, Ur Squamous Epith Cells 3-5, Urine Bacteria 1+ 10/07/22 00:49: Stl Aeromonas (PCR) Not detected, Stl C. cayetanensis PCR Not detected, Stool Rotavirus (PCR) Not detected, Stl Adenov F 40/41 PCR Not detected, Stool Astrovirus (PCR) Not detected, Stool Campylobacter PCR Not detected, Stl C.difficile Tox PCR Not detected, Stool Cryptosporidium PCR Not detected, Stl E.coli Shiga Tox PCR Not detected, Stool E coli O157 PCR Not detected, Stl Enterotoxigenic E PCR Not detected, Stool EPEC (PCR) Not detected, Stool EAEC (PCR) Not detected, Stl E. histolytica PCR Not detected, Stool Giardia Lamblia PCR Not detected, Stool Salmonella PCR Not detected, Stool Sapovirus (PCR) Not detected, Stl P. shigelloides PCR Not detected, Stl Shigella/EIEC PCR Not detected, St Y.enterocolitica PCR Not detected, Stool Vibrio (PCR) Not detected, Stl Vibrio cholerae PCR Not detected, Stl Norovirus GI/GII PCR Not detected 10/07/22 07:10: WBC 4.0 L, RBC 4.24, Hgb 11.9 L, Hct 39.0, MCV 92.1, MCH 28.1, MCHC 30.5 L, RDW 17.9 H, Plt Count 257 D, MPV 9.0, Neut % (Auto) 78.4, Lymph % (Auto) 15.1, [place] % (Auto) 4.9, Eos % (Auto) 1.6, Baso % (Auto) 0.1, Neut # (Auto) 3.1, Lymph # (Auto) 0.6 L, [place] # (Auto) 0.2, Eos # (Auto) 0.1, Baso # (Auto) 0.0, Sodium 137, Potassium 4.2, Chloride 105, Carbon Dioxide 19 L, Anion Gap 17.2 H, BUN 32 H, Creatinine 1.25 H, Estimated Creat Clear 33, Estimated GFR 42 L, Est GFR ( Amer) 51 L, Glucose 120 H, Calcium 8.0 L, Magnesium 1.5 L, Total Bilirubin 0.3, AST 495 H*, ALT 225 H, Alkaline Phosphatase 255 H, NT-Pro-B Natriuret Pep 98053 H, Total Protein 6.2 L, Albumin 3.3 L D, Globulin 2.9, Albumin/Globulin Ratio 1.1 Medical History: Medical History (Updated 10/05/22 @ 19:18 by Jh Sheldon MD) A
--- NOTE | 2022-10-07 14:54 | EXP.SURG.CON ---
History of Present Illness *Admission Date: 10/05/22 *Reason for visit:: Sacral decubitus *History of present illness: This is a 77-year-old female seen in consultation with the primary service for evaluation of a sacral decubitus ulceration. During recent hospitalization she underwent bedside debridement of necrotic eschar (September 24, 2022). She was undergoing dressing changes after discharge. She was readmitted on October 05 secondary to hypoxia, overall debility, and leg pain. The surgical service was consulted for reevaluation of her sacral wound. Forwarded from admission H&P: Ms. Vann is a 77-year-old female with chronic pain, recurring right hip dislocation, recurring admissions to the hospital with recent prolonged course complicated by pneumonia and ICU stay on ventilator within the past 3 months. She presented to the hospital today because of worsening pain in her right leg per her report. Per ER documentation however, patient was at home and EMS was called. She was being evaluated by PT with home health and found to have low oxygen saturations when they arrived. Reportedly the saturation was in the 50s at home. Patient is not on home oxygen. EMS arrived and gave her a DuoNeb treatment and put her on O2 at 4 L per nasal cannula and she is around 90% at this time. She denies any other symptoms. No cough, chest pain, diarrhea. Does complain of some nausea and vomiting this morning but this is not uncommon for her. Complaining more of her leg pain than anything else and asking for pain medication upon arrival to the floor. Her chronic pain and fracture of her right femur limit her mobility. She spends most of her day either lying or in a chair. On work-up in the ER, patient found to have severely elevated BNP at 21,000. White cell count normal with no left shift. She is afebrile. Requiring 6 L to sat in the low 90s. Presence of an MAXIMILIANO with creatinine 1.5. Chest imaging obtained showing diffuse right-sided opacification concerning for pulmonary edema versus pneumonia. Medicine consulted for further admission. Discussed case with the ER, low concern for infection. Symptoms most consistent with pulmonary edema and heart failure. Antibiotics held at this time. After arriving to the floor, patient is at baseline mentation. Complaining of pain in her right leg. Denies any fevers. Spends most of her time laying on her left side. Decubitus wound appears healthy. No undermining. Minor slough present. Stable if not slightly better compared to exam on discharge at last hospitalization that I performed. [facility] Disclaimer: The information contained in this section may have been updated after the patient was seen, as this information can be updated by other users. Medical History Allergies Gallbladder disease Hx of dislocation of hip Hx of gastric ulcer Osteoarthritis Surgical History History of cholecystectomy History of hip surgery Family History Family history of diabetes mellitus type II Social History Smoking Status: Unknown if ever smoked second hand exposure: No alcohol intake: never substance use type: denies use current occupational status: retired Travel in the last 8 weeks: None household members: spouse housing: house lives independently: Yes marital status: current occupational exposures/hazards: No caffeine: Yes special parish needs: Yes agree to transfusion: Yes do you feel safe at home: Yes victim of physical abuse: No victim of emotional abuse: No victim of sexual abuse: No would you like helpful sources: No Review of Systems Constitutional Constitutional: Denies headache(s) ENT Ears, Nose, Mouth, and Throat: Denies headache(s) *Neurologic Neurologic: Denies
[2022-10-08] VITALS: O2SAT 2
--- NOTE | 2022-10-08 01:37 | PC.NURSE ---
pt refused q2h turn this round, she is comfortable in current position.
[2022-10-08 04:00] VITALS: BP 97/68; PULSE 80; RESP 22; TEMP 36.8; O2SAT 92; BMI 19.4
--- NOTE | 2022-10-08 06:23 | EXP.SURG.PN ---
Subjective Narrative: The patient is currently resting. No new issues with her wound per nursing. Exam Data for Last 24 hours Vital signs and Labs for Last 24 Hours: Temp Pulse Resp BP Pulse Ox O2 Del Method O2 Flow Rate 98.3 F 80 22 97/68 L 92 L Nasal Cannula 2 10/08/22 04:00 10/08/22 04:00 10/08/22 04:00 10/08/22 04:00 10/08/22 04:00 10/08/22 04:40 10/08/22 04:40 Laboratory Results - last 24 hr 10/07/22 07:10: WBC 4.0 L, RBC 4.24, Hgb 11.9 L, Hct 39.0, MCV 92.1, MCH 28.1, MCHC 30.5 L, RDW 17.9 H, Plt Count 257 D, MPV 9.0, Neut % (Auto) 78.4, Lymph % (Auto) 15.1, [place] % (Auto) 4.9, Eos % (Auto) 1.6, Baso % (Auto) 0.1, Neut # (Auto) 3.1, Lymph # (Auto) 0.6 L, [place] # (Auto) 0.2, Eos # (Auto) 0.1, Baso # (Auto) 0.0, Sodium 137, Potassium 4.2, Chloride 105, Carbon Dioxide 19 L, Anion Gap 17.2 H, BUN 32 H, Creatinine 1.25 H, Estimated Creat Clear 33, Estimated GFR 42 L, Est GFR ( Amer) 51 L, Glucose 120 H, Calcium 8.0 L, Magnesium 1.5 L, Total Bilirubin 0.3, AST 495 H*, ALT 225 H, Alkaline Phosphatase 255 H, NT-Pro-B Natriuret Pep 86985 H, Total Protein 6.2 L, Albumin 3.3 L D, Globulin 2.9, Albumin/Globulin Ratio 1.1 I & O for Last 24 hours: Intake & Output 10/05/22 10/06/22 10/07/22 10/08/22 11:59 11:59 11:59 11:59 Intake Total 1080 / 1080 780 / 780 1090 / 1090 Output Total 0 / 0 700 / 700 1974 / 1974 Balance 1080 / 1080 80 / 80 -885 / -885 Weight 118 lb 3.742 oz 120 lb 2.431 oz 114 lb Microbiology Reports for the Last 24 Hours: Microbiology 10/06/22 20:30 Urine,Clean Catch Urine Culture - Preliminary NO GROWTH AFTER 24 HOURS Constitutional Constitutional: no acute distress *Routine Respiratory Exam Respiratory: Absent respiratory distress *Routine Cardiovascular Exam Cardiovascular: Absent tachycardia *Routine Skin Exam Comments: Full evaluation deferred to coincide with timing of dressing changes (to allow patient to rest) Progress Note: A&P Assessment and plan (1) Decubitus ulcer of sacral region, stage 3: Problem details: Borderline stage IV secondary to sacral margin encroachment Status: Chronic Assessment and plan: Continue dressing changes as implemented per wound care
--- NOTE | 2022-10-08 06:41 | PC.NURSE ---
sacral wound dsg changed at 0630
[2022-10-08 07:17] LABS: Anion Gap 8.6 mEq/L (5-15); Blood Urea Nitrogen 50 mg/dl (7-17); Calcium 7.6 mg/dl (8.4-10.2); Carbon Dioxide 25 mmol/L (22.0-30.0); Chloride 106 mmol/L (98-107); Creatinine Clearance Estimated 33 mL/min (50-200); Estimated Glomerular Filt Rate 44 ml/min (>60); GFR (African American) 53 ML/MIN (>60); Glucose 89 mg/dl (74-100); Potassium 3.6 mmoL/L (3.5-5.1); Sodium 136 mmol/L (136-145)
[2022-10-08 07:18] LABS: Alanine Aminotransferase 105 U/L (12-78); Albumin Level 2.4 g/dl (3.5-5.0); Albumin/Globulin Ratio 0.7 (1.1-1.8); Alkaline Phosphatase 221 U/L (38-126); Aspartate Amino Transferase 93 U/L (14-36); Bilirubin,Total 0.2 mg/dl (0.2-1.3); Globulin 3.4 g/dL (1.3-3.2); Total Protein,Serum 5.8 g/dl (6.3-8.2)
[2022-10-08 07:32] LABS: Magnesium 1.8 mg/dl (1.6-2.3)
[2022-10-08 07:41] LABS: Hematocrit 29.6 % (37.0-47.0); Mean Corpuscular HGB Conc 30.2 g/dL (31.8-35.4); Mean Corpuscular Volume 92.5 fl (81-99); Platelet Count 422 K/mm3 (142-424); Red Cell Distribution Width 18.5 % (11.5-17.5); White Blood Count 5.7 K/mm3 (4.8-10.8)
[2022-10-08 07:42] LABS: Basophils % 0.2 % (0.1-2.0); Eosinophils % 0.5 % (0.1-12.0); Lymphocytes # 1.5 K/mm3 (0.7-4.5); Lymphocytes % 26.1 % (10-50); Mean Platelet Volume 7.9 fl (7.4-10.4); Monocytes # 0.4 K/mm3 (0.1-1.0); Monocytes % 6.8 % (1.7-9.3); Neutrophils # 3.8 K/mm3 (1.8-7.8); Neutrophils % 66.4 % (37.0-80.0)
[2022-10-08 08:00] VITALS: BP 110/59; PULSE 80; RESP 18; TEMP 36.4; O2SAT 97
--- NOTE | 2022-10-08 08:22 | EXP.PN ---
Subjective *Date: 10/08/22 *Time: 12:10 Interval history: She is saturating 97% on 2L this morning. Hgb is 9, decreased from 11.9 wbc is 5.7, increased from 4 cr is 1.2, decreased from 1.25 ast is 93, decreased from 495, alt 105, decreased from 225 She feels better overall. Exam Data for Last 24 hours Vital signs and Labs for Last 24 Hours: Temp Pulse Resp BP Pulse Ox O2 Del Method O2 Flow Rate 97.6 F 80 18 110/59 L 97 Nasal Cannula 2 10/08/22 08:00 10/08/22 08:00 10/08/22 08:00 10/08/22 08:00 10/08/22 08:00 10/08/22 08:00 10/08/22 08:00 Laboratory Results - last 24 hr 10/07/22 07:10: Sodium 137, Potassium 4.2, Chloride 105, Carbon Dioxide 19 L, Anion Gap 17.2 H, BUN 32 H, Creatinine 1.25 H, Estimated Creat Clear 33, Estimated GFR 42 L, Est GFR ( Amer) 51 L, Glucose 120 H, Calcium 8.0 L, Magnesium 1.5 L, Total Bilirubin 0.3, AST 495 H*, ALT 225 H, Alkaline Phosphatase 255 H, NT-Pro-B Natriuret Pep 77067 H, Total Protein 6.2 L, Albumin 3.3 L D, Globulin 2.9, Albumin/Globulin Ratio 1.1 10/08/22 06:11: WBC 5.7 D, RBC 3.20 L, Hgb 9.0 L D, Hct 29.6 L, MCV 92.5, MCH 28.0, MCHC 30.2 L, RDW 18.5 H, Plt Count 422 D, MPV 7.9, Neut % (Auto) 66.4, Lymph % (Auto) 26.1, [place] % (Auto) 6.8, Eos % (Auto) 0.5, Baso % (Auto) 0.2, Neut # (Auto) 3.8, Lymph # (Auto) 1.5, [place] # (Auto) 0.4, Eos # (Auto) 0.0, Baso # (Auto) 0.0, Sodium 136, Potassium 3.6, Chloride 106, Carbon Dioxide 25, Anion Gap 8.6, BUN 50 H D, Creatinine 1.20 H, Estimated Creat Clear 33, Estimated GFR 44 L, Est GFR ( Amer) 53 L, Glucose 89 D, Calcium 7.6 L, Magnesium 1.8 D, Total Bilirubin 0.2, AST 93 H D, ALT 105 H D, Alkaline Phosphatase 221 H, Total Protein 5.8 L, Albumin 2.4 L D, Globulin 3.4 H, Albumin/Globulin Ratio 0.7 L I & O for Last 24 hours: Intake & Output 10/05/22 10/06/22 10/07/22 10/08/22 23:59 23:59 23:59 23:59 Intake Total 240 / 600 1320 / 1320 1290 / 1390 100 / 100 Output Total 0 / 0 350 / 350 1425 / 2325 900 / 900 Balance 240 / 600 970 / 970 -135 / -935 -800 / -800 Weight 50.802 kg 53.63 kg 54.5 kg 51.71 kg Microbiology Reports for the Last 24 Hours: Microbiology 10/06/22 20:30 Urine,Clean Catch Urine Culture - Preliminary NO GROWTH AFTER 24 HOURS Constitutional Constitutional: no acute distress *Routine HEENT Exam Head: Present normocephalic Eye: Present EOMI and PERRL ENT: Present mucous membranes moist *Routine Neck Exam Neck: Present supple; Absent lymphadenopathy *Routine Respiratory Exam Respiratory: Present CTA bilaterally *Routine Cardiovascular Exam Cardiovascular: Present RRR *Routine Abdominal Exam Abdominal: Present soft and normoactive bowel sounds; Absent tenderness *Routine Extremities Exam Extremities: Absent cyanosis, clubbing or edema *Routine Skin Exam Comments: stage 4 sacral decubitus ulcer *Routine Neurological Exam Neurological: Present alert and oriented X3 Assessment and Plan *Assessment and plan (1) Acute CHF: Status: Acute Qualifiers: Heart failure type: diastolic Qualified Code(s): I50.31 - Acute diastolic (congestive) heart failure Category: Medical Code(s): I50.9 - Heart failure, unspecified (2) Pulmonary edema: Status: Acute Qualifiers: Chronicity: acute Qualified Code(s): J81.0 - Acute pulmonary edema Category: Medical Code(s): J81.1 - Chronic pulmonary edema (3) MAXIMILIANO (acute kidney injury): Status: Acute Category: Medical Code(s): N17.9 - Acute kidney failure, unspecified (4) Hepatitis: Status: Acute Category: Medical Code(s): K75.9 - Inflammatory liver disease, unspecified (5) Transaminitis: Status: Acute Category: Medical Code(s): R74.01 - Elevation of levels of liver transaminase levels (6) Recurrent dislocation, right hip: Status: Chronic Category: Medical Code(s): M24.451 - Re
[2022-10-08 08:29] LABS: C-Reactive Protein 44.9 mg/L (0-4)
--- NOTE | 2022-10-08 09:04 | PC.NURSE ---
COURTESY TECH NOTE; ROUNDED ON PT 0750, PT DENIED NEED FOR DRINK, ASSISTANCE WITH RESTROOM. ASSISTED PRIMARY TECH WITH Q2H TURN, LEFT SIDE LYING. CALL LIGHT WITHIN REACH, NO FURTHER REQUESTS AT THIS TIME LEA MUÑOZ
--- NOTE | 2022-10-08 12:25 | XR_ITS ---
FINAL REPORT CLINICAL HISTORY: Confirm PICC line placement COMPARISON: 1 day prior FINDINGS: A single portable view of the chest was obtained. Left-sided PICC line is present with the tip in the lower SVC. Cardiomegaly is noted. There are persistent pulmonary opacities worrisome for bilateral pneumonia. The bony thorax is intact. IMPRESSION: Left-sided PICC line tip in the lower SVC. Persistent pulmonary opacities worrisome for bilateral pneumonia. Reviewed, Interpreted and Dictated by Hunter Devi III, MD Transcribed by Mary Kate Viramontes Authenticated and [facility]
--- NOTE | 2022-10-08 12:25 | PC.NURSE ---
notified Dr Armstrong that pt has midline in place, dwell time for midline is [address] Armstrong to place order for PICC line 1211
--- NOTE | 2022-10-08 12:45 | PC.NURSE ---
93-94 % on RA resting.
[2022-10-08 15:54] VITALS: BP 100/52; PULSE 84; RESP 18; TEMP 36.6; O2SAT 98
[2022-10-08 20:00] VITALS: BP 102/55; PULSE 90; RESP 18; TEMP 36.7; O2SAT 100
[2022-10-09 04:00] VITALS: BMI 18.2
--- NOTE | 2022-10-09 07:02 | P.PN_ITS ---
Subjective Narrative: The patient is currently resting. Per nursing, dressing changes are continuing daily without difficulty. Nursing also reports that wound has shown no changes consistent with progressive necrosis or cellulitis. Exam Data for Last 24 hours Vital signs and Labs for Last 24 Hours: Temp Pulse Resp BP Pulse Ox O2 Del Method O2 Flow Rate 98.0 F 90 18 102/55 L 100 Nasal Cannula 2 10/08/22 20:00 10/08/22 20:00 10/08/22 20:00 10/08/22 20:00 10/08/22 20:00 10/09/22 06:40 10/09/22 06:40 Laboratory Results - last 24 hr 10/06/22 20:30: Urine Color Yellow, Urine Appearance Sl cloudy, Urine pH 6.0, Ur Specific [place] 1.015, Urine Protein Trace, Urine Glucose (UA) Negative, Urine Ketones Negative, Urine Blood 3+, Urine Nitrate Negative, Urine Bilirubin Negative, Urine Urobilinogen 0.2, Ur Leukocyte Esterase 2+ A, Urine RBC 10-20, Urine WBC 10-20, Ur Squamous Epith Cells 3-5, Urine Bacteria 1+ 10/08/22 06:11: WBC 5.7 D, RBC 3.20 L, Hgb 9.0 L D, Hct 29.6 L, MCV 92.5, MCH 28.0, MCHC 30.2 L, RDW 18.5 H, Plt Count 422 D, MPV 7.9, Neut % (Auto) 66.4, Lymph % (Auto) 26.1, [place] % (Auto) 6.8, Eos % (Auto) 0.5, Baso % (Auto) 0.2, Andrew t # (Auto) 3.8, Lymph # (Auto) 1.5, [place] # (Auto) 0.4, Eos # (Auto) 0.0, Baso # (Auto) 0.0, Sodium 136, Potassium 3.6, Chloride 106, Carbon Dioxide 25, Anion Gap 8.6, BUN 50 H D, Creatinine 1.20 H, Estimated Creat Clear 33, Estimated GFR 44 L, Est GFR ( Amer) 53 L, Glucose 89 D, Calcium 7.6 L, Magnesium 1.8 D, Total Bilirubin 0.2, AST 93 H D, ALT 105 H D, Alkaline Phosphatase 221 H, C- Reactive Protein 44.9 H, Total Protein 5.8 L, Albumin 2.4 L D, Globulin 3.4 H, Albumin/Globulin Ratio 0.7 L I & O for Last 24 hours: Intake & Output 10/06/22 10/07/22 10/08/22 10/09/22 11:59 11:59 11:59 11:59 Intake Total 1080 / 1080 780 / 780 1270 / 1630 2230 / 2230 Output Total 0 / 0 700 / 700 2425 / 3175 2900 / 2900 Balance 1080 / 1080 80 / 80 -1155 / -1545 -670 / -670 Weight 118 lb 3.742 oz 120 lb 2.431 oz 114 lb 107 lb Microbiology Reports for the Last 24 Hours: Microbiology 10/06/22 20:30 Urine,Clean Catch Urine Culture - Preliminary Gram Negative Rods Constitutional Constitutional: no acute distress *Routine Respiratory Exam Respiratory: Absent respiratory distress *Routine Cardiovascular Exam Cardiovascular: Absent tachycardia *Routine Skin Exam Comments: Defer evaluation to timing of dressing changes to allow patient to rest Progress Note: A&P Assessment and plan (1) Decubitus ulcer of sacral region, stage 3: Problem details: Borderline stage IV secondary to sacral margin encroachment Status: Chronic Assessment and plan: No acute need for additional debridement Continue antibiotics as per primary service With regard to potential underlying osteomyelitis ...would not recommend bone biopsy as we do not have definitive evidence (MRI, bone scan, etc.) of osteomyelitis. Encroaching the bone for biopsy would potentially create increased risk for osteomyelitis if not already present. In addition, deeper soft tissue biopsy would likely be cross contaminated (potentially confounding further therapy). As obtaining definitive diagnosis would be difficult/unreasonable (comorbid conditions, etc.) I agree with the current plan to continue broad-based coverage for potential underlying osteomyelitis via PICC.
[2022-10-09 07:06] LABS: Basophils % 0.1 % (0.1-2.0); Eosinophils # 0.1 K/mm3 (0.0-0.4); Eosinophils % 1.9 % (0.1-12.0); Hematocrit 30.4 % (37.0-47.0); Hemoglobin 9.5 g/dL (12.2-16.2); Lymphocytes # 1.3 K/mm3 (0.7-4.5); Lymphocytes % 26.6 % (10-50); Mean Corpuscular HGB Conc 31.2 g/dL (31.8-35.4); Mean Corpuscular Hemoglobin 28.9 pg (27.0-31.2); Mean Corpuscular Volume 92.6 fl (81-99); Mean Platelet Volume 8.1 fl (7.4-10.4); Monocytes # 0.4 K/mm3 (0.1-1.0); Monocytes % 7.9 % (1.7-9.3); Neutrophils % 63.5 % (37.0-80.0); Platelet Count 380 K/mm3 (142-424); Red Blood Count 3.28 M/mm3 (4.20-5.40); Red Cell Distribution Width 18.7 % (11.5-17.5); White Blood Count 4.7 K/mm3 (4.8-10.8)
[2022-10-09 07:08] LABS: Alanine Aminotransferase 114 U/L (12-78); Albumin Level 2.5 g/dl (3.5-5.0); Albumin/Globulin Ratio 0.7 (1.1-1.8); Alkaline Phosphatase 472 U/L (38-126); Anion Gap 8.1 mEq/L (5-15); Aspartate Amino Transferase 152 U/L (14-36); Bilirubin,Total 0.3 mg/dl (0.2-1.3); Blood Urea Nitrogen 50 mg/dl (7-17); Calcium 7.6 mg/dl (8.4-10.2); Carbon Dioxide 28 mmol/L (22.0-30.0); Chloride 104 mmol/L (98-107); Creatinine Clearance Estimated 37 mL/min (50-200); Estimated Glomerular Filt Rate 54 ml/min (>60); GFR (African American) 65 ML/MIN (>60); Globulin 3.6 g/dL (1.3-3.2); Glucose 84 mg/dl (74-100); Potassium 3.1 mmoL/L (3.5-5.1); Sodium 137 mmol/L (136-145); Total Protein,Serum 6.1 g/dl (6.3-8.2)
[2022-10-09 07:09] LABS: Magnesium 1.5 mg/dl (1.6-2.3)
[2022-10-09 08:00] VITALS: BP 116/51; PULSE 73; RESP 20; TEMP 36.4; O2SAT 100
--- NOTE | 2022-10-09 08:45 | PC.NURSE ---
COURTESY TECH NOTE; ROUNDED ON PT 0745, PT DENIED NEED FOR DRINK. ASSISTED PRIMARY TECH TO CHANGE BEDDING AND BRIEF, AND ADJUST PUREWICK. BARRIER CREAM AND POWDER ADDED TO GROIN AREA. PRIMARY TECH Q2H TURNED PT TO SUPINE POSITION. CALL LIGHT WITHIN REACH, NO FURTHER REQUESTS AT THIS TIME LEA MUÑOZ
--- NOTE | 2022-10-09 10:58 | PC.NURSE ---
TECH NOTE; PT 02 SAT OF 94 ON RA WHILE RESTING, NURSE NOTIFIED Christian GUZMAN, SRNA
--- NOTE | 2022-10-09 13:11 | EXP.DC.SUM ---
General Admission date:: 10/05/22 Discharge date: 10/09/22 HPI HPI HPI: This is a 77-year-old female seen in consultation with the primary service for evaluation of a sacral decubitus ulceration. During recent hospitalization she underwent bedside debridement of necrotic eschar (September 24, 2022). She was undergoing dressing changes after discharge. She was readmitted on October 05 secondary to hypoxia, overall debility, and leg pain. The surgical service was consulted for reevaluation of her sacral wound. Forwarded from admission H&P: Ms. Vann is a 77-year-old female with chronic pain, recurring right hip dislocation, recurring admissions to the hospital with recent prolonged course complicated by pneumonia and ICU stay on ventilator within the past 3 months. She presented to the hospital today because of worsening pain in her right leg per her report. Per ER documentation however, patient was at home and EMS was called. She was being evaluated by PT with home health and found to have low oxygen saturations when they arrived. Reportedly the saturation was in the 50s at home. Patient is not on home oxygen. EMS arrived and gave her a DuoNeb treatment and put her on O2 at 4 L per nasal cannula and she is around 90% at this time. She denies any other symptoms. No cough, chest pain, diarrhea. Does complain of some nausea and vomiting this morning but this is not uncommon for her. Complaining more of her leg pain than anything else and asking for pain medication upon arrival to the floor. Her chronic pain and fracture of her right femur limit her mobility. She spends most of her day either lying or in a chair. On work-up in the ER, patient found to have severely elevated BNP at 21,000. White cell count normal with no left shift. She is afebrile. Requiring 6 L to sat in the low 90s. Presence of an MAXIMILIANO with creatinine 1.5. Chest imaging obtained showing diffuse right-sided opacification concerning for pulmonary edema versus pneumonia. Medicine consulted for further admission. Discussed case with the ER, low concern for infection. Symptoms most consistent with pulmonary edema and heart failure. Antibiotics held at this time. After arriving to the floor, patient is at baseline mentation. Complaining of pain in her right leg. Denies any fevers. Spends most of her time laying on her left side. Decubitus wound appears healthy. No undermining. Minor slough present. Stable if not slightly better compared to exam on discharge at last hospitalization that I performed. Hospital Course Hospital Course Hospital Course: Ms. 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 She was admitted on 10/05 after home health services found her hypoxic with SpO2 in the 50s. At baseline she doesn't use supplemental oxygen. She hasn't had dyspnea. She was admitted with CHF exacerbation. #sacral osteomyelitis #acute hypoxic respiratory failure #CHF exacerbation #chronic right femur fracture #stage 4 sacral decubitus ulcer #severe protein calorie malnutrition #MAXIMILIANO, resolved #transaminitis, resolved #hypomagnesemia, resolved acute hypoxic respiratory failure likely secondary to CHF exacerbation and analgesic medications -echocardiogram revealed LVEF 55-60% and grade 2 diastolic dysfunction. the patient diuresed well. She was discharged on lasix po 20mg daily and will need to follow up with Cardiology. -By the day of discharge she was saturating well on room air. sacral osteomyelitis / stage 4 sacral decubitus ulcer -the patient received levaquin and flagyl from 09/26/22-09/30/22. She also received 20 days of Levaquin in June. per , she has [facility]
--- NOTE | 2022-10-09 13:59 | PC.NURSE ---
pt and family educated on dressing changes and verbalized understanding
--- NOTE | 2022-10-09 14:26 | HMH.PHAINT1 ---
Pharmacy Intervention Comments: Discharge medications were reviewed with patient. - Discussed home health assisting with infusion of daptomycin and ertapenem. -Discussed the decrease in dose of clonazepam and gabapentin. - Discussed the addition of furosmide (told to watch for increased urination) Steven Ramsey, PharmD student
--- NOTE | 2022-10-13 15:30 | CARE MANAGER ---
Attempted to contact patient x 2 related to hospital discharge. No VM option. BIN Garcia
== END 2022-10-09 15:52 | disposition home health service (06) | DRG 291 ==
LOC: ER 15:59 → 2ND 16:14
PROVIDERS: Internal Medicine; Admitting Provider Internal Medicine Adolescent Medicine; Emergency Provider Emergency Medicine; PCP Emergency Medicine; Visit Provider Internal Medicine Adolescent Medicine
DX: I11.0 Hypertensive heart disease with heart failure (principal); E43 Unspecified severe protein-calorie malnutrition; L89.154 Pressure ulcer of sacral region, stage 4; I50.31 Acute diastolic (congestive) heart failure; J96.01 Acute respiratory failure with hypoxia; N17.9 Acute kidney failure, unspecified; Z68.1 Body mass index [BMI] 19.9 or less, adult; M86.9 Osteomyelitis, unspecified; K75.9 Inflammatory liver disease, unspecified; Z79.891 Long term (current) use of opiate analgesic; F32.A Depression, unspecified; E83.42 Hypomagnesemia; Z74.01 Bed confinement status; F41.9 Anxiety disorder, unspecified
CPT/HCPCS: 36410; 36569; 36415; 71045; 80053; 80329; 81001; 82803; 83735; 83880; 84145; 84484; 85025; 86140; 87086; 87088; 87186; 87506; 87636; 93005; 93306; 94761; 97110; 97163; 97165; 97530; 99285; C1751; J0878; J1335; J2020; J2543; J3475